=== PATIENT | male | born 1975 | race Caucasian/White ===

== ENCOUNTER → 2017-04-11 14:47 | Outpatient (CLI) | payer MEDICAID, SELFPAY ==
--- NOTE | 2017-04-11 14:50 | RAD_ITS ---
STUDY: X-RAY - LUMBAR SPINE REASON FOR EXAM: Male, 41 years old. Back pain with radiculopathy TECHNIQUE: Five view(s) of the lumbar spine were obtained. COMPARISON: None FINDINGS: There is reversal of the normal lumbar lordosis. There is no significant scoliosis. There is normal alignment of the vertebrae. There is minimal wedging of L3, L4 and L5. There are small osteophytes in the lumbar spine. There are no significant disc abnormalities. There is a vascular stent in the expected location of the left common iliac artery. RAD/L/S Spine Min 4 Views IMPRESSION: There are mild bony degenerative changes in the lumbar spine. There is minimal wedging of L3, L4 and L5 which is likely degenerative in etiology and chronic. Electronically Signed: Emy Garcia MD at 20:32 EST Tel Direct: [phone], Service support ,
--- NOTE | 2017-04-11 14:50 | RAD_ITS ---
STUDY: X-RAY - CERVICAL SPINE REASON FOR EXAM: Male, 41 years old. Neck pain with radiculopathy TECHNIQUE: Three view(s) of the cervical spine were obtained. COMPARISON: None FINDINGS: Normal anterior atlantoaxial articulation. Normal odontoid process. There is reversal of the normal cervical lordosis. There are small osteophytes on C5 and C6. There is moderate disc space narrowing at C5-6. There is mild disc space narrowing at C4-5. There is no prevertebral soft tissue swelling. The lung apices are clear. RAD/Cerv Spine 2 or 3 Views IMPRESSION: There are moderate degenerative disc changes at C5-6. There are mild degenerative disc changes at C4-5. Electronically Signed: Emy Garcia MD at 20:27 EST Tel Direct: [phone], Service support ,
== END ==
PROVIDERS: Family Provider Internal Medicine; PCP Internal Medicine; Visit Provider Nurse Practitioner Family
DX: R32 Unspecified urinary incontinence (principal); R20.0 Anesthesia of skin; N52.9 Male erectile dysfunction, unspecified; M54.5 Low back pain; M54.2 Cervicalgia; M54.12 Radiculopathy, cervical region
CPT/HCPCS: 72040; 72110

== ENCOUNTER 2017-04-22 14:00 | Outpatient (RCR) | payer MEDICAID, SELFPAY ==
--- NOTE | 2017-01-28 14:02 | HP.PTEVAL ---
Patient's Visit Information MELBA BRADLEY JR is a 41 year old M referred to Physical Therapy by Alejandro Lincoln MD with a diagnosis of LOW BACK PAIN. Date of Evaluation: 01/28/17 Physical Therapist: Hakan Reeder PT, - Visit Plan Frequency: 2x /Week Duration: 4 Weeks Plan: Aquatic PT for DLS,LE strengthening,conditioning,flexablity - Subjective Subjective: This 41 y/o male presents to physical therapy with low back pain for about year. Patient was recently diagnosed with severe PVD which patient has had a stent place in left leg. Patient has be under care of DR and said unable to find a pulse in legs . Thus plans to do US of legs to assess circulation. Patient started on blood thinner-plavix. 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 Patient had catherization.Symptoms worse walking,standing,bending ,lifting. Patient unable to perfform ADL'S and job demands due to pain. Thus had to stop working. Patient c/o parathesia/tingling.Due to complications with PVD and low back pain patient has impairments with daily function limits with gait.Patient has difficuilty sleeping at night. Bowel/bladder good. Coughing/sneezing -.Walking less than 5mins. SOCIAL: single. VOCATION: unemployed - Pain Bilateral Back Pain Intensity (Out of 10): 6 Pain Intensity Range: 10 Bilateral Lower Extremity Pain Intensity (Out of 10): 4 Pain Intensity Range: 10 - Objective POSTURE: anterior pelic tilt. GAIT: normal chris. NEURO: C/O partahesia/tingling legs,reflexes L3-4,L5-S1 2/3. PALPATION: tender L-S. LUMBAR ROM: flexion mod loss,extension min loss,side glides min. MMT: quads/hams /hip 4-/5 ankle 4/5. FLEXABILITY: mod hams tightness. SYMMTRIES: align - Special Tests L/S Slump test right side: Negative L/S Left Straight Leg Raise: Negative L/S Right Straight Leg Raise: Negative Lumbar Standing: Flexion - Mechanical Response: No effect Lumbar Standing: Flexion - Symptoms During Testing: Increases Lumbar Standing: Flexion - Symptoms After Testing: Worse Lumbar Standing: Extension - Mechanical Response: No effect Lumbar Standing: Extension - Symptoms During Testing: Increases Lumbar Standing: Extension - Symptoms After Testing: Worse - Goals Goal 1:: Independant with Aquatics Goal Time Frame: 4-6 Weeks Goal 2:: Independant with posture for ADL'S Goal Time Frame: 4-6 Weeks Goal 3:: Decrease leg and back pain by 40% or greater to improve function with walking and standing. Goal Time Frame: 4-6 Weeks Goal 4:: Patient increase strength of BLE to 4/5 to improve function witgh walking and standing. Goal Time Frame: 4-6 Weeks Goal 5:: Patient to improve lumbar min loss dfor function of recovery Goal Time Frame: 4-6 Weeks Goal 6:: Patient be able to walk greatwer than 5min to improve function. Goal Time Frame: 4-6 Weeks - Rehabilitation Potential Physical Therapy Diagnosis: Patient has multiple comlexity issues along with severe PVD affecting legs as well as low back pain impairs ability to walk or stand limitied distances ,pain ,and decrease strength Rehabilitation Potential: Fair - Anticipated Interventions Patient/Client Instruction: Educate patient on: Condition, Plan of Care For the Purpose of:: To decrease pain, To increase ROM, To improve muscle performance and motor function, To improve ability to perform ADL's, To increase tolerance to activity/condition/position, To improve performance and independence with ADL's, To improve ability of physical actions for home/community/work/leisure, To improve gait and locomotor functions, To improve health of tissue, To decrease soft tissue restriction, To increase flexibility/ROM, To improve endurance, To foster healthy habits, To prevent re-injury Therapeutic Exercise to Include: Strength training, Endurance training, Body mechanics, Postural training, Flexibilty training, In an aquatic setting, Dynamic Lumbar Stabilization Comment: BLE For the Purpose of:: To decrease pain, To increase ROM, To improve muscle performance and motor function, To improve ability to perform ADL's, To increase tolerance to activity/condition/position, To improve ability of physical actions for home/community/work/leisure, To improve gait and locomotor functions, To improve health of tissue, To decrease soft tissue restriction, To increase flexibility/ROM, To improve endurance, To improve ability to perform tasks related to life management Thank you for the opportunity to evaluate your patient. For Medicare and Medicare HMO plans, please review the plan of care and approve it. It will need to be FAXED BACK to us at [phone] for Medicare purposes. Please let me know if there are questions or concerns regarding this plan of care. Physician Signature: Date:
--- NOTE | 2017-04-22 14:22 | HP.PTDCSUM_ITS ---
HP - PT D/C Summary It has been my pleasure to treat MELBA BRADLEY under orders from Alejandro Lincoln MD, for the diagnosis of LOW BACK PAIN for a total of 14 visit(s). Discharge Date: 04/22/17 Please see the following information for a summary of their discharge status. - Subjective Subjective: Not much better..plan to see surgeon lumbar [facility] - Pain Bilateral Back Pain Intensity (Out of 10): 7 Bilateral Lower Extremity Pain Intensity (Out of 10): 7 LUE Pain Intensity (Out of 10): 7 - Overall Improvement % Improvement: 45 - Objective Objective/Function: POSTURE: MILD FOWARD POSTURE. GAIT: MILD FOWARD POSTURE SLOW ZULEYMA. PALAPATION: TENDER L-S. MMT: QUADS/HAMS 4-/5 ,HIP 4-/5 ,ANKLE 4/ 5. LUMBAR ROM: MOD LUMBAR MOD ,EXTENSION SEVERE. FLEXABLITY: hams mod - Goals Goal 1:: Independant with Aquatics Goal Progress: Progressing Goal 2:: Independant with posture for ADL'S Goal Progress: Progressing Goal 3:: Decrease leg and back pain by 50% or greater to improve function with walking and standing. Goal Progress: Progressing Goal 4:: Patient increase strength of BLE to 4/5 to improve function witgh walking and standing. Goal Progress: Progressing Goal 5:: Patient to improve lumbar min loss dfor function of recovery Goal Progress: Progressing Goal 6:: Patient be able to walk greatwer than 5min to improve function. Goal Progress: Progressing - Plan Plan: D/C TO DR CASTILLO SPECIALIST LUMBAR - D/C Information Discharge Comments: If there are questions or concerns regarding this patient's physical therapy, please feel free to call me at [phone]. Thank you for the referral of this patient. Sincerely, Hakan Reeder, PT,
== END 2017-04-22 19:00 | disposition home or self-care (01) ==
LOC: PT 14:00
PROVIDERS: Family Provider Internal Medicine; PCP Internal Medicine; Visit Provider Internal Medicine
DX: M54.5 Low back pain (principal)
CPT/HCPCS: 97113; 97162; 97530

== ENCOUNTER → 2017-05-28 13:48 | Outpatient (CLI) | payer MEDICAID, SELFPAY ==
[2017-05-28 16:01] LABS: Anion Gap 9 (5-15); BUN 6 mg/dL (7-18); BUN/Creat Ratio 8.8 RATIO (10-20); Calcium,Total 8.6 mg/dL (8.5-10.1); Chloride 96 mmol/L (98-107); Creatinine, Serum 0.68 mg/dL (0.70-1.30); EST Glomerular Filtration Rate 135 mL/min (>60); Est Glom Filt Rate - Afr Amer 163 mL/min (>60); Glucose 109 mg/dL (74-106); Potassium 3.1 mmol/L (3.5-5.1); Sodium Level 131 mmol/L (136-145)
== END ==
PROVIDERS: Family Provider Internal Medicine; PCP Internal Medicine; Visit Provider Nurse Practitioner Family
DX: I10 Essential (primary) hypertension (principal)
CPT/HCPCS: 36415; 80048

== ENCOUNTER → 2017-05-30 10:06 | Outpatient (CLI) | payer MEDICAID, SELFPAY ==
--- NOTE | 2017-05-30 10:08 | MRI_ITS ---
STUDY: MRI THORACIC SPINE WITHOUT CONTRAST REASON FOR EXAM: Male, 41 years old. Back pain with left arm pain and numbness. TECHNIQUE: Standardized fat and water weighted pulse sequences were obtained in the sagittal and axial planes. COMPARISON: None. FINDINGS: Normal kyphosis of the thoracic spine. There is no substantial scoliosis. There is multilevel degenerative disc disease of the midthoracic spine. There is no demonstrated focal disc herniation. There is disc desiccation, mild loss of the disc height with juxta-endplate bone marrow edema at the T8-9 level consistent with degenerative disc disease and type I discogenic endplate degeneration (sagittal STIR series 7, image 5). There is a vertebral body hemangioma involving the right posterior-lateral aspect of the L1 vertebra measuring 13 mm in diameter (axial T2 series 8, image 1). Normal visualized thoracic cord. The soft tissue structures are unremarkable. MRI/Spine Thoracic (Routine) IMPRESSION: 1. T8-9 advanced degenerative disc disease with type I discogenic endplate degeneration. 2. Multilevel degenerative disc disease of the midthoracic spine but without a demonstrated disc herniation. 3. L1 vertebral body hemangioma. Electronically Signed: Jey Cruz DO at 13:32 EDT Tel , Service support ,
== END ==
PROVIDERS: Family Provider Internal Medicine; PCP Internal Medicine; Visit Provider Orthopaedic Surgery
DX: M54.6 Pain in thoracic spine (principal)
CPT/HCPCS: 72146

== ENCOUNTER → 2017-06-25 10:29 | Outpatient (CLI) | payer MEDICAID, SELFPAY ==
[2017-06-25 12:21] LABS: Absolute Lymphocyte Count 1.75 X10^3/ul (0.83-4.51); Absolute Neutrophil Count 3.6 X10^3/uL (2.0-7.7); Basophil# 0.04 X10^3/uL; Basophil% 0.6 % (0-1); Eosinophil# 0.22 X10^3/uL; Eosinophils% 3.5 % (0-5); Hematocrit 47.3 % (40-54); Hemoglobin 16.5 g/dl (13.0-16.5); Lymphocyte # 1.75 X10^3/ul (4.0); Lymphocyte % 28.1 % (19-41); Mean Corp Hgb Conc 34.9 g/gl (32-36); Mean Corpuscular Hgb 31.4 pg (27.0-32.0); Mean Corpuscular Volume 89.9 fL (80-94); Mean Platelet Vol. 11.4 fl (6.2-12.0); Monocyte# 0.59 X10^3/uL; Monocyte% 9.5 % (0-10); Platelet Count 184 K/mm3 (150-450); RBC Distribution Width CV 13.1 % (11.6-14.6); RBC Distribution Width SD 42.9 fl (35.1-43.9); Red Blood Count 5.26 M/mm3 (4.6-6.2); White Blood Count 6.2 K/mm3 (4.4-11.0)
[2017-06-25 12:31] LABS: POSITIVE COUNT NO; POSITIVE DIFFERENTIAL NO; POSITIVE MORPHOLOGY NO
[2017-06-25 12:40] LABS: Anion Gap 7 (5-15); BUN 8 mg/dL (7-18); BUN/Creat Ratio 11.4 RATIO (10-20); Calcium,Total 8.8 mg/dL (8.5-10.1); Chloride 102 mmol/L (98-107); EST Glomerular Filtration Rate 130 mL/min (>60); Est Glom Filt Rate - Afr Amer 157 mL/min (>60); Glucose 92 mg/dL (74-106); Potassium 4.1 mmol/L (3.5-5.1); Sodium Level 135 mmol/L (136-145)
== END ==
PROVIDERS: Family Provider Internal Medicine; PCP Internal Medicine; Visit Provider Nurse Practitioner Family
DX: I10 Essential (primary) hypertension (principal); D69.6 Thrombocytopenia, unspecified
CPT/HCPCS: 80048; 85025

== ENCOUNTER 2017-07-06 15:05 | Emergency (ER) | payer MEDICAID, SELFPAY ==
[2017-07-06 15:06] VITALS: BP 141/67; PULSE 126; RESP 18; TEMP 37; O2SAT 95; BMI 26.6
[2017-07-06 16:22] VITALS: BP 141/101; PULSE 108; RESP 16; O2SAT 95
[2017-07-06] MEDS: Ondansetron 4 MG/2 ML Vial IV (16:23)
[2017-07-06] MEDS: HYDROmorphone 1 MG/ML Syringe IV ×2 (16:23→18:04)
[2017-07-06] MEDS: 0.9% Normal Saline 1,000 ML 1000 ML IV (16:23)
[2017-07-06 16:24] LABS: Absolute Neutrophil Count 9.1 X10^3/uL (2.0-7.7); Basophil# 0.02 X10^3/uL; Basophil% 0.2 % (0-1); Eosinophil# 0.29 X10^3/uL; Eosinophils% 2.3 % (0-5); Hematocrit 45.4 % (40-54); Hemoglobin 16.2 g/dl (13.0-16.5); Lymphocyte % 17.9 % (19-41); Mean Corp Hgb Conc 35.7 g/gl (32-36); Mean Corpuscular Hgb 31.5 pg (27.0-32.0); Mean Corpuscular Volume 88.3 fL (80-94); Mean Platelet Vol. 10.6 fl (6.2-12.0); Monocyte# 1.06 X10^3/uL; Monocyte% 8.2 % (0-10); Neutrophil # 9.05 X10^3/uL (2.7-7.7); Neutrophil % 70.4 % (47-70); Platelet Count 149 K/mm3 (150-450); RBC Distribution Width CV 12.8 % (11.6-14.6); RBC Distribution Width SD 40.8 fl (35.1-43.9); Red Blood Count 5.14 M/mm3 (4.6-6.2); White Blood Count 12.9 K/mm3 (4.4-11.0)
[2017-07-06 16:25] LABS: POSITIVE COUNT NO; POSITIVE DIFFERENTIAL NO; POSITIVE MORPHOLOGY NO
[2017-07-06 16:28] LABS: Prothrombin Time (Protime)PT. 12.9 SECONDS (11.7-14.9)
[2017-07-06 16:29] LABS: Partial Thromboplast Time 25.6 Seconds (24.1-36.2)
[2017-07-06 16:33] LABS: Anion Gap 10 (5-15); BUN 10 mg/dL (7-18); BUN/Creat Ratio 15.4 RATIO (10-20); Calcium,Total 8.8 mg/dL (8.5-10.1); Chloride 100 mmol/L (98-107); Creatinine, Serum 0.65 mg/dL (0.70-1.30); EST Glomerular Filtration Rate 142 mL/min (>60); Est Glom Filt Rate - Afr Amer 172 mL/min (>60); Estimated Creatinine Clearance 135.59 ml/min; Glucose 130 mg/dL (74-106); Potassium 3.7 mmol/L (3.5-5.1); Sodium Level 136 mmol/L (136-145)
[2017-07-06 16:45] LABS: Lactic Acid 1.5 mmol/L (0.4-2.0)
[2017-07-06 17:04] VITALS: BP 154/98; PULSE 114; RESP 22; O2SAT 98
[2017-07-06] MEDS: Heparin Injection 5,000 UNITS/ML Syringe 5000 UNITS IV (17:43)
[2017-07-06] MEDS: HEPARIN/D5w 25,000 UNITS 25,000 UNITS/250 ML IV.SOLN. 11 UNITS IV (17:43)
[2017-07-06 18:07] VITALS: BP 153/104; PULSE 119; RESP 17; O2SAT 95
--- NOTE | 2017-07-06 18:16 | NURSING ---
JAYME GIBBS ARRIVED IN ED; WE HAVE NO ROOM NUMBER AT RECEIVING FACILITY AND DID NOT CALL FOR AIR TRANSPORT. ATTEMPTED TO CALL A NURSE REPORT NUMBER GIVEN TO US BY TRANSFER LINE [phone] AND WAS DISCONNECTED BOTH TIMES. BEDSIDE REPORT GIVEN TO [facility].
--- NOTE | 2017-07-06 18:23 | ED.DCSUM_ITS ---
- ER Visit Summary Date of Service: 07/06/17 Chief Complaint: Left leg pain and numbness History of Present Illness: The patient is a [address] Lincoln. He has a history of a left iliac stent that was placed in December [address] Ray at [facility]. Patient was taken off his Plavix on July 04 due to a cervical fusion that was performed by Dr. Dawson at [facility] on July 01. He reports that yesterday he began experiencing left leg pain and numbness. He states his pain is 10 out of 10 severity. Is an aching pain that is much worse with movement or walking. Is taken Tylenol and oxycodone without relief. Physical Examination: Vitals: Stable. Afebrile. General: Well-nourished and well-developed. Head: Normocephalic atraumatic. Neck: Supple, no lymphadenopathy. No JVD. Nontender. Cardiovascular: Regular rate and rhythm. No murmurs. Respiratory: No respiratory distress. Clear to auscultation bilaterally. Abdominal: Soft, nontender, nondistended, normal bowel sounds. No guarding, rebound, or peritoneal signs. Back: Nontender. Extremities: Surgical site on the left iliac crest has mild surrounding contusion. There is no erythema, warmth, or induration to suggest infection. He has a 2+ right femoral pulse. I am unable to palpate a left femoral pulse. He is left leg is pale and cold. I am unable to Doppler a dorsalis pedis or posterior tibial pulse.. Skin: Normal color, no rash. Neurologic: Alert and oriented ?3. Cranial nerves II through XII are intact. He is able to move his left leg. He does have paresthesias.. Psych: Normal affect. Test Results: CBC is marked for white count of 12.9 with platelets of 149 lymphocytes of 18. Chem-7 is more for glucose 130 creatinine 0.65. Lactic acid is 1.5. INR is 1.0 and PTT is 25.6. Emergency Department Course and Treatment: Patient was given Dilaudid for his pain. After discussion with the spine surgeon, Dr. Dawson, he was started on a heparin bolus with a drip. Treatment Plan: The patient was discussed with Dr. Ray, the vascular surgeon at [facility], who is fine with patient going to urinate first to the hospital since he had this recent spinal fusion. I am awaiting to speak with a vascular surgeon from there. The patient will be transported by air due to the acute nature of an ischemic leg and the possibility of developing a hematoma from his recent cervical fusion and the need for 1 hour neuro checks. Disposition: Transferred in serious condition. Impression: 1. Acute ischemia left leg. 2. History of left iliac stent. 3. Cervical fusion July 01, 2017. 4. Critical care time 30 minutes. This note was generated with [employer] dictation software. It may contain incorrect words, spelling, and punctuation that were not noted in review of the chart prior to signing ED Disposition - Plan for ED Patient: Chief Complaint: Numb/Ting Referrals: Alejandro Lincoln MD [Primary Care Provider] -
== END 2017-07-06 18:19 | disposition home or self-care (01) ==
PROVIDERS: Emergency Provider Emergency Medicine; Family Provider Internal Medicine; PCP Internal Medicine
DX: I99.8 Other disorder of circulatory system (principal); Z95.828 Presence of other vascular implants and grafts; Z98.1 Arthrodesis status; J44.9 Chronic obstructive pulmonary disease, unspecified; I10 Essential (primary) hypertension; E78.00 Pure hypercholesterolemia, unspecified; Z72.0 Tobacco use; Z79.82 Long term (current) use of aspirin; Z79.891 Long term (current) use of opiate analgesic; Z79.899 Other long term (current) drug therapy
CPT/HCPCS: 80048; 83605; 85025; 85610; 85730; 96361; 96365; 96375; 96376; 99285; J2405

== ENCOUNTER 2017-07-22 14:29 | Emergency (ER) | payer MEDICAID, SELFPAY ==
[2017-07-22 14:30] VITALS: BP 132/90; PULSE 129; RESP 18; TEMP 36.7; O2SAT 97; BMI 27.4
--- NOTE | 2017-07-22 15:07 | RAD_ITS ---
STUDY: X-RAY CHEST REASON FOR EXAM: Male, 42 years old. Cough. Flulike symptoms. TECHNIQUE: Flulike symptoms. COMPARISON: None. FINDINGS: The lungs are clear and expanded. There is no demonstrated pleural abnormality. Normal size heart. Normal mediastinum and michael. Normal visualized pulmonary arteries. Normal visualized aortic arch and descending thoracic aorta. Normal visualized thoracic spine. Prior fusion in the lower cervical spine. There is no demonstrated abnormality of the visualized soft tissue structures of the upper abdomen. RAD/Chest PA and Lateral IMPRESSION: Normal x-ray examination of the chest. Electronically Signed: Davion Lanza MD at 15:41 EDT Tel [phone], Service support ,
--- NOTE | 2017-07-22 15:17 | ED.VISSUMM ---
- ER Visit Summary Date of Service: 07/22/17 Chief Complaint: Earache, sore throat, and myalgias History of Present Illness: The patient is a 42 M who presents with right ear pain, sore throat, and myalgias that have been getting worse over the past 2 days. Patient states his pain is aching. Patient states nothing seems to make it better or worse. Patient states he had recent surgery at [facility] for vascular occlusion of his left lower extremity. Patient was also concerned over possible infection of his incision. Patient denies any discharge or drainage from the incision. Patient denies any fevers but admits to some chills and sweats. Admits to some nausea but denies any vomiting. Patient states he has been constipated due to the pain medication but states this has resolved. Physical Examination: Vital signs showed a blood pressure 132/90 heart rate of 129, respiratory rate of 18, temperature of 98.1, pulse ox over 97% on room air patient is in no acute distress. Oral mucosa is pink and moist. The left tympanic membrane is erythematous. The right tympanic membrane has a mild effusion. Nasal mucosa is pink and moist. Neck is supple. Trachea is midline. No JVD noted. Heart was regular and tachycardic. Lungs are clear and equal bilateral. There is good respiratory effort noted. Abdomen is soft and nontender. Cranial nerves II through XII are intact. There are no focal motor or sensory deficits noted. Incision is clean and dry. There is some mild erythema consistent with healing. There is no discharge or drainage. There is no tenderness noted. The remaining physical exam is within normal limits. Test Results: CBC and basic metabolic profile were within normal limits. INR was therapeutic at 2.1. Rapid strep and influenza swabs were negative. PA and lateral chest x-ray does not show any acute cardiopulmonary process. Emergency Department Course and Treatment: Patient was given IV fluids here. Patient felt better on reevaluation. Patient was given prescription for Augmentin. Patient was instructed to follow-up with his primary care physician and surgeon as scheduled. Patient understood and was agreeable with the plan. All questions were answered. Disposition: Discharge home Impression: Left otitis media, mild dehydration This note was generated with [employer] dictation software. It may contain incorrect words, spelling, and punctuation that were not noted in review of the chart prior to signing ED Disposition - Plan for ED Patient: Disposition: Home or Assisted Living Chief Complaint: General Illness Diagnosis: Left acute otitis media, Dehydration, mild Instructions: ED Otitis Media Acute Adult, ED Dehydration Prescriptions: Amox/Clavulanate Tablet [Augmentin Tablet] 875 mg PO Q12H #20 tab Referrals: Alejandro Lincoln MD [Primary Care Provider] -
[2017-07-22] MEDS: 0.9% Normal Saline 1,000 ML 1000 ML IV (15:18)
--- NOTE | 2017-07-22 15:20 | ED.DCSUM_ITS ---
- ER Visit Summary Date of Service: 07/22/17 Chief Complaint: Earache, sore throat, and myalgias History of Present Illness: The patient is a 42 M who presents with right ear pain, sore throat, and myalgias that have been getting worse over the past 2 days. Patient states his pain is aching. Patient states nothing seems to make it better or worse. Patient states he had recent surgery at for vascular occlusion of his left lower extremity. Patient was also concerned over possible infection of his incision. Patient denies any discharge or drainage from the incision. Patient denies any fevers but admits to some chills and sweats. Admits to some nausea but denies any vomiting. Patient states he has been constipated due to the pain medication but states this has resolved. Physical Examination: Vital signs showed a blood pressure 132/90 heart rate of 129, respiratory rate of 18, temperature of 98.1, pulse ox over 97% on room air patient is in no acute distress. Oral mucosa is pink and moist. The left tympanic membrane is erythematous. The right tympanic membrane has a mild effusion. Nasal mucosa is pink and moist. Neck is supple. Trachea is midline. No JVD noted. Heart was regular and tachycardic. Lungs are clear and equal bilateral. There is good respiratory effort noted. Abdomen is soft and nontender. Cranial nerves II through XII are intact. There are no focal motor or sensory deficits noted. Incision is clean and dry. There is some mild erythema consistent with healing. There is no discharge or drainage. There is no tenderness noted. The remaining physical exam is within normal limits. Test Results: CBC and basic metabolic profile were within normal limits. INR was therapeutic at 2.1. Rapid strep and influenza swabs were negative. PA and lateral chest x-ray does not show any acute cardiopulmonary process. Emergency Department Course and Treatment: Patient was given IV fluids here. Patient felt better on reevaluation. Patient was given prescription for Augmentin. Patient was instructed to follow-up with his primary care physician and surgeon as scheduled. Patient understood and was agreeable with the plan. All questions were answered. Disposition: Discharge home Impression: Left otitis media, mild dehydration This note was generated with [email or web address] dictation software. It may contain incorrect words, spelling, and punctuation that were not noted in review of the chart prior to signing ED Disposition - Plan for ED Patient: Disposition: Home or Assisted Living Chief Complaint: General Illness Diagnosis: Left acute otitis media, Dehydration, mild Instructions: ED Otitis Media Acute Adult, ED Dehydration Prescriptions: Amox/Clavulanate Tablet [Augmentin Tablet] 875 mg PO Q12H #20 tab Referrals: Alejandro Lincoln MD [Primary Care Provider] -
[2017-07-22 15:29] LABS: Absolute Lymphocyte Count 1.17 X10^3/ul (0.83-4.51); Absolute Neutrophil Count 7.9 X10^3/uL (2.0-7.7); Basophil# 0.02 X10^3/uL; Basophil% 0.2 % (0-1); Eosinophil# 0.06 X10^3/uL; Eosinophils% 0.6 % (0-5); Hematocrit 35.3 % (40-54); Hemoglobin 12.1 g/dl (13.0-16.5); Lymphocyte # 1.17 X10^3/ul (4.0); Lymphocyte % 11.9 % (19-41); Mean Corp Hgb Conc 34.3 g/gl (32-36); Mean Corpuscular Hgb 31.4 pg (27.0-32.0); Mean Corpuscular Volume 91.7 fL (80-94); Mean Platelet Vol. 10.2 fl (6.2-12.0); Monocyte# 0.64 X10^3/uL; Monocyte% 6.5 % (0-10); Neutrophil # 7.89 X10^3/uL (2.7-7.7); Neutrophil % 80.6 % (47-70); Platelet Count 280 K/mm3 (150-450); RBC Distribution Width CV 13.3 % (11.6-14.6); Red Blood Count 3.85 M/mm3 (4.6-6.2); White Blood Count 9.8 K/mm3 (4.4-11.0)
[2017-07-22 15:37] LABS: International Normalized Ratio 2.1; Prothrombin Time (Protime)PT. 23.2 SECONDS (11.7-14.9)
[2017-07-22 15:40] LABS: Anion Gap 8 (5-15); BUN 4 mg/dL (7-18); BUN/Creat Ratio 5.7 RATIO (10-20); Calcium,Total 8.4 mg/dL (8.5-10.1); Chloride 106 mmol/L (98-107); Creatinine, Serum 0.71 mg/dL (0.70-1.30); EST Glomerular Filtration Rate 129 mL/min (>60); Est Glom Filt Rate - Afr Amer 156 mL/min (>60); Estimated Creatinine Clearance 119.81 ml/min; Glucose 91 mg/dL (74-106); Potassium 3.4 mmol/L (3.5-5.1); Sodium Level 141 mmol/L (136-145)
[2017-07-22 15:41] LABS: POSITIVE COUNT NO; POSITIVE DIFFERENTIAL NO; POSITIVE MORPHOLOGY NO
[2017-07-22 17:23] VITALS: BP 129/72; PULSE 118; RESP 14; O2SAT 97
== END 2017-07-22 17:26 | disposition home or self-care (01) ==
PROVIDERS: Emergency Provider Emergency Medicine; Family Provider Internal Medicine; PCP Internal Medicine
DX: H66.92 Otitis media, unspecified, left ear (principal); E86.0 Dehydration; I10 Essential (primary) hypertension; E78.00 Pure hypercholesterolemia, unspecified; I73.9 Peripheral vascular disease, unspecified; Z72.0 Tobacco use; Z79.82 Long term (current) use of aspirin; Z79.01 Long term (current) use of anticoagulants; Z79.899 Other long term (current) drug therapy
CPT/HCPCS: 36415; 71046; 80048; 85025; 85610; 87077; 87804; 87880; 96360; 99284; J7030

== ENCOUNTER 2017-08-09 21:39 | Emergency (ER) | payer MEDICAID, SELFPAY ==
[2017-08-09 21:39] VITALS: BP 128/90; PULSE 107; RESP 15; TEMP 36.9; BMI 25.8
[2017-08-09 22:24] LABS: Absolute Lymphocyte Count 2.38 X10^3/ul (0.83-4.51); Absolute Neutrophil Count 3.1 X10^3/uL (2.0-7.7); Basophil# 0.04 X10^3/uL; Basophil% 0.6 % (0-1); Differential Indicated SCAN CRITERIA MET; Eosinophil# 0.43 X10^3/uL; Eosinophils% 6.7 % (0-5); Hematocrit 42.4 % (40-54); Hemoglobin 14.5 g/dl (13.0-16.5); Lymphocyte # 2.38 X10^3/ul (4.0); Lymphocyte % 36.9 % (19-41); Mean Corp Hgb Conc 34.2 g/gl (32-36); Mean Corpuscular Hgb 31.6 pg (27.0-32.0); Mean Corpuscular Volume 92.4 fL (80-94); Mean Platelet Vol. 11.2 fl (6.2-12.0); Monocyte# 0.54 X10^3/uL; Monocyte% 8.4 % (0-10); Neutrophil # 3.05 X10^3/uL (2.7-7.7); Neutrophil % 47.2 % (47-70); POSITIVE COUNT YES; POSITIVE DIFFERENTIAL NO; POSITIVE MORPHOLOGY NO; Platelet Count 189 K/mm3 (150-450); RBC Distribution Width CV 14.5 % (11.6-14.6); RBC Distribution Width SD 48.7 fl (35.1-43.9); Red Blood Count 4.59 M/mm3 (4.6-6.2); White Blood Count 6.5 K/mm3 (4.4-11.0)
[2017-08-09 22:25] LABS: International Normalized Ratio 1.9; Prothrombin Time (Protime)PT. 21.5 SECONDS (11.7-14.9)
[2017-08-09 22:29] LABS: D-Dimer Quantitative (DVT/PE) 0.46 FEU/ug/m (0.27-0.49)
[2017-08-09 22:37] LABS: Anion Gap 6 (5-15); BUN 4 mg/dL (7-18); Calcium,Total 8.6 mg/dL (8.5-10.1); Chloride 112 mmol/L (98-107); Creatinine, Serum 0.57 mg/dL (0.70-1.30); EST Glomerular Filtration Rate 164 mL/min (>60); Est Glom Filt Rate - Afr Amer 198 mL/min (>60); Estimated Creatinine Clearance 154.62 ml/min; Glucose 110 mg/dL (74-106); Potassium 3.3 mmol/L (3.5-5.1); Sodium Level 142 mmol/L (136-145)
[2017-08-09 22:52] LABS: Atypical Lymphocyte RARE %
--- NOTE | 2017-08-09 23:04 | ED.VISSUMM ---
- ER Visit Summary Date of Service: 08/09/17 Chief Complaint: Left foot pain History of Present Illness: The patient is a 42 M who presents with left foot and leg pain. He describes this as spasms or a pins and needles sensation. His pain began yesterday. It was 10 out of 10. He took Tylenol with relief and states his pain is currently only 6 out of 10. He does have some paresthesias in the left foot. He had neck surgery on July 01. He was taken off of his Plavix for a week before and afterwards. He came to the emergency department due to left leg pain and was found to have a pulseless foot and was life flighted to [facility] for an acute arterial occlusion. He did have 2 clots which were surgically removed and also believes a stent was placed in the left leg. He has had some chronic foot pain and paresthesias since that time. However when he felt for a posterior tibial pulse today which she is normally able to feel he was unable to palpate it became concerned and presented here to the emergency department. Physical Examination: Afebrile heart rate 107 vitals otherwise normal Heart regular rhythm slightly tachycardic Lungs are clear Abdomen soft The left lower extremity is warm and dry his capillary refill is 2-3 seconds he has easily palpable posterior tibial and dorsalis pedis pulses he had has sensation which is intact to light touch he has no calf tenderness he has some mild foot tenderness compartments are soft Test Results: CBC normal. BMP notable for potassium 3.3. INR 1.9. D-dimer 0.46. Emergency Department Course and Treatment: Patient has no evidence of ischemia or acute arterial occlusion. Patient has easily palpable dorsalis pedis and posterior tibial pulses. Here in the emergency department the patient again felt for his pulses and now states that he can in fact feel them. He does not have clinical evidence of a DVT either. He has no calf tenderness he has no soft tissue swelling. His d-dimer is within normal limits. We will still have him get a venous duplex as well as an outpatient definitive follow-up. He states that he has Percocet at home but that this causes constipation and he does not like to take it. However he does report that he believes he may need something more than Tylenol so was given a prescription for tramadol. He was advised to follow-up as an outpatient. He was instructed on specific signs and symptoms to monitor for and conditions under which to return to the emergency department. He was discharged. Treatment Plan: [] Disposition: Discharge Impression: Left foot pain This note was generated with [employer] dictation software. It may contain incorrect words, spelling, and punctuation that were not noted in review of the chart prior to signing ED Disposition - Plan for ED Patient: Chief Complaint: Lower Extremity Injury Referrals: Alejandro Lincoln MD [Primary Care Provider] -
--- NOTE | 2017-08-09 23:11 | ED.DEP ---
ED Disposition - Plan for ED Patient: Chief Complaint: Lower Extremity Injury Instructions: ED Muscle Aching Prescriptions: traMADol [Ultram] 50 mg PO Q6H PRN 3 Days #12 tab PRN Reason: Pain Referrals: Alejandro Lincoln MD [Primary Care Provider] -
[2017-08-09 23:25] VITALS: BP 124/68; PULSE 78; RESP 18; O2SAT 96
== END 2017-08-09 23:26 | disposition home or self-care (01) ==
LOC: ED 22:17
PROVIDERS: Emergency Provider Emergency Medicine; Family Provider Internal Medicine; PCP Internal Medicine
DX: M79.672 Pain in left foot (principal); I73.9 Peripheral vascular disease, unspecified; J44.9 Chronic obstructive pulmonary disease, unspecified; I10 Essential (primary) hypertension; E78.00 Pure hypercholesterolemia, unspecified; Z86.718 Personal history of other venous thrombosis and embolism; Z72.0 Tobacco use; Z79.01 Long term (current) use of anticoagulants; Z79.82 Long term (current) use of aspirin; Z79.899 Other long term (current) drug therapy
CPT/HCPCS: 80048; 85025; 85379; 85610; 99282; A4216

== ENCOUNTER 2017-08-13 12:13 | Outpatient (RCR) | payer MEDICAID, SELFPAY ==
[2017-07-15 18:21] LABS: International Normalized Ratio 2.2; Prothrombin Time (Protime)PT. 24.1 SECONDS (11.7-14.9)
[2017-07-22 10:26] LABS: Prothrombin Time (Protime)PT. 22.3 SECONDS (11.7-14.9)
[2017-08-05 12:20] LABS: International Normalized Ratio 1.6
[2017-08-13 14:40] LABS: International Normalized Ratio 2.2; Prothrombin Time (Protime)PT. 24.1 SECONDS (11.7-14.9)
== END 2017-08-13 13:00 | disposition home or self-care (01) ==
LOC: MTLAB 12:13
PROVIDERS: Family Provider Internal Medicine; PCP Internal Medicine; Visit Provider Nurse Practitioner Family
DX: Z79.899 Other long term (current) drug therapy (principal)
CPT/HCPCS: 36415; 85610

== ENCOUNTER 2017-09-10 09:56 | Outpatient (RCR) | payer MEDICAID, SELFPAY ==
[2017-08-27 10:54] LABS: International Normalized Ratio 1.8; Prothrombin Time (Protime)PT. 20.5 SECONDS (11.7-14.9)
[2017-09-03 12:41] LABS: International Normalized Ratio 1.8; Prothrombin Time (Protime)PT. 21.3 SECONDS (11.7-14.9)
[2017-09-10 12:07] LABS: International Normalized Ratio 1.7; Prothrombin Time (Protime)PT. 20.3 SECONDS (11.7-14.9)
== END 2017-09-10 11:00 | disposition home or self-care (01) ==
LOC: MTLAB 09:56
PROVIDERS: Family Provider Internal Medicine; PCP Internal Medicine; Visit Provider Nurse Practitioner Family
DX: Z79.899 Other long term (current) drug therapy (principal)
CPT/HCPCS: 36415; 85610

== ENCOUNTER 2017-10-08 12:08 | Outpatient (RCR) | payer MEDICAID, SELFPAY ==
[2017-09-18 12:49] LABS: International Normalized Ratio 2.5
[2017-10-01 14:32] LABS: International Normalized Ratio 1.9; Prothrombin Time (Protime)PT. 21.7 SECONDS (11.7-14.9)
== END 2017-10-08 13:00 ==
LOC: MTLAB 12:08
PROVIDERS: Family Provider Internal Medicine; PCP Internal Medicine; Visit Provider Nurse Practitioner Family
DX: Z79.899 Other long term (current) drug therapy (principal)
CPT/HCPCS: 36415; 85610

== ENCOUNTER 2017-11-12 13:56 | Outpatient (RCR) | payer MEDICAID, SELFPAY ==
[2017-10-22 12:39] LABS: International Normalized Ratio 1.7; Prothrombin Time (Protime)PT. 19.6 SECONDS (11.7-14.9)
[2017-10-29 14:41] LABS: Prothrombin Time (Protime)PT. 22.4 SECONDS (11.7-14.9)
[2017-11-12 16:25] LABS: International Normalized Ratio 1.6; Prothrombin Time (Protime)PT. 19.1 SECONDS (11.7-14.9)
== END 2017-11-12 15:00 | disposition home or self-care (01) ==
LOC: MTLAB 13:56
PROVIDERS: Family Provider Internal Medicine; PCP Internal Medicine; Visit Provider Nurse Practitioner Family
DX: Z79.899 Other long term (current) drug therapy (principal)
CPT/HCPCS: 36415; 85610

== ENCOUNTER 2017-12-02 10:46 | Outpatient (RCR) | payer MEDICAID, SELFPAY ==
[2017-11-19 10:18] LABS: Absolute Lymphocyte Count 2.18 X10^3/ul (0.83-4.51); Absolute Neutrophil Count 3.5 X10^3/uL (2.0-7.7); Basophil# 0.04 X10^3/uL; Basophil% 0.6 % (0-1); Eosinophil# 0.29 X10^3/uL; Eosinophils% 4.3 % (0-5); Hematocrit 50.6 % (40-54); Hemoglobin 17.4 g/dl (13.0-16.5); Lymphocyte # 2.18 X10^3/ul (4.0); Lymphocyte % 32.7 % (19-41); Mean Corp Hgb Conc 34.4 g/gl (32-36); Mean Corpuscular Hgb 30.2 pg (27.0-32.0); Mean Corpuscular Volume 87.7 fL (80-94); Monocyte# 0.64 X10^3/uL; Monocyte% 9.6 % (0-10); Neutrophil % 52.5 % (47-70); Platelet Count 169 K/mm3 (150-450); RBC Distribution Width CV 14.4 % (11.6-14.6); RBC Distribution Width SD 46.5 fl (35.1-43.9); Red Blood Count 5.77 M/mm3 (4.6-6.2); White Blood Count 6.7 K/mm3 (4.4-11.0)
[2017-11-19 10:19] LABS: International Normalized Ratio 1.9; Prothrombin Time (Protime)PT. 21.7 SECONDS (11.7-14.9)
[2017-11-19 10:21] LABS: POSITIVE COUNT NO; POSITIVE DIFFERENTIAL NO; POSITIVE MORPHOLOGY NO
[2017-11-19 10:39] LABS: ALB/GLOB Ratio 1.1 RATIO (0.9-2.4); AST(SGOT) 15 U/L (15-37); Alanine Aminotransfer ALT/SGPT 25 U/L (16-61); Albumin, Serum 3.6 g/dL (3.2-5.0); Alkaline Phosphatase 126 U/L (45-117); Anion Gap 9 (5-15); BUN 10 mg/dL (7-18); BUN/Creat Ratio 13.2 RATIO (10-20); Calcium,Total 8.8 mg/dL (8.5-10.1); Chloride 106 mmol/L (98-107); Cholesterol 173 mg/dL (200); Creatinine, Serum 0.76 mg/dL (0.70-1.30); EST Glomerular Filtration Rate 118 mL/min (>60); Est Glom Filt Rate - Afr Amer 143 mL/min (>60); Globulin 3.4 g/dL (2.2-4.2); Glucose 89 mg/dL (74-106); High Density Lipoprotein 30 mg/dL; Potassium 4.4 mmol/L (3.5-5.1); Sodium Level 142 mmol/L (136-145); Triglycerides 193 mg/dL; Very Low Density Lipoprotein 39 mg/dL (5-40)
[2017-12-02 12:33] LABS: International Normalized Ratio 2.2; Prothrombin Time (Protime)PT. 24.7 SECONDS (11.7-14.9)
== END 2017-12-02 12:00 | disposition home or self-care (01) ==
LOC: MTLAB 10:46
PROVIDERS: Family Provider Internal Medicine; PCP Internal Medicine; Visit Provider Nurse Practitioner Family
DX: Z79.899 Other long term (current) drug therapy (principal); E78.5 Hyperlipidemia, unspecified; D69.6 Thrombocytopenia, unspecified
CPT/HCPCS: 36415; 80053; 80061; 85025; 85610

== ENCOUNTER 2018-01-13 09:00 | Outpatient (RCR) | payer MEDICAID, SELFPAY ==
--- NOTE | 2017-12-30 13:17 | HP.PTEVAL_ITS ---
Patient's Visit Information MELBA BRADLEY is a 42 year old M referred to Physical Therapy by SHANAE DAWSON with a diagnosis of SPONDYLOSIS WITH MYELOPATHY CERVICL REGION,CERVICAL RADICULOPATHY. Date of Evaluation: 12/30/17 Physical Therapist: Hakan Reeder PT, - Visit Plan Frequency: 2x /Week Duration: 4 Weeks Plan: Aquatic PT cervical ROM ,BUE/LE ROM ,STRENGTH ,ENDURANCE ,POSTURAL EX' - Subjective Subjective: This 42 y/o male presents to physical therapy with cervical fusion anterior on June done DR Dawson at [facility]. Patient d/c next day with [employer] collar and need fww for home. Patient then had complication DVT in left severe pain/swelling went to ER then life flighted to [facility] .Thus had surgery to remove blood clots and replaced stents in femoral artery. Patient was in hospital for 1week d/c to home. Patient has to get INR checked ever week. Patient has no arm symptoms ,just legs symptoms with fatigue and tired.C/O parathesia/tingling left foot. Denies BERMUDEZ/ ti nnutus/naseau/dizziness.Patient has severe leg pain when walking 5min and standing. Patient better with rest in recliner. Patient sleping okay at night. Patient did have PT prior to surgery. Patient blood pressure can elevate. Patient surgery affected QOL and function with ADL'S. SOCIAL: . VOCATION: unemployed - Pain Bilateral Neck Pain Intensity (Out of 10): 7 Pain Intensity Range: 10 Bilateral Lower Extremity Pain Intensity (Out of 10): 7 Pain Intensity Range: 10 - Objective POSTURE: mild foward posture ,rounded shoulders. GAIT: normal chris. NEURO: denies UE parathesia/tingling,reflexes C5-6-7 1/3,c/o parathesia feet diminished light touch. PALPATION: tender UT/levator. CERVICAL ROM: flexion min loss,lateral flexion/rotation mod loss,extension mod loss. BUE AROM: WFL. MMT: 4/5 except shoulder 4-/5. MMT: quad 3+/5hams 4-/5 left hip flexion 3+/5 ankle 4-/5,right 4/5 - Special Tests C/S Radiculapathy - Left Upper limb tension test: Negative C/S Radiculapathy - Right Upper limb tension test: Negative - Goals Goal 1:: Independant with Aquatic PT Goal Time Frame: 4-6 Weeks Goal 2:: Decrease cervival pain and leg symptoms by 50% or greater to improve function Goal Time Frame: 4-6 Weeks Goal 3:: Patient to be I ndependant with posture for ADL'S Goal Time Frame: 4-6 Weeks Goal 4:: Patient improve strength UE/LE to improve function with ADL'S. Goal Time Frame: 4-6 Weeks Goal 5:: Pateint improve ADL'S and housework tasks with min limitations Goal Time Frame: 4-6 Weeks Goal 6:: Patient to improve neck owestry by 5 points to improve function - Rehabilitation Potential Physical Therapy Diagnosis: This patient has multiple complexity issues with cervical fusion [place] DVT's in left leg had surgery to remove clot. Patient has cervical pain with decrease cervical ROM,strength weakness left leg from DVT'S post surgeru along with PVD with comorbities to infleunce patien condtion Rehabilitation Potential: Good - Anticipated Interventions Patient/Client Instruction: Educate patient on: Condition, Plan of Care For the Purpose of:: To decrease pain, To increase ROM, To improve muscle performance and motor function, To improve ability to perform ADL's, To increase tolerance to activity/condition/position, To improve ability of physical actions for home/community/work/leisure, To improve health of tissue, To decrease soft tissue restriction, To increase flexibility/ROM, To improve health and function, To improve ability to perform tasks related to life management Therapeutic Exercise to Include: Strength training, Body mechanics, Postural training, Flexibilty training, In an aquatic setting, Active ROM For the Purpose of:: To decrease pain, To increase ROM, To improve muscle performance and motor function, To improve ability to perform ADL's, To increase tolerance to activity/condition/position, To improve performance and independence with ADL's, To improve ability of physical actions for home/community/work/leisure, To improve health of tissue, To decrease soft tissue restriction, To increase flexibility/ROM, To improve ability to perform tasks related to life management Thank you for the opportunity to evaluate your patient. For Medicare and Medicare HMO plans, please review the plan of care and approve it. It will need to be FAXED BACK to us at [phone] for Medicare purposes. Please let me know if there are questions or concerns regarding this plan of care. Physician Sig nature: Date:
--- NOTE | 2018-03-02 11:15 | HP.PTDCNRP_ITS ---
HP - Discharge Summary (1) - Patient Information MELBA BRADLEY was seen in my office for initial evaluation on 12/30/17. The following Plan of Care was established for this patient: Initial Frequency: 2x /Week Initial Duration: 4 Weeks - Anticipated Interventions Patient/Client Instruction: Educate patient on: Condition, Plan of Care For the Purpose of:: To decrease pain, To increase ROM, To improve muscle perfo rmance and motor function, To improve ability to perform ADL's, To increase tolerance to activity/condition/position, To improve ability of physical actions for home/community/work/leisure, To improve health of tissue, To decrease soft tissue restriction, To increase flexibility/ROM, To improve health and function, To improve ability to perform tasks related to life management Therapeutic Exercise to Include: Strength training, Body mechanics, Postural training, Flexibilty training, In an aquatic setting, Active ROM For the Purpose of:: To decrease pain, To increase ROM, To improve muscle performance and motor function, To improve ability to perform ADL's, To increase tolerance to activity/condition/position, To improve performance and in dependence with ADL's, To improve ability of physical actions for home/community/work/leisure, To improve health of tissue, To decrease soft tissue restriction, To increase flexibility/ROM, To improve ability to perform tasks related to life management This patient was last seen in our office 01/13/18. Pertinent comments regarding their Physical therapy will appear below: Patient seen for PT for cervical fusion in Aquatic PT for ROM ,strengthening and posture,conditioning thus is d/c. At this point I will be discontinuing this patient from physical therapy. I would be happy to see this patient again in the future if found appropriate by the physician. Thank you! Hakan Reeder, PT, Cert MDT, OCS
== END 2018-01-13 19:00 | disposition home or self-care (01) ==
LOC: PT 09:00
PROVIDERS: Family Provider Internal Medicine; PCP Internal Medicine
DX: M47.12 Other spondylosis with myelopathy, cervical region (principal); M54.12 Radiculopathy, cervical region
CPT/HCPCS: 97113; 97162

== ENCOUNTER 2018-02-11 09:47 | Outpatient (RCR) | payer MEDICAID, SELFPAY ==
[2018-01-23 10:29] LABS: International Normalized Ratio 1.1; Prothrombin Time (Protime)PT. 13.9 SECONDS (11.7-14.9)
[2018-01-30 10:33] LABS: International Normalized Ratio 1.8
[2018-02-11 12:52] LABS: International Normalized Ratio 2.4
== END 2018-02-13 09:50 | disposition home or self-care (01) ==
LOC: LAB 09:47
PROVIDERS: Family Provider Internal Medicine; PCP Internal Medicine; Referring Provider Nurse Practitioner Family; Visit Provider Nurse Practitioner Family
DX: Z79.899 Other long term (current) drug therapy (principal)
CPT/HCPCS: 36415; 85610

== ENCOUNTER 2018-03-18 15:40 | Outpatient (RCR) | payer MEDICAID, SELFPAY ==
[2018-01-22 10:11] VITALS: BMI 26.9
[2018-03-05 14:27] VITALS: BMI 27.3
[2018-03-18 19:30] LABS: International Normalized Ratio 2.2; Prothrombin Time (Protime)PT. 24.9 SECONDS (11.7-14.9)
== END 2018-03-18 16:40 | disposition home or self-care (01) ==
LOC: LAB 15:40
PROVIDERS: Family Provider Internal Medicine; PCP Internal Medicine; Referring Provider Nurse Practitioner Family; Visit Provider Nurse Practitioner Family
DX: Z79.899 Other long term (current) drug therapy (principal)
CPT/HCPCS: 36415; 85610

== ENCOUNTER 2018-04-24 09:00 | Outpatient (RCR) | payer MEDICAID, SELFPAY ==
[2018-04-17 10:25] VITALS: BMI 27.3
[2018-04-24 10:22] LABS: International Normalized Ratio 2.4; Prothrombin Time (Protime)PT. 26.2 SECONDS (11.7-14.9)
== END 2018-05-14 13:41 | disposition home or self-care (01) ==
LOC: LAB 09:00
PROVIDERS: Family Provider Internal Medicine; PCP Internal Medicine; Referring Provider Nurse Practitioner Family; Visit Provider Nurse Practitioner Family
DX: Z79.01 Long term (current) use of anticoagulants (principal)
CPT/HCPCS: 36415; 85610

== ENCOUNTER 2018-06-05 10:56 | Outpatient (RCR) | payer MEDICAID, SELFPAY ==
[2018-05-15 13:42] VITALS: BMI 27.6
[2018-06-05 10:26] VITALS: BMI 27.6
[2018-06-05 12:29] LABS: International Normalized Ratio 2.5; Prothrombin Time (Protime)PT. 26.7 SECONDS (11.7-14.9)
[2018-06-05 12:37] LABS: Anion Gap 7 (5-15); BUN 7 mg/dL (7-18); Calcium,Total 8.4 mg/dL (8.5-10.1); Chloride 109 mmol/L (98-107); Creatinine, Serum 0.78 mg/dL (0.70-1.30); EST Glomerular Filtration Rate 115 mL/min (>60); Est Glom Filt Rate - Afr Amer 139 mL/min (>60); Glucose 99 mg/dL (74-106); Potassium 4.2 mmol/L (3.5-5.1); Sodium Level 141 mmol/L (136-145)
== END 2018-06-14 23:59 ==
LOC: BIMLAB 10:56
PROVIDERS: Family Provider Internal Medicine; PCP Internal Medicine; Referring Provider Nurse Practitioner Family; Visit Provider Nurse Practitioner Family
DX: Z79.01 Long term (current) use of anticoagulants (principal)
CPT/HCPCS: 36415; 80048; 85610

== ENCOUNTER → 2018-06-15 10:35 | Outpatient (CLI) | payer MEDICAID, SELFPAY ==
[2018-06-15 09:51] VITALS: BMI 27.6
[2018-06-15 10:38] LABS: Squamous Epithelial Cells - UA 0 SEEN /hpf (0-5)
[2018-06-15 12:28] LABS: Color, Urine Yellow (Yellow); Glucose, Dipstick Normal (Normal); Ketone-Dipstick Negative (Negative); Leukocyte Esterase-Dipstick 25 /ul (Negative); Nitrite-Dipstick Negative (Negative); Occult Blood-Urine 25 /ul (Negative); Protein-Dipstick 15 mg/dl (Negative); Urine Bilirubin Dipstick Negative (Negative); Urine Clarity Clear (Clear); Urine Urobilinogen 4 mg/dl (Normal); Urine pH 6.5 (5.0 - 8.0)
[2018-06-15 12:45] LABS: Bacteria RARE /hpf (None Seen); Mucous, Urine 1+ /hpf (<or=2+); Red Blood Cells-Urine 0-5 SEEN /hpf (0-5); White Blood Cells 0-5 SEEN /hpf (0-5)
== END ==
PROVIDERS: Family Provider Internal Medicine; PCP Internal Medicine; Visit Provider Internal Medicine
DX: R30.0 Dysuria (principal)
CPT/HCPCS: 81001; 87086

== ENCOUNTER → 2018-06-16 11:05 | Outpatient (CLI) | payer MEDICAID, SELFPAY ==
[2018-06-15 09:51] VITALS: BMI 27.6
--- NOTE | 2018-06-16 11:12 | RAD_ITS ---
STUDY: X-RAY - LUMBAR SPINE REASON FOR EXAM: Male, 42 years old. Back pain. TECHNIQUE: 3 view(s) of the lumbar spine were obtained. COMPARISON: 04/11/2017 FINDINGS: There is reversal of the normal lumbar lordosis. There is no substantial scoliosis. There is a normal alignment of the vertebrae. No acute bodies. No compression fractures. Stable minimal anterior osteophytes and minimal wedging of vertebral bodies at L3, L4, and L5. Normal disc heights. Stable vascular stent in the left common iliac artery. RAD/Lumbar Spine 2 or 3 Views IMPRESSION: No change and no acute abnormalities. Electronically Signed: Aly Forbes MD at 19:57 EDT , Service support ,
== END ==
PROVIDERS: Family Provider Internal Medicine; PCP Internal Medicine; Referring Provider Nurse Practitioner Family; Visit Provider Nurse Practitioner Family
DX: M54.5 Low back pain (principal)
CPT/HCPCS: 72100

== ENCOUNTER 2018-07-10 14:30 | Outpatient (RCR) | payer MEDICAID, SELFPAY ==
[2018-06-22 11:15] VITALS: BMI 27.6
--- NOTE | 2018-06-30 14:51 | HP.PTEVAL_ITS ---
Patient's Visit Information MELBA BRADLEY is a 42 year old M referred to Physical Therapy by Alejandro Lincoln MD with a diagnosis of LOW BACK PAIN. Date of Evaluation: 06/30/18 Physical Therapist: Hakan Reeder PT, Cert MDT, OCS - Visit Plan Frequency: 2x /Week Duration: 4 Weeks Plan: AQUATIC PT FOR LUMBAR ROM,STRENGTHENING,DLS,ENDURANCE ACTIVITIES - Subjective Findings: This 42 y/o male presnets to physical therapy with low back pain . Patient has had lumbar pain many years with radicular symptoms right leg worse than left.Location symptrical lumbar hip to legs. Patient has multiple comorbities along with PVD in legs as well as recent cervcal fusion last year,DVT ,COPD.Patient had x-rays. Patient has chronic pain legs /back . Symptoms worse with walking,standing,bending ,lifting and sitting. Sypmtoms a ffects housework tasks and ADL'S with difficulty to perform. Patient symptoms stinging/ache. Patient symptoms affect sleeping.Bowel/bladder -. Patient symptoms affects affects QOL and function. SOCIAL: fiance ,son. VOCATION: unemployed - Pain Bilateral Back Pain Intensity (Out of 10): 9 Pain Intensity Range: 10 Bilateral Lower Extremity Pain Intensity (Out of 10): 9 Pain Intensity Range: 10 - Objective POSTURE: mild foward posture. GAIT: ambulates antalgic left side LE slow chris foward posture slow chris. NEURO: reflexes L3-4,L4-5,L5-S1 1/3 ,C/O Parathesia feet. OBSERVATION: left calf atrophied. MMT: quads/hams 3+5 ,hip 3+/5,ankle 3+/5 left,right 4-/5. FLEXABLITY: hams mod/severe limited - Special Tests L/S Slump test left side: Positive L/S Slump test right side: Positive L/S Left Straight Leg Raise: Positive L/S Right Straight Leg Raise: Positive - Goals Goal 1:: Independant with Aqutaic PT . Goal Time Frame: 4-6 Weeks Goal 2:: Patient to improve gait with less antalgic gait 60% of the tiime. Goal Time Frame: 4-6 Weeks Goal 3:: Patient to decrease lumbar and legs symptoms by 50% or greater to improve function Goal Time Frame: 4-6 Weeks Goal 4:: Patient to improve lumbar ROM for function of recovery Goal Time Frame: 4-6 Weeks Goal 5:: Patient increase strength LE by 1/2 grade to improve function. Goal Time Frame: 4-6 Weeks - Rehabilitation Potential Physical Therapy Diagnosis: Patient has low back affecting legs with weakness ,poor lumbar ROM,pain ,antalgic gait alomg with other combities to influence patients condtion Rehabilitation Potential: Fair - Anticipated Interventions Patient/Client Instruction: Educate patient on: Condition, Plan of Care For the Purpose of:: To decrease pain, To increase ROM, To improve muscle performance and motor function, To improve ability to perform ADL's, To increase tolerance to activity/condition/position, To improve ability of physical actions for home/community/work/leisure, To improve health of tissue, To decrease soft tissue restriction, To increase flexibility/ROM, To improve endurance, To reduce risk of recurrence, To improve ability to perform tasks related to life management Therapeutic Exercise to Include: Strength training, Endurance training, Body mechanics, Postural training, Flexibilty training, In an aquatic setting, Dynamic Lumbar Stabilization Comment: BLE For the Purpose of:: To decrease pain, To increase ROM, To improve muscle performance and motor function, To improve ability to perform ADL's, To increase tolerance to activity/condition/position, To improve ability of physical actions for home/community/work/leisure, To improve health of tissue, To decrease soft tissue restriction, To increase flexibility/ROM, To improve endurance, To improve ability to perform tasks related to life management Thank you for the opportunity to evaluate your patient. For Medicare and Medicare HMO plans, please review the plan of care and approve it. It will need to be FAXED BACK to us at [phone] for Medicare purposes. For Medicare only, by signing this I certify the plan of care. Please let me know if there are questions or concerns regarding this plan of care. Physician Signature: Date:
--- NOTE | 2018-10-13 07:29 | HP.PTDCNRP_ITS ---
HP - Discharge Summary (1) - Patient Information MELBA BRADLEY was seen in my office for initial evaluation on 06/30/18. The following Plan of Care was established for this patient: Initial Frequency: 2x /Week Initial Duration: 4 Weeks - Anticipated Interventions Patient/Client Instruction: Educate patient on: Condition, Plan of Care For the Purpose of:: To decrease pain, To increase ROM, To improve muscle perfo rmance and motor function, To improve ability to perform ADL's, To increase tolerance to activity/condition/position, To improve ability of physical actions for home/community/work/leisure, To improve health of tissue, To decrease soft tissue restriction, To increase flexibility/ROM, To improve endurance, To reduce risk of recurrence, To improve ability to perform tasks related to life management Therapeutic Exercise to Include: Strength training, Endurance training, Body mechanics, Postural training, Flexibilty training, In an aquatic setting, Dynamic Lumbar Stabilization For the Purpose of:: To decrease pain, To increase ROM, To improve muscle performance and motor function, To improve ability to perform ADL's, To increase tolerance to activity/condition/position, To improve ability of physical actions for home/community/work/leisure, To improve health of tissue, To decrease soft tissue restriction, To increase flexibility/ROM, To improve endurance, To improve ability to perform tasks related to life management This patient was last seen in our office . Pertinent comments regarding their Physical therapy will appear below: Patient was seen for PT for LBP for Aquatic PT lumbar ROM,strengthening,postural ex's,thus is d/c. At this point I will be discontinuing this patient from physical therapy. I would be happy to see this patient again in the future if found appropriate by the physician. Thank you! Hakan Reeder, PT, Cert MDT, OCS
== END 2018-07-10 19:00 | disposition home or self-care (01) ==
LOC: PT 14:30
PROVIDERS: Family Provider Internal Medicine; PCP Internal Medicine; Visit Provider Internal Medicine
DX: M54.5 Low back pain (principal)
CPT/HCPCS: 97113; 97162

== ENCOUNTER 2018-07-17 22:37 | Emergency (ER) | payer MEDICAID, SELFPAY ==
[2018-06-22 11:15] VITALS: BMI 27.6
[2018-07-17 22:37] VITALS: BP 127/83; PULSE 110; RESP 16; TEMP 37.1; O2SAT 94; BMI 27.6
[2018-07-17 22:45] VITALS: TEMP 37.1
--- NOTE | 2018-07-17 22:49 | ED.RN ---
PT STATES HE HAS HAD INFECTED HAIRS ON HIS LEGS SINCE THEY WERE SHAVED FOR A PROCEDURE IN JUNE, PT WAS ON DOXYCYCLIN 100MG, CEPHALEXIN 500MG FOR IT BUT DID NOT FINISH THE COURSE OF ANTIBIOTICS. TODAY HE TOOK A DOSE OF EACH, STATES HIS SIG OTHER TRIED TO POP IT AT HOME. THE ABSCESS IS 4CM WIDE AND 4CM LONG VERY RED, WARM, PAINFUL. MD AT BEDSIDE.
--- NOTE | 2018-07-17 23:00 | ED.VISSUMM ---
- ER Visit Summary Date of Service: 07/17/18 Chief Complaint: Abscess History of Present Illness: The patient is a 43 M presenting with abscess right thigh. He states this started 2 days ago. He has had abscesses in the past. He states his fianc?e tried to pop it with her fingers at home. He had no significant drainage. He denies fever. He had leftover doxycycline and Keflex and he took 1 dose of each tonight. No other complaints. Physical Examination: Vitals are stable. Patient is afebrile. Alert no acute distress. HEENT exam is unremarkable. Neck is supple. Lungs are clear and equal bilaterally. Heart is regular rate and rhythm. Extremities 3cm right lateral thigh abscess with induration and fluctuance Skin is warm and dry. No focal neurologic deficit. Remainder of exam is unremarkable. Emergency Department Course and Treatment: I&D was performed. Anesthetized with lidocaine. Incised with 11 blade. Moderate amount of pus was drained. Irrigated with saline. Probed to break up loculations. Patient was given prescription for doxycycline. Advised to follow-up with primary care physician. Advised return ED if worsening complaints. Disposition: Discharge home Impression: Right thigh abscess, I&D This note was generated with [employer] dictation software. It may contain incorrect words, spelling, and punctuation that were not noted in review of the chart prior to signing ED Disposition - Plan for ED Patient: Instructions: ED Abscess IandD Prescriptions: Doxycycline 100 mg PO BID #20 capsule Referrals: Alejandro Lincoln MD [Primary Care Provider] -
--- NOTE | 2018-07-17 23:03 | ED.DCSUM_ITS ---
- ER Visit Summary Date of Service: 07/17/18 Chief Complaint: Abscess History of Present Illness: The patient is a 43 M presenting with abscess right thigh. He states this started 2 days ago. He has had abscesses in the past. He states his fianc?e tried to pop it with her fingers at home. He had no sign ificant drainage. He denies fever. He had leftover doxycycline and Keflex and he took 1 dose of each tonight. No other complaints. Physical Examination: Vitals are stable. Patient is afebrile. Alert no acute distress. HEENT exam is unremarkable. Neck is supple. Lungs are clear and equal bilaterally. Heart is regular rate and rhythm. Extremities 3cm right lateral thigh abscess with induration and fluctuance Skin is warm and dry. No focal neurologic deficit. Remainder of exam is unremarkable. Emergency Department Course and Treatment: I&D was performed. Anesthetized with lidocaine. Incised with 11 blade. Moderate amount of pus was drained. Irrigated with saline. Probed to break up loculations. Patient was given prescr iption for doxycycline. Advised to follow-up with primary care physician. Advised return ED if worsening complaints. Disposition: Discharge home Impression: Right thigh abscess, I&D This note was generated with [employer] dictation software. It may contain incorrect words, spelling, and punctuation that were not noted in review of the chart prior to signing ED Disposition - Plan for ED Patient: Instructions: ED Abscess IandD Prescriptions: Doxycycline 100 mg PO BID #20 capsule Referrals: Alejandro Lincoln MD [Primary Care Provider] -
--- NOTE | 2018-07-17 23:15 | ED.DEP ---
ED Disposition - Plan for ED Patient: Instructions: ED Abscess IandD Prescriptions: Doxycycline 100 mg PO BID #20 capsule Referrals: Alejandro Lincoln MD [Primary Care Provider] -
[2018-07-17 23:26] VITALS: BP 128/72; PULSE 80; RESP 15; O2SAT 100
== END 2018-07-17 23:28 | disposition home or self-care (01) ==
PROVIDERS: Emergency Provider Emergency Medicine; Family Provider Internal Medicine; PCP Internal Medicine
DX: L02.415 Cutaneous abscess of right lower limb (principal); J44.9 Chronic obstructive pulmonary disease, unspecified; I10 Essential (primary) hypertension; E78.00 Pure hypercholesterolemia, unspecified; F41.9 Anxiety disorder, unspecified; F32.9 Major depressive disorder, single episode, unspecified; Z72.0 Tobacco use; Z79.82 Long term (current) use of aspirin; Z79.899 Other long term (current) drug therapy
CPT/HCPCS: 10060; 99283

== ENCOUNTER → 2018-08-03 | Outpatient (CLI) | payer MEDICAID, SELFPAY ==
[2018-08-03 09:29] VITALS: BMI 27.6
[2018-08-03 12:29] LABS: Absolute Lymphocyte Count 2.02 X10^3/ul (0.83-4.51); Absolute Neutrophil Count 2.5 X10^3/uL (2.0-7.7); Basophil# 0.04 X10^3/uL; Basophil% 0.7 % (0-1); Eosinophil# 0.29 X10^3/uL; Eosinophils% 5.4 % (0-5); Hemoglobin 17.1 g/dl (13.0-16.5); Lymphocyte # 2.02 X10^3/ul (4.0); Lymphocyte % 37.3 % (19-41); Mean Corp Hgb Conc 34.2 g/gl (32-36); Mean Corpuscular Volume 90.7 fL (80-94); Mean Platelet Vol. 12.3 fl (6.2-12.0); Monocyte# 0.58 X10^3/uL; Monocyte% 10.7 % (0-10); Neutrophil # 2.49 X10^3/uL (2.7-7.7); Neutrophil % 45.9 % (47-70); Platelet Count 167 K/mm3 (150-450); RBC Distribution Width CV 14.1 % (11.6-14.6); RBC Distribution Width SD 47.1 fl (35.1-43.9); Red Blood Count 5.51 M/mm3 (4.6-6.2); White Blood Count 5.4 K/mm3 (4.4-11.0)
[2018-08-03 12:34] LABS: POSITIVE COUNT NO; POSITIVE DIFFERENTIAL NO; POSITIVE MORPHOLOGY NO
== END | disposition home or self-care (01) ==
LOC: BIMLAB 09:56
PROVIDERS: Family Provider Internal Medicine; PCP Internal Medicine; Visit Provider Internal Medicine
DX: D69.6 Thrombocytopenia, unspecified (principal)
CPT/HCPCS: 36415; 85025

== ENCOUNTER 2018-08-05 09:03 | Outpatient (RCR) | payer MEDICAID, SELFPAY ==
[2018-07-22 10:34] VITALS: BMI 27.6
[2018-08-03 09:29] VITALS: BMI 27.6
--- NOTE | 2018-08-06 15:45 | HP.OTFCE_ITS ---
HP OT Functional Capacity Eval - Task Lift Comments: Pt is on a 5-10# lift restriction at this time. - Work Activity/Posture Bending: Occasional Ability (1-33% of day) Comments: Low occasional ability with external support Squatting: Occasional Ability (1-33% of day) Comments: Low occasional ability with external support Kneeling: Occasional Ability (1-33% of day) Comments: Low occasional ability with external support Reaching out: Occasional Ability (1-33% of day) Comments: Low occasional ability with external support Reaching up: No Ablility (0% of day) Comments: request no reach over 90 degrees of shoulder flex. Sitting: Occasional Ability (1-33% of day) Walking: Occasional Ability (1-33% of day) Comments: low occasional ability Standing: Occasional Ability (1-33% of day) Comments: low occasional ability - Reference Duration Sedentary Sedentary Light Light Light Medium Medium Medium Heavy Very Heavy Heavy Occasional (0-33% of day) Frequent (34-66% of day) Constant (67-100% of day) 10 # Negligible Negligible 15 # 8 # Negligible 20 # 10# Negli. 35 # 18 # 7 # 50 # 25 # 10 # 75 # 100 # >100 # 38 # 50 # >50 # 15 # 20 # >20 # - Patient Information Height: 1.7 m Weight:: 77.111 kg Hand Dominance: right - Medical History Medical History Including Restrictions: Pt was in good health until 2014, Pt states he had a stent was placed in 2017 due to lack of circulation in his legs. pt started to have neck and joint pain. Pt underwent neck sx on July 01, 2017. Pt states bone grafts did not take and needs to undergo another sx. Pt states he developed blood clots, with another stint placed in it, and currently is on blood thiner. Pt was dx with neropathy, and DDD. pt smokes 1/2 pk a day- pt states he is on a 5-10# - Diagnoses Diagnoses: DDD. Neuropathy. peripheral arthery disease. COPD dx 2016. Weak ness - Symptoms Symptoms: Numbness/tingling. burning sensation in the legs. limited ambulation. limited mobility. Joint pain - Pain Pain: pt reports current pain is 5/10. Pt states pain in all joints increses with activity. - Work History Work History: Pt states he was employed at [employer] for 24 years. 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 Pt [place] he was unable to perform his job duties and quit his job. This pt states he last worked August 302016. 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 Pt states he was required to lift heavy material, climb ladders and handle a number of different tool. Pt states due to his symptoms he no longer feels safe performing his job duties and quit his job. - Behavioral Behavioral: pt verbalized frustration of his health and limited ability to tolerate working. Pt apologies for the need of stopping and having to quit or not be able to perform tasks that were asked for the assessment. - ADLS ADLS: This 43 year old male states he lives in a two story home with basement. Lives with and a 10 year old and 8 year old boys. Pt states he has 3 entry steps with rail. Pt states he resides first floor because he has difficlty going up and down the steps. Pt states he has bathtub and he needs assist from his to get in and out of the bathtub. Pt states he can dress ind. pt driving short distance. pts is performing all cleaning, cooking and shopping tasks. pt states he is using a walker and cane at times. - Physical Examination Physical Examination: pt demo with muscle atrophy of left LE. left calf measurment in curcum. 34 cm and right at 36.5 cm ROM: pt demo with limited neck ROM- did not perform neck extension due to pain- pt guarded during ROM. pt limited with lumbar ext. pt demo bilatera hip flex at 80*. pt increased to 8/10 pt rested and pain decreased to 6/10 Strength: Pt demo with Bilateral shoulder flex 3/5. pt demo bilateral bicep/tricep at 4/10. hip flx at 3+/5. knee flex 3+/5. knee ext 3+5. pt demo LE weakness and bilateral shoulder flexion weakness grossly throughout at 3+/5. Pain limiting pts ability to tolerate resistance testing. Right [address] Department Strength Average: 28.[address] Department Strength Percentile: <1% Left [address] Department Strength Average: 38.[address] Department Strength Percentile: <1% Right Lateral Pinch Average: 8.66 Right Lateral Pinch Percentile: <10% Left Lateral Pinch Average: 6.66 Left Lateral Pinch Percentile: <10% Right Tripod Pinch Average: 10.00 Right Tripod Pinch Percentile: <10% Left Tripod Pinch Average: 12.66 Left Tripod Pinch Percentile: <10% Sensation: right thumb 3.61 left 4.17. right IF 3.61 left 4.17. right MF 3.61 left 4.17. right RF 3.61 left 4.17. right LF 3.61 left 4.17. pt demo with a reduced sensation on bilateral hands more on left then right. Fine Motor: 9 hole peg testing for fine mortor manipulation. Right 45 sec. 0%. left 50 sec. 0%. pt demo with slow ability to perform the 9 hole peg test demo limited fine motor skills. Balance: No loss of balance was noted during assessment. - Non Material Handling Activities Bending: pt demo the ability to bend forward three times and then attepted 10 times but needed to stop at 3. pt holding his breath during activity- pain 8/10 Squatting: pt demo the ability to squat three times-pt c/o pain in knees and back at 8/10. Pt leaning on. on table top for support during this activity. Pt can squat on a low occasional ability. Kneeling: pt demo the ability to kneel three times with use of support of chair and table top. pt guarded and demo activity with minimal spine motion. Pt report pain 8/10. pt holding breath and demo difficutly with standing up following taking more time to right self to standing. pt can kneel on a low occasional ability. Reaching out/up: pt is unable to reach up due to surgons limitations on no reach past 90*. pt demo the ability to reach out three times, ten times ten times rapidly - pt reported pain at upper trap and thoracic region 8/10. pt can reach out on a occasional ability Walking: pt demo a reciprocal step pattern with a antalgic gait. Ambulating 8.5 min and needing to stop. Pt off sets his weight and bends forward resting hands on knees/or reaching for wall. Pt reports pain with increase ambulation in back, hips and legs. Standing: pt demo the ability to stand for 3 min with shifting his body wieght. pt can stand on a low occasional basis. Sitting: pt sat for 15 min and needed to stand and ambulate three feet away from chair to decrease his pain. Pt returned to sitting and again stood after 15min of sitting. Pt can sit on a occasional ability. Climbing Stairs: Pt ascended ten steps with heavy use of bilateral UE using hand rails, with a left foot single step up pattern- use of reciprocal step pattern down- came down 4 steps and stopped and rested for 30 sec. and then continued down the steps. At bottom of steps pt stood for 1 min prior to being able to ambulate. - Dynamic Occasional Lifting Capacity Floor Lift: pt is currenty on a 5-10# lift restriction.
--- NOTE | 2018-08-07 10:15 | HP.OTFCE_ITS ---
HP OT Functional Capacity Eval - Task Lift Comments: Pt is on a 5-10# lift restriction at this time. - Work Activity/Posture Bending: Occasional Ability (1-33% of day) Comments: Low occasional ability with external support Squatting: Occasional Ability (1-33% of day) Comments: Low occasional ability with external support Kneeling: Occasional Ability (1-33% of day) Comments: Low occasional ability with external support Reaching out: Occasional Ability (1-33% of day) Comments: Low occasional ability with external support Reaching up: No Ablility (0% of day) Comments: request no reach over 90 degrees of shoulder flex. Sitting: Occasional Ability (1-33% of day) Walking: Occasional Ability (1-33% of day) Comments: low occasional ability Standing: Occasional Ability (1-33% of day) Comments: low occasional ability - Reference Duration Sedentary Sedentary Light Light Light Medium Medium Medium Heavy Very Heavy Heavy Occasional (0-33% of day) Frequent (34-66% of day) Constant (67-100% of day) 10 # Negligible Negligible 15 # 8 # Negligible 20 # 10# Negli. 35 # 18 # 7 # 50 # 25 # 10 # 75 # 100 # >100 # 38 # 50 # >50 # 15 # 20 # >20 # - Patient Information Height: 1.7 m Weight:: 77.111 kg Hand Dominance: right - Medical History Medical History Including Restrictions: Pt was in good health until 2014, Pt states he had a stent was placed in 2017 due to lack of circulation in his legs. pt started to have neck and joint pain. Pt underwent neck sx on July 01, 2017. Pt states bone grafts did not take and needs to undergo another sx. Pt states he developed blood clots, with another stint placed in it, and currently is on blood thinner. Pt was dx with neuropathy, and DDD. pt smokes 1/2 pk a day- pt states he is on a 5-10# - Diagnoses Diagnoses: DDD. Neuropathy. peripheral arthery disease. COPD dx 2016. We akness - Symptoms Symptoms: Numbness/tingling. burning sensation in the legs. limited ambulation. limited mobility. Joint pain - Pain Pain: pt reports current pain is 5/10. Pt states pain in all joints increses with activity. - Work History Work History: Pt states he was employed at [employer] for 24 years. 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 Pt Beatty he was unable to perform his job duties and quit his job. This pt states he last worked August 302016. 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 Pt states he was required to lift heavy material, climb ladders and handle a number of different tool. Pt states due to his symptoms he no longer feels safe performing his job duties and quit his job. - Behavioral Behavioral: pt verbalized frustration of his health and limited ability to tolerate working. Pt apologies for the need of stopping and having to quit or not be able to perform tasks that were asked for the assessment. - ADLS ADLS: This 43 year old male states he lives in a two story home with basement. Lives with and a 10 year old and 8 year old boys. Pt states he has 3 entry steps with rail. Pt states he resides first floor because he has difficlty going up and down the steps. Pt states he has bathtub and he needs assist from his to get in and out of the bathtub. Pt states he can dress ind. pt driving short distance. pts is performing all cleaning, cooking and shopping tasks. pt states he is using a walker and cane at times. - Physical Examination Physical Examination: pt demo with muscle atrophy of left LE. left calf measurment in curcum. 34 cm and right at 36.5 cm ROM: pt demo with limited neck ROM- did not perform neck extension due to pain- pt guarded during ROM. pt limited with lumbar ext. pt demo bilatera hip flex at 80*. pt increased to 8/10 pt rested and pain decreased to 6/10 Strength: Pt demo with Bilateral shoulder flex 3/5. pt demo bilateral bicep/tricep at 4/10. hip flx at 3+/5. knee flex 3+/5. knee ext 3+5. pt demo LE weakness and bilateral shoulder flexion weakness grossly throughout at 3+/5. Pain limiting pts ability to tolerate resistance testing. Right Aerial Applicator Pilot Strength Average: 28.33 Right Aerial Applicator Pilot Strength Percentile: <1% Left Aerial Applicator Pilot Strength Average: 38.33 Left Aerial Applicator Pilot Strength Percentile: <1% Right Lateral Pinch Average: 8.66 Right Lateral Pinch Percentile: <10% Left Lateral Pinch Average: 6.66 Left Lateral Pinch Percentile: <10% Right Tripod Pinch Average: 10.00 Right Tripod Pinch Percentile: <10% Left Tripod Pinch Average: 12.66 Left Tripod Pinch Percentile: <10% Sensation: right thumb 3.61 left 4.17. right IF 3.61 left 4.17. right MF 3.61 left 4.17. right RF 3.61 left 4.17. right LF 3.61 left 4.17. pt demo with a reduced sensation on bilateral hands more on left then right. Fine Motor: 9 hole peg testing for fine mortor manipulation. Right 45 sec. 0%. left 50 sec. 0%. pt demo with slow ability to perform the 9 hole peg test demo limited fine motor skills. Balance: No loss of balance was noted during assessment. - Non Material Handling Activities Bending: pt demo the ability to bend forward three times and then attepted 10 times but needed to stop at 3. pt holding his breath during activity- pain 8/10 Squatting: pt demo the ability to squat three times-pt c/o pain in knees and back at 8/10. Pt leaning on. on table top for support during this activity. Pt can squat on a low occasional ability. Kneeling: pt demo the ability to kneel three times with use of support of chair and table top. pt guarded and demo activity with minimal spine motion. Pt report pain 8/10. pt holding breath and demo difficutly with standing up following taking more time to right self to standing. pt can kneel on a low occasional ability. Reaching out/up: pt is unable to reach up due to surgons limitations on no reach past 90*. pt demo the ability to reach out three times, ten times ten times rapidly - pt reported pain at upper trap and thoracic region 8/10. pt can reach out on a occasional ability Walking: pt demo a reciprocal step pattern with a antalgic gait. Ambulating 8.5 min and needing to stop. Pt off sets his weight and bends forward resting hands on knees/or reaching for wall. Pt reports pain with increase ambulation in back, hips and legs. Standing: pt demo the ability to stand for 3 min with shifting his body wieght. pt can stand on a low occasional basis. Sitting: pt sat for 15 min and needed to stand and ambulate three feet away from chair to decrease his pain. Pt returned to sitting and again stood after 15min of sitting. Pt can sit on a occasional ability. Climbing Stairs: Pt ascended ten steps with heavy use of bilateral UE using hand rails, with a left foot single step up pattern- use of reciprocal step pattern down- came down 4 steps and stopped and rested for 30 sec. and then continued down the steps. At bottom of steps pt stood for 1 min prior to being able to ambulate. - Dynamic Occasional Lifting Capacity Floor Lift: pt is currenty on a 5-10# lift restriction.
== END 2018-08-05 19:00 | disposition home or self-care (01) ==
LOC: OT 09:03
PROVIDERS: Family Provider Internal Medicine; PCP Internal Medicine; Referring Provider Internal Medicine; Visit Provider Internal Medicine
DX: Z02.71 Encounter for disability determination (principal)
CPT/HCPCS: 97750

== ENCOUNTER 2018-08-06 09:07 | Outpatient (RCR) | payer MEDICAID, SELFPAY ==
[2018-08-03 09:29] VITALS: BMI 27.6
[2018-08-06 12:29] LABS: International Normalized Ratio 2.3; Prothrombin Time (Protime)PT. 25.1 SECONDS (11.7-14.9)
== END 2018-08-14 23:59 ==
LOC: BIMLAB 09:07
PROVIDERS: Family Provider Internal Medicine; PCP Internal Medicine; Referring Provider Nurse Practitioner Family; Visit Provider Nurse Practitioner Family
DX: Z79.01 Long term (current) use of anticoagulants (principal)
CPT/HCPCS: 36415; 85610

== ENCOUNTER → 2018-10-16 | Outpatient (CLI) | payer MEDICAID, SELFPAY ==
[2018-09-14 14:12] VITALS: BMI 27.6
[2018-10-16 12:21] LABS: Absolute Lymphocyte Count 1.63 X10^3/uL (0.83-4.51); Absolute Neutrophil Count 4.6 X10^3/uL (2.0-7.7); Basophil# 0.08 X10^3/uL; Eosinophil# 1.07 X10^3/uL; Eosinophils% 13.2 % (0-5); Hematocrit 49.1 % (40-54); Hemoglobin 16.6 g/dL (13.0-16.5); Lymphocyte # 1.63 X10^3/ul (4.0); Lymphocyte % 20.2 % (19-41); Mean Corp Hgb Conc 33.8 g/dL (32-36); Mean Corpuscular Hgb 30.1 pg (27.0-32.0); Mean Corpuscular Volume 89.1 fL (80-94); Mean Platelet Vol. 11.6 fl (6.2-12.0); Monocyte# 0.66 X10^3/uL; Monocyte% 8.2 % (0-10); NRBC Flagged by Analyzer 0 % (0-5); Neutrophil # 4.61 X10^3/uL (2.7-7.7); Platelet Count 158 K/mm3 (150-450); RBC Distribution Width CV 13.6 % (11.6-14.6); RBC Distribution Width SD 44.3 fl (35.1-43.9); Red Blood Count 5.51 M/mm3 (4.6-6.2); White Blood Count 8.1 K/mm3 (4.4-11.0)
[2018-10-16 12:39] LABS: International Normalized Ratio 1.7; Prothrombin Time (Protime)PT. 19.9 SECONDS (11.7-14.9)
== END | disposition home or self-care (01) ==
LOC: BIMLAB 10:19
PROVIDERS: Family Provider Internal Medicine; PCP Internal Medicine; Visit Provider Internal Medicine
DX: Z51.81 Encounter for therapeutic drug level monitoring (principal); Z79.01 Long term (current) use of anticoagulants
CPT/HCPCS: 36415; 85025; 85610

== ENCOUNTER 2018-10-26 20:23 | Emergency (ER) | payer MEDICAID, SELFPAY ==
[2018-10-16 10:56] VITALS: BMI 27.6
[2018-10-26 20:24] VITALS: BP 122/76; PULSE 98; RESP 16; TEMP 36.8; O2SAT 97; BMI 25.9
[2018-10-26 22:27] LABS: Absolute Lymphocyte Count 1.94 X10^3/uL (0.83-4.51); Absolute Neutrophil Count 5.1 X10^3/uL (2.0-7.7); Basophil# 0.08 X10^3/uL; Basophil% 0.9 % (0-1); Eosinophil# 0.53 X10^3/uL; Eosinophils% 6.2 % (0-5); Hematocrit 49.5 % (40-54); Hemoglobin 17.1 g/dL (13.0-16.5); Lymphocyte # 1.94 X10^3/ul (4.0); Lymphocyte % 22.8 % (19-41); Mean Corp Hgb Conc 34.5 g/dL (32-36); Mean Corpuscular Hgb 30.9 pg (27.0-32.0); Mean Corpuscular Volume 89.5 fL (80-94); Monocyte# 0.82 X10^3/uL; Monocyte% 9.6 % (0-10); NRBC Flagged by Analyzer 0 % (0-5); Neutrophil # 5.09 X10^3/uL (2.7-7.7); Neutrophil % 59.9 % (47-70); Platelet Count 165 K/mm3 (150-450); RBC Distribution Width CV 13.5 % (11.6-14.6); Red Blood Count 5.53 M/mm3 (4.6-6.2); White Blood Count 8.5 K/mm3 (4.4-11.0)
--- NOTE | 2018-10-26 22:40 | RAD_ITS ---
STUDY: X-RAY - RIGHT ELBOW REASON FOR EXAM: Male, 43 years old. Redness and swelling. TECHNIQUE: 3 view(s) of the elbow. COMPARISON: None. FINDINGS: Soft tissue swelling superficial to the olecranon. No visible fracture. No osseous destruction. Alignment anatomic. Mild degenerative changes. RAD/Elbow min 3 Views IMPRESSION: No acute osseous abnormality. Soft tissue swelling superficial to the olecranon suspicious for bursitis. Electronically Signed: Benjamín Uribe, at 23:12 EDT Tel , Service support ,
[2018-10-26 22:48] LABS: Anion Gap 2 (5-15); BUN 8 mg/dL (7-18); BUN/Creat Ratio 9.4 RATIO (10-20); Calcium,Total 8.7 mg/dL (8.5-10.1); Chloride 107 mmol/L (98-107); Creatinine, Serum 0.85 mg/dL (0.70-1.30); EST Glomerular Filtration Rate 104 mL/min (>60); Est Glom Filt Rate - Afr Amer 125 mL/min (>60); Estimated Creatinine Clearance 106.18 ml/min; Glucose 94 mg/dL (74-106); Potassium 4.1 mmol/L (3.5-5.1); Sodium Level 139 mmol/L (136-145)
--- NOTE | 2018-10-26 23:28 | ED.VISSUMM ---
- ER Visit Summary Date of Service: 10/26/18 Chief Complaint: Right elbow pain History of Present Illness: The patient is a 43 M who presents with pain and redness to his right elbow that began this morning. Patient states he woke up with some redness and swelling to his right elbow. Patient thinks that something bit him in the middle the night. Patient describes his pain is aching. Patient states the pain is over the posterior aspect of the right elbow. Patient states pain is worse with palpation and complete flexion. Patient denies any paresthesias or weakness. Patient denies any fevers or chills. Patient denies any nausea or vomiting. Physical Examination: Vital signs are stable. Patient is afebrile. Patient is in no acute distress. Musculoskeletal exam reveals an effusion over the right olecranon bursa. There is slight erythema. There is no warmth. There is good range of motion of the right elbow. There is no bony crepitance or step-off noted. Radial pulses are equal bilaterally. Sensation was intact to light touch bilaterally in the radial, median, and ulnar areas. Test Results: CBC was normal. Basic metabolic profile was normal. X-rays of the right elbow were obtained. There is no acute bony abnormality. There is some soft tissue swelling. Emergency Department Course and Treatment: With normal labs and lack of a fever as well as good range of motion of the right elbow, I do not feel this is a septic bursitis. Patient was instructed to use ice to the area. Patient was given an Reese wrap. Patient was instructed to follow-up with his primary care physician in 5 to 7 days. Patient was instructed to take Tylenol or ibuprofen as needed for pain. Patient understood and was agreeable with the plan. All questions were answered. Disposition: Discharge home Impression: Right elbow olecranon bursitis This note was generated with [employer] dictation software. It may contain incorrect words, spelling, and punctuation that were not noted in review of the chart prior to signing ED Disposition - Plan for ED Patient: Disposition: Home or Assisted Living Diagnosis: Olecranon bursitis, right elbow Instructions: Bursitis, Elbow (Olecranon) Referrals: Alejandro Lincoln MD [Primary Care Provider] - 5-7 Days
[2018-10-26 23:50] VITALS: BP 134/92; PULSE 89; RESP 16; O2SAT 98
== END 2018-10-26 23:51 | disposition home or self-care (01) ==
PROVIDERS: Emergency Provider Emergency Medicine; Family Provider Internal Medicine; PCP Internal Medicine
DX: M70.21 Olecranon bursitis, right elbow (principal); Y93.9 Activity, unspecified; I73.9 Peripheral vascular disease, unspecified; G62.9 Polyneuropathy, unspecified; Z86.718 Personal history of other venous thrombosis and embolism; Z79.01 Long term (current) use of anticoagulants; Z79.82 Long term (current) use of aspirin; Z79.899 Other long term (current) drug therapy; Z72.0 Tobacco use
CPT/HCPCS: 73080; 80048; 85025; 99283; A4216

== ENCOUNTER 2018-10-30 10:22 | Outpatient (RCR) | payer MEDICAID, SELFPAY ==
[2018-10-30 12:36] LABS: International Normalized Ratio 2.2; Prothrombin Time (Protime)PT. 24.4 SECONDS (11.7-14.9)
== END 2018-11-14 23:59 ==
LOC: BIMLAB 10:22
PROVIDERS: PCP Internal Medicine; Visit Provider Internal Medicine
DX: Z79.01 Long term (current) use of anticoagulants (principal)
CPT/HCPCS: 36415; 85610

== ENCOUNTER 2018-12-02 10:14 | Outpatient (RCR) | payer MEDICAID, SELFPAY ==
[2018-12-02 09:31] VITALS: BMI 25.9
[2018-12-02 12:28] LABS: International Normalized Ratio 1.7; Prothrombin Time (Protime)PT. 19.7 SECONDS (11.7-14.9)
== END 2018-12-14 23:59 ==
LOC: BIMLAB 10:14
PROVIDERS: PCP Internal Medicine; Visit Provider Internal Medicine
DX: Z79.01 Long term (current) use of anticoagulants (principal)
CPT/HCPCS: 36415; 85610

== ENCOUNTER 2018-12-15 09:47 | Outpatient (RCR) | payer MEDICAID, SELFPAY ==
[2018-12-15 12:26] LABS: International Normalized Ratio 1.1; Prothrombin Time (Protime)PT. 13.6 SECONDS (11.7-14.9)
[2018-12-17 03:06] LABS: Dilute Prothrombin Time (dPT) 48.9 sec (0.0-55.0); Dilute Russell Viper Venom 46.6 sec (0.0-47.0); PTT-LA 38.5 sec (0.0-51.9); Thrombin Time 17.2 sec (0.0-23.0); dPT Confirm Ratio 1.18 Ratio (0.00-1.40)
[2018-12-18 11:11] LABS: Interpretation Comment: (.)
== END 2019-01-14 23:59 ==
LOC: BIMLAB 09:47
PROVIDERS: PCP Internal Medicine; Visit Provider Internal Medicine
DX: Z79.01 Long term (current) use of anticoagulants (principal)
CPT/HCPCS: 36415; 85610

== ENCOUNTER 2019-01-07 08:42 | Outpatient (RCR) | payer MEDICAID, SELFPAY ==
[2018-08-03 09:29] VITALS: BMI 27.6
[2018-12-17 15:10] VITALS: BMI 25.9
[2019-01-07 11:00] LABS: International Normalized Ratio 1.1; Prothrombin Time (Protime)PT. 14.1 SECONDS (11.7-14.9)
== END 2019-01-14 23:59 ==
LOC: BIMLAB 08:42
PROVIDERS: PCP Internal Medicine; Referring Provider Nurse Practitioner Family; Visit Provider Nurse Practitioner Family
DX: Z79.01 Long term (current) use of anticoagulants (principal)
CPT/HCPCS: 36415; 85610

== ENCOUNTER 2019-01-20 09:01 | Outpatient (RCR) | payer MEDICAID, SELFPAY ==
[2019-01-07 08:59] VITALS: BMI 25.9
[2019-01-15 12:50] LABS: International Normalized Ratio 1.6
[2019-01-20 12:42] LABS: International Normalized Ratio 2.3
== END 2019-02-13 23:59 ==
LOC: BIMLAB 09:01
PROVIDERS: PCP Internal Medicine; Referring Provider Nurse Practitioner Family; Visit Provider Nurse Practitioner Family
DX: Z79.01 Long term (current) use of anticoagulants (principal)
CPT/HCPCS: 36415; 85610

== ENCOUNTER → 2019-02-05 10:45 | Outpatient (CLI) | payer MEDICAID, SELFPAY ==
[2019-01-27 11:05] VITALS: BMI 25.9
--- NOTE | 2019-02-05 10:47 | EKG12_ITS ---
Test Reason : HYPERTENSION Blood Pressure : / mmHG Vent. Rate : 091 BPM Atrial Rate : 091 BPM P-R Int : 170 ms QRS Dur : 086 ms QT Int : 346 ms P-R-T Axes : 052 -15 050 degrees QTc Int : 425 ms Normal sinus rhythm Possible Left atrial enlargement Borderline ECG Confirmed by GREY MOODY, LOKESH ([id number]), story editor DEEPALI GEORGES ([id number]) on 02/08/2019 9:51:28 AM Referred By: Alejandro Lincoln Confirmed By:LOKESH EDMONDS MD
--- NOTE | 2019-02-05 10:47 | US_ITS ---
HISTORY: RT POST ELBOW MASS/SWELLING ADDITIONAL HISTORY: None provided. COMPARISON: Right Elbow radiographs 10/26/2018 TECHNIQUE: High-resolution grayscale and color Doppler sonography of the region of clinical concern involving the right posterior elbow. Number of images including paperwork: 25 FINDINGS: A fluid collection is seen in the soft tissues dorsal to the left elbow measuring 4.4 x 4.7 x 1.1 cm with some surrounding vascularity and some low level internal echoes. US/Ext Non Vasc Limited/Soft Tiss IMPRESSION: Right dorsal elbow fluid collection most likely olecranon bursitis. Correlate for clinical evidence of infection. at 0757 Reported and signed by: Beverley Valiente MD Electronically Signed: Beverley Valiente MD at 7:56 EST Tel , Service support ,
== END ==
PROVIDERS: Family Provider Internal Medicine; PCP Internal Medicine; Referring Provider Internal Medicine; Visit Provider Internal Medicine
DX: I10 Essential (primary) hypertension (principal)
CPT/HCPCS: 76882; 93005

== ENCOUNTER → 2019-02-16 10:34 | Outpatient (CLI) | payer MEDICAID, SELFPAY ==
[2019-01-27 11:05] VITALS: BMI 25.9
[2019-02-16 12:37] LABS: International Normalized Ratio 3.2; Prothrombin Time (Protime)PT. 33.3 SECONDS (11.7-14.9)
== END ==
PROVIDERS: Family Provider Internal Medicine; PCP Internal Medicine; Visit Provider Internal Medicine
DX: Z79.01 Long term (current) use of anticoagulants (principal)
CPT/HCPCS: 36415; 85610

== ENCOUNTER 2019-03-04 10:24 | Outpatient (RCR) | payer MEDICAID, SELFPAY ==
[2019-01-27 11:05] VITALS: BMI 25.9
[2019-02-26 12:41] LABS: Valproic Acid (Depakene) Level 54 ug/mL (50-100)
[2019-02-26 12:42] LABS: Absolute Lymphocyte Count 1.41 X10^3/uL (0.83-4.51); Absolute Neutrophil Count 2.3 X10^3/uL (2.0-7.7); Basophil# 0.05 X10^3/uL; Basophil% 1.1 % (0-1); Eosinophil# 0.22 X10^3/uL; Eosinophils% 4.7 % (0-5); Hematocrit 50.3 % (40-54); Hemoglobin 17.1 g/dL (13.0-16.5); Lymphocyte # 1.41 X10^3/ul (4.0); Lymphocyte % 30.1 % (19-41); Mean Corpuscular Volume 91.3 fL (80-94); Mean Platelet Vol. 11.5 fl (6.2-12.0); Monocyte# 0.66 X10^3/uL; Monocyte% 14.1 % (0-10); NRBC Flagged by Analyzer 0 % (0-5); Neutrophil % 48.9 % (47-70); Platelet Count 166 K/mm3 (150-450); RBC Distribution Width CV 13.5 % (11.6-14.6); RBC Distribution Width SD 45.5 fl (35.1-43.9); Red Blood Count 5.51 M/mm3 (4.6-6.2); White Blood Count 4.7 K/mm3 (4.4-11.0)
[2019-02-26 12:57] LABS: International Normalized Ratio 2.6; Prothrombin Time (Protime)PT. 27.9 SECONDS (11.7-14.9)
[2019-02-26 13:07] LABS: ALB/GLOB Ratio 0.9 RATIO (0.9-2.4); AST(SGOT) 12 U/L (15-37); Alanine Aminotransfer ALT/SGPT 24 U/L (16-61); Albumin, Serum 3.3 g/dL (3.2-5.0); Alkaline Phosphatase 99 U/L (45-117); Anion Gap 6 (5-15); BUN 7 mg/dL (7-18); Calcium,Total 8.4 mg/dL (8.5-10.1); Chloride 108 mmol/L (98-107); Creatinine, Serum 0.78 mg/dL (0.70-1.30); EST Glomerular Filtration Rate 115 mL/min (>60); Est Glom Filt Rate - Afr Amer 139 mL/min (>60); Globulin 3.5 g/dL (2.2-4.2); Glucose 101 mg/dL (74-106); Potassium 4.4 mmol/L (3.5-5.1); Protein, Total 6.8 g/dL (6.4-8.2); Sodium Level 139 mmol/L (136-145)
[2019-03-04 12:32] LABS: International Normalized Ratio 2.3; Prothrombin Time (Protime)PT. 24.9 SECONDS (11.7-14.9)
== END 2019-03-16 23:59 ==
LOC: BIMLAB 10:24
PROVIDERS: Registered Nurse; Family Provider Internal Medicine; PCP Internal Medicine; Referring Provider Nurse Practitioner Family; Visit Provider Nurse Practitioner Family
DX: F31.9 Bipolar disorder, unspecified (principal); Z79.899 Other long term (current) drug therapy; Z79.01 Long term (current) use of anticoagulants
CPT/HCPCS: 36415; 80053; 80164; 85025; 85610

== ENCOUNTER 2019-03-14 19:44 | Emergency (ER) | payer MEDICAID, SELFPAY ==
[2019-01-27 11:05] VITALS: BMI 25.9
[2019-03-14 19:45] VITALS: BP 129/81; PULSE 110; RESP 16; TEMP 36.9; O2SAT 94; BMI 29.2
--- NOTE | 2019-03-14 20:24 | RAD_ITS ---
HISTORY:CHEST COLD, STATES WHILE COUGHING THIS MORNING GOT A SHARP PAIN ON LEFT RIB/ FLANK AREACOPD, HTN CHEST COLD, STATES WHILE COUGHING THIS MORNING GOT A SHARP PAIN ON LEFT RIB/ FLANK AREACOPD, HTN EXAMINATION/TECHNIQUE: XR Chest 2 Views: COMPARISON: July 22, 2017 FINDINGS: LINES/DEVICES: None. LUNGS: No consolidation, edema or effusion. No pneumothorax. MEDIASTINUM AND CARDIOVASCULAR STRUCTURES: Cardiac silhouette not enlarged. Central airways and mediastinal contour are unremarkable. BONES AND SOFT TISSUES: [facility] RAD/Chest PA and Lateral IMPRESSION: No radiographic evidence of acute cardiopulmonary disease. at 2142 Reported and signed by: Diane Turner DO Electronically Signed: Diane Turner DO at 21:41 EST Tel , Service support ,
--- NOTE | 2019-03-14 20:26 | ED.VISSUMM ---
- ER Visit Summary Date of Service: 03/14/19 Chief Complaint: Left lower chest pain History of Present Illness: The patient is a 43 M who presents with left lower chest pain that began today while coughing. Patient states the pain is sharp. Patient states pain is worse with coughing. Patient states the pain improves when he pushes on his left lower chest. Patient admits to some recent upper respiratory congestion, sore throat, and rhinorrhea. Patient denies any sputum production. Patient denies any fevers or chills. Physical Examination: Vital signs are stable. Patient is afebrile. Patient is in no acute distress. Oral mucosa is pink and moist. Lungs are diminished in the bases bilaterally. There is good respiratory effort noted. Abdomen is soft. Bowel sounds are normal. There is no tenderness. Cranial nerves II through XII are intact. There are no focal motor or sensory deficits noted. Test Results: PA and lateral chest x-ray was obtained. There is no acute cardiopulmonary process. This was interpreted by the radiologist and myself. Emergency Department Course and Treatment: Smoking cessation was discussed. Patient was instructed to use Tylenol or Motrin as needed for pain. Patient was instructed to take 10-15 deep breaths every hour while awake to prevent pneumonia. Patient understood and was agreeable with the plan. All questions were answered. Disposition: Discharge home Impression: Chest wall pain This note was generated with [employer] dictation software. It may contain incorrect words, spelling, and punctuation that were not noted in review of the chart prior to signing ED Disposition - Plan for ED Patient: Disposition: Home or Assisted Living Diagnosis: Chest wall pain Instructions: Chest Wall Strain Referrals: Alejandro Lincoln MD [Primary Care Provider] - 5-7 Days
[2019-03-14 22:08] VITALS: BP 116/74; PULSE 89; RESP 16; O2SAT 94
[2019-03-14 22:29] VITALS: RESP 16
== END 2019-03-14 22:30 | disposition home or self-care (01) ==
PROVIDERS: Emergency Provider Emergency Medicine; Family Provider Internal Medicine; PCP Internal Medicine
DX: S29.011A Strain of muscle and tendon of front wall of thorax, initial encounter (principal); R09.81 Nasal congestion; J34.89 Other specified disorders of nose and nasal sinuses; J02.9 Acute pharyngitis, unspecified; R05 Cough; X58.XXXA Exposure to other specified factors, initial encounter; Y93.9 Activity, unspecified; Y92.9 Unspecified place or not applicable; I10 Essential (primary) hypertension; E78.00 Pure hypercholesterolemia, unspecified; Z79.82 Long term (current) use of aspirin; Z79.01 Long term (current) use of anticoagulants; Z79.899 Other long term (current) drug therapy; F17.200 Nicotine dependence, unspecified, uncomplicated
CPT/HCPCS: 71046; 99282

== ENCOUNTER 2019-04-09 09:12 | Outpatient (RCR) | payer MEDICAID, SELFPAY ==
[2019-03-31 13:18] VITALS: BMI 29.2
[2019-04-09 12:45] LABS: International Normalized Ratio 2.5
== END 2019-04-16 23:59 ==
LOC: BIMLAB 09:12
PROVIDERS: Family Provider Internal Medicine; PCP Internal Medicine; Referring Provider Nurse Practitioner Family; Visit Provider Nurse Practitioner Family
DX: Z79.01 Long term (current) use of anticoagulants (principal)
CPT/HCPCS: 36415; 85610

== ENCOUNTER 2019-05-13 10:00 | Outpatient (RCR) | payer MEDICAID, SELFPAY ==
[2019-03-31 13:18] VITALS: BMI 29.2
[2019-04-27 16:11] VITALS: BMI 29.2
--- NOTE | 2019-04-30 08:37 | RAD_ITS ---
STUDY: X-RAY - LUMBAR SPINE REASON FOR EXAM: Male, 43 years old. chronic low back pain TECHNIQUE: 5 view(s) of the lumbar spine were obtained. COMPARISON: Prior study of June 16, 2018 FINDINGS: There is straightening of the normal lumbar lordosis. There is no substantial scoliosis. There is a normal alignment of the vertebrae. There is mild diffuse endplate spondylosis. Normal disc space heights. There is no demonstrated spondylolysis of the pars interarticulares. There is a left iliac artery stent. RAD/L/S Spine Min 4 Views IMPRESSION: Straightening of the normal lordotic curvature. This may be positional in nature or due to muscular spasm. Mild diffuse endplate spondylosis. Findings appears similar to the previous study. Electronically Signed: Benjamín Wallace MD at 18:29 EST , Service support ,
[2019-04-30 10:21] LABS: Valproic Acid (Depakene) Level 75 ug/mL (50-100)
[2019-04-30 10:22] LABS: ALB/GLOB Ratio 0.9 RATIO (0.9-2.4); AST(SGOT) 6 U/L (15-37); Alanine Aminotransfer ALT/SGPT 22 U/L (16-61); Albumin, Serum 3.4 g/dL (3.2-5.0); Alkaline Phosphatase 95 U/L (45-117); Anion Gap 5 (5-15); BUN 10 mg/dL (7-18); BUN/Creat Ratio 12.8 RATIO (10-20); Calcium,Total 8.7 mg/dL (8.5-10.1); Chloride 108 mmol/L (98-107); Creatinine, Serum 0.78 mg/dL (0.70-1.30); EST Glomerular Filtration Rate 113 mL/min (>60); Est Glom Filt Rate - Afr Amer 137 mL/min (>60); Globulin 3.8 g/dL (2.2-4.2); Glucose 91 mg/dL (74-106); Potassium 3.6 mmol/L (3.5-5.1); Protein, Total 7.2 g/dL (6.4-8.2); Sodium Level 141 mmol/L (136-145)
[2019-05-07 13:14] LABS: International Normalized Ratio 3.3; Prothrombin Time (Protime)PT. 33.9 SECONDS (11.7-14.9)
[2019-05-13 12:46] LABS: International Normalized Ratio 2.6; Prothrombin Time (Protime)PT. 28.2 SECONDS (11.7-14.9)
== END 2019-05-15 23:59 ==
LOC: BIMLAB 10:00
PROVIDERS: Family Provider Internal Medicine; PCP Internal Medicine; Referring Provider Nurse Practitioner Family; Visit Provider Nurse Practitioner Family
DX: Z79.01 Long term (current) use of anticoagulants (principal)
CPT/HCPCS: 36415; 72110; 80053; 80164; 85610

== ENCOUNTER 2019-05-19 21:11 | Emergency (ER) | payer MEDICAID, SELFPAY ==
[2019-05-13 09:39] VITALS: BMI 29.2
[2019-05-19 21:12] VITALS: BP 144/89; PULSE 100; RESP 17; TEMP 36.2; O2SAT 94; BMI 31.6
[2019-05-19 21:15] VITALS: BP 144/89; PULSE 100; RESP 17; TEMP 36.2; O2SAT 94
--- NOTE | 2019-05-19 21:34 | RAD_ITS ---
STUDY: X-RAY CHEST REASON FOR EXAM: Male, 43 years old. PT WITH COUGH X 1 MONTH, RIGHT RIB PAIN TONIGHT. HX COPD TECHNIQUE: PA and lateral COMPARISON: March 14, 2019 FINDINGS: The lungs are clear and expanded. There is no demonstrated pleural abnormality. Normal size heart. Normal mediastinum and michael. Normal visualized pulmonary arteries. Normal visualized aortic arch and descending thoracic aorta. Normal visualized thoracic spine. Normal visualized ribs, clavicles, and shoulders. Postop changes status post cervical fusion There is no demonstrated abnormality of the visualized soft tissue structures of the upper abdomen. No significant change since prior exam RAD/Chest PA and Lateral IMPRESSION: No acute cardiopulmonary pathology. Electronically Signed: Bartolo Callejas MD at 21:59 EST , Service support ,
[2019-05-19 21:45] VITALS: PULSE 105; RESP 16
[2019-05-19] MEDS: Ipratropium/Albuterol Sulfate 3 ML AMPUL.NEB INHALATION (21:45)
--- NOTE | 2019-05-19 22:44 | ED.VISSUMM ---
- ER Visit Summary Date of Service: 05/19/19 Chief Complaint: Cough History of Present Illness: The patient is a 43 M who sees . He reports he has a cough that began 1 month ago. Is productive green/yellow sputum. States that he was placed on amoxicillin and prednisone. He has not gotten any better. He does smoke a pack per day. Patient reports that 2 hours ago he was coughing and had the abrupt onset of a sharp pain in the right side of his chest. States that this is worsened by coughing or laying down. He denies any fever or chills. He does report he is mildly short of breath. Physical Examination: Vitals: Stable. Afebrile. General: Well-nourished and well-developed. Head: Normocephalic atraumatic. Neck: Supple, no lymphadenopathy. No JVD. Nontender. Cardiovascular: Regular rate and rhythm. No murmurs. Respiratory: No respiratory distress. Mild wheezing bilaterally with good air movement. Abdominal: Soft, nontender, nondistended, normal bowel sounds. No guarding, rebound, or peritoneal signs. Back: Nontender. Extremities: Nontender, no edema. Skin: Normal color, no rash. Neurologic: Alert and oriented ?3. Cranial nerves II through XII are intact. Normal strength and sensation. Psych: Normal affect. Test Results: Clinical Impression(s) from Imaging Studies Chest X-Ray 05/19/19 21:34 IMPRESSION: No acute cardiopulmonary pathology. Electronically Signed: Bartolo Callejas MD at 21:59 EST , Service support , Emergency Department Course and Treatment: Patient is given a dose of doxycycline and prednisone p.o. He is resting comfortably. Treatment Plan: Patient is instructed to hold his Coumadin for 2 days because he is being placed on doxycycline. Continue to use his albuterol MDI and steroid MDI. Follow-up with his primary care physician in 2 days to get his INR checked and for further evaluation to make sure that he is improving. Return to the emergency department for any worsening symptoms. Disposition: To home in improved and stable condition. Impression: 1. COPD exacerbation. 3. Coumadin coagulopathy. This note was generated with Dragon dictation software. It may contain incorrect words, spelling, and punctuation that were not noted in review of the chart prior to signing ED Disposition - Plan for ED Patient: Disposition: Home or Assisted Living Instructions: Copd Flare Prescriptions: Prednisone [Deltasone] 40 mg PO DAILY #10 tab Prescription Printed Doxycycline 100 mg PO BID #14 cap Prescription Printed Referrals: Alejandro Lincoln MD [Primary Care Provider] - 3-5 Days if not improving
[2019-05-19] MEDS: predniSONE 20 MG Tablet 40 MG PO (22:51)
[2019-05-19] MEDS: Doxycycline 100 MG CAPSULE PO (22:51)
[2019-05-19 22:54] VITALS: BP 140/75; PULSE 100; RESP 20; TEMP 37.2; O2SAT 97
== END 2019-05-19 22:55 | disposition home or self-care (01) ==
PROVIDERS: Emergency Provider Emergency Medicine; PCP Internal Medicine
DX: J44.1 Chronic obstructive pulmonary disease with (acute) exacerbation (principal); R79.1 Abnormal coagulation profile; I10 Essential (primary) hypertension; Z79.899 Other long term (current) drug therapy; Z79.01 Long term (current) use of anticoagulants; Z79.82 Long term (current) use of aspirin; Z72.0 Tobacco use
CPT/HCPCS: 71046; 94640; 99283

== ENCOUNTER 2019-06-04 13:14 | Outpatient (RCR) | payer MEDICAID, SELFPAY ==
[2019-05-13 09:39] VITALS: BMI 29.2
[2019-05-21 12:34] LABS: International Normalized Ratio 2.2; Prothrombin Time (Protime)PT. 23.9 SECONDS (11.7-14.9)
[2019-06-04 16:55] LABS: International Normalized Ratio 2.8; Prothrombin Time (Protime)PT. 29.8 SECONDS (11.7-14.9)
== END 2019-06-15 23:59 ==
LOC: BIMLAB 13:14
PROVIDERS: Family Provider Internal Medicine; PCP Internal Medicine; Referring Provider Nurse Practitioner Family; Visit Provider Nurse Practitioner Family
DX: Z79.01 Long term (current) use of anticoagulants (principal)
CPT/HCPCS: 36415; 85610

== ENCOUNTER 2019-06-25 11:46 | Outpatient (RCR) | payer MEDICAID, SELFPAY ==
[2019-06-25 12:38] LABS: Prothrombin Time (Protime)PT. 30.4 SECONDS (11.7-14.9)
== END 2019-07-15 23:59 ==
LOC: BIMLAB 11:46
PROVIDERS: Family Provider Internal Medicine; PCP Internal Medicine; Referring Provider Nurse Practitioner Family; Visit Provider Nurse Practitioner Family
DX: Z79.01 Long term (current) use of anticoagulants (principal)
CPT/HCPCS: 85610

== ENCOUNTER → 2019-07-22 10:31 | Outpatient (CLI) | payer MEDICAID, SELFPAY ==
[2019-06-30 14:00] VITALS: BMI 31.6
[2019-07-22 15:05] LABS: International Normalized Ratio 1.1; Prothrombin Time (Protime)PT. 13.3 SECONDS (11.7-14.9)
== END ==
PROVIDERS: PCP Internal Medicine; Referring Provider Internal Medicine; Visit Provider Internal Medicine
DX: I82.409 Acute embolism and thrombosis of unspecified deep veins of unspecified lower extremity (principal)
CPT/HCPCS: 85610

== ENCOUNTER → 2019-07-30 10:41 | Outpatient (CLI) | payer MEDICAID, SELFPAY ==
[2019-06-30 14:00] VITALS: BMI 31.6
[2019-07-30 11:37] LABS: International Normalized Ratio 1.7; Prothrombin Time (Protime)PT. 19.9 SECONDS (11.7-14.9)
== END ==
PROVIDERS: PCP Internal Medicine; Referring Provider Nurse Practitioner Family; Visit Provider Nurse Practitioner Family
DX: Z79.01 Long term (current) use of anticoagulants (principal)
CPT/HCPCS: 85610

== ENCOUNTER 2019-08-12 12:12 | Outpatient (RCR) | payer MEDICAID, SELFPAY ==
[2019-06-30 14:00] VITALS: BMI 31.6
[2019-08-12 15:25] LABS: Prothrombin Time (Protime)PT. 37.6 SECONDS (11.7-14.9)
[2019-08-12 15:39] LABS: International Normalized Ratio 3.8
== END 2019-08-15 23:59 ==
LOC: BIMLAB 12:12
PROVIDERS: Family Provider Internal Medicine; PCP Internal Medicine; Referring Provider Nurse Practitioner Family; Visit Provider Nurse Practitioner Family
DX: Z79.01 Long term (current) use of anticoagulants (principal)
CPT/HCPCS: 36415; 85610

== ENCOUNTER → 2019-08-16 11:18 | Outpatient (CLI) | payer MEDICAID, SELFPAY ==
[2019-06-30 14:00] VITALS: BMI 31.6
[2019-08-16 12:58] LABS: International Normalized Ratio 2.6; Prothrombin Time (Protime)PT. 27.3 SECONDS (11.7-14.9)
== END ==
PROVIDERS: PCP Internal Medicine; Visit Provider Internal Medicine
DX: Z79.01 Long term (current) use of anticoagulants (principal)
CPT/HCPCS: 36415; 85610

== ENCOUNTER 2019-09-02 14:03 | Outpatient (RCR) | payer MEDICAID, SELFPAY ==
[2019-06-30 14:00] VITALS: BMI 31.6
[2019-09-02 13:31] VITALS: BMI 31.6
[2019-09-02 15:37] LABS: Prothrombin Time (Protime)PT. 34.6 SECONDS (11.7-14.9)
[2019-09-02 15:51] LABS: International Normalized Ratio 3.5
[2019-09-02 16:00] LABS: T4 Free Direct 1.08 ng/dL (0.76-1.46); Thyroid Stim Hormone (TSH) 0.89 uIU/mL (0.358-3.74)
[2019-09-06 15:54] LABS: International Normalized Ratio 2.3; Prothrombin Time (Protime)PT. 24.4 SECONDS (11.7-14.9)
== END 2019-09-14 23:59 ==
LOC: BIMLAB 14:03
PROVIDERS: Family Provider Internal Medicine; PCP Internal Medicine; Referring Provider Nurse Practitioner Family; Visit Provider Nurse Practitioner Family
DX: Z79.01 Long term (current) use of anticoagulants (principal)
CPT/HCPCS: 36415; 84439; 84443; 85610

== ENCOUNTER → 2019-10-07 10:50 | Outpatient (CLI) | payer MEDICAID, SELFPAY ==
--- NOTE | 2019-10-07 10:56 | MRI_ITS ---
STUDY: MRI LUMBAR SPINE WITHOUT CONTRAST REASON FOR EXAM: Male, 44 years old. LOW BACK PAIN INTO HIPS, L and gt;R, NKI TECHNIQUE: Standardized fat and water weighted pulse sequences were obtained in the sagittal and axial planes. COMPARISON: None FINDINGS: There is straightening of the normal lumbar lordosis. There is no substantial scoliosis. Normal conus medullaris that terminates at the L1 L1-2: There is mild disc space narrowing and endplate spondylosis. There is no significant disc herniation, central canal or foraminal stenosis. L2-3: There is minimal disc space narrowing and endplate spondylosis. There is no significant disc herniation, central canal or foraminal stenosis. L3-4: There is mild disc space narrowing and endplates spondylosis. There is mild disc bulge with mild central canal stenosis. There is mild right and mild left foraminal stenosis. L4-5: There is minimal disc space narrowing and endplate spondylosis. . There is minimal disc bulge and mild facet arthropathy without significant central canal or foraminal stenosis. L5-S1: There is moderate disc space narrowing and endplates spondylosis. There is mild disc bulge and facet arthropathy without significant central canal stenosis. There is moderate right and moderate left foraminal stenosis. There is right laminectomy Normal visualized sacral ala. MRI/Spine Lumbar (Routine) IMPRESSION: L5/S1: Moderate bilateral foraminal stenosis. Electronically Signed: Tianna Tesfaye MD at 9:30 EDT Tel , Service support ,
== END ==
PROVIDERS: PCP Internal Medicine; Referring Provider Anesthesiology Pain Medicine; Visit Provider Anesthesiology Pain Medicine
DX: M51.37 Other intervertebral disc degeneration, lumbosacral region (principal); M54.17 Radiculopathy, lumbosacral region
CPT/HCPCS: 72148

== ENCOUNTER 2019-10-27 08:40 | Outpatient (RCR) | payer MEDICAID, SELFPAY ==
[2019-10-19 09:49] VITALS: BMI 31.6
[2019-10-26 12:26] LABS: Absolute Lymphocyte Count 2.12 X10^3/uL (0.83-4.51); Absolute Neutrophil Count 3.2 X10^3/uL (2.0-7.7); Basophil# 0.07 X10^3/uL; Basophil% 1.1 % (0-1); Lymphocyte # 2.12 X10^3/ul (4.0); Lymphocyte % 32.3 % (19-41); Mean Corpuscular Hgb 30.7 pg (27.0-32.0); Mean Platelet Vol. 11.6 fl (6.2-12.0); Monocyte# 0.96 X10^3/uL; Monocyte% 14.6 % (0-10); NRBC Flagged by Analyzer 0 % (0-5); Neutrophil # 3.16 X10^3/uL (2.7-7.7); Neutrophil % 48.1 % (47-70); Platelet Count 191 K/mm3 (150-450); RBC Distribution Width CV 13.7 % (11.6-14.6); RBC Distribution Width SD 46.7 fl (35.1-43.9); Red Blood Count 6.03 M/mm3 (4.6-6.2); White Blood Count 6.6 K/mm3 (4.4-11.0)
[2019-10-26 13:09] LABS: ALB/GLOB Ratio 0.9 RATIO (0.9-2.4); AST(SGOT) 26 U/L (15-37); Alanine Aminotransfer ALT/SGPT 52 U/L (16-61); Albumin, Serum 3.4 g/dL (3.2-5.0); Alkaline Phosphatase 93 U/L (45-117); Anion Gap 7 (5-15); BUN 6 mg/dL (7-18); BUN/Creat Ratio 7.2 RATIO (10-20); Calcium,Total 8.5 mg/dL (8.5-10.1); Chloride 105 mmol/L (98-107); Cholesterol 253 mg/dL (200); Creatinine, Serum 0.84 mg/dL (0.70-1.30); EST Glomerular Filtration Rate 105 mL/min (>60); Est Glom Filt Rate - Afr Amer 127 mL/min (>60); Globulin 3.9 g/dL (2.2-4.2); Glucose 96 mg/dL (74-106); High Density Lipoprotein 26 mg/dL; Potassium 3.5 mmol/L (3.5-5.1); Protein, Total 7.3 g/dL (6.4-8.2); Sodium Level 137 mmol/L (136-145); Thyroid Stim Hormone (TSH) 1.08 uIU/mL (0.358-3.74); Triglycerides 405 mg/dL
[2019-10-26 13:22] LABS: Hematocrit 56.1 % (40-54)
[2019-10-26 13:26] LABS: Hemoglobin 18.5 g/dL (13.0-16.5)
[2019-10-27 12:28] LABS: Hematocrit 54.8 % (40-54); Hemoglobin 18.2 g/dL (13.0-16.5); Mean Corp Hgb Conc 33.2 g/dL (32-36); Mean Corpuscular Hgb 30.6 pg (27.0-32.0); Mean Corpuscular Volume 92.3 fL (80-94); Mean Platelet Vol. 11.8 fl (6.2-12.0); Platelet Count 184 K/mm3 (150-450); RBC Distribution Width CV 13.6 % (11.6-14.6); RBC Distribution Width SD 46.5 fl (35.1-43.9); Red Blood Count 5.94 M/mm3 (4.6-6.2); White Blood Count 6.1 K/mm3 (4.4-11.0)
[2019-10-27 12:39] LABS: Scan Indicated on CBC? Y/N YES- FLAGS NOTED
[2019-10-27 12:47] LABS: Prothrombin Time (Protime)PT. 30.7 SECONDS (11.7-14.9)
[2019-10-27 13:16] LABS: Pathologist Review Reviewed
[2019-10-28 12:02] LABS: Pathologist Review Reviewed
[2019-10-29 09:08] LABS: Testosterone, Free 10.82 ng/dL (5.00-21.00)
[2019-10-29 11:45] LABS: Testosterone, % Free 2.05 % (1.50-4.20); Testosterone, Total 528 ng/dL (264-916)
== END 2019-11-15 23:59 ==
LOC: BIMLAB 08:40
PROVIDERS: Family Provider Internal Medicine; PCP Internal Medicine; Referring Provider Nurse Practitioner Family; Visit Provider Nurse Practitioner Family
DX: Z79.01 Long term (current) use of anticoagulants (principal)
CPT/HCPCS: 36415; 80053; 80061; 84402; 84403; 84443; 85025; 85027; 85610

== ENCOUNTER 2019-11-01 09:28 | Outpatient (RCR) | payer MEDICAID, SELFPAY ==
[2019-10-19 09:49] VITALS: BMI 31.6
[2019-11-01 12:21] LABS: International Normalized Ratio 1.2; Prothrombin Time (Protime)PT. 14.9 SECONDS (11.7-14.9)
== END 2019-11-15 23:59 ==
LOC: BIMLAB 09:28
PROVIDERS: PCP Internal Medicine; Referring Provider Anesthesiology Pain Medicine; Visit Provider Nurse Practitioner Family
DX: Z79.01 Long term (current) use of anticoagulants (principal)
CPT/HCPCS: 36415; 85610

== ENCOUNTER 2019-11-15 13:53 | Outpatient (RCR) | payer MEDICAID, SELFPAY ==
[2019-11-05 14:36] VITALS: BMI 31.6
[2019-11-15 15:49] LABS: Prothrombin Time (Protime)PT. 38.8 SECONDS (11.7-14.9)
== END 2019-11-15 23:59 ==
LOC: BIMLAB 13:53
PROVIDERS: PCP Internal Medicine; Visit Provider Internal Medicine
DX: Z79.01 Long term (current) use of anticoagulants (principal)
CPT/HCPCS: 36415; 85610

== ENCOUNTER → 2019-11-16 08:59 | Outpatient (CLI) | payer MEDICAID, SELFPAY ==
[2019-11-05 14:36] VITALS: BMI 31.6
--- NOTE | 2019-11-16 09:02 | RAD_ITS ---
STUDY: X-RAY - PELVIS AND RIGHT HIP REASON FOR EXAM: Male, 44 years old. PAIN, NO INJURY, PT HAS LOW BACK PAIN TECHNIQUE: 3 views of the pelvis and hip. COMPARISON: None. FINDINGS: There is a non-specific bowel gas pattern. Normal visualized soft tissue structures. There is a left iliac vascular stent. Normal bilateral iliac wings, sacroiliac joints and visualized sacrum. Normal bilateral superior and inferior pubic rami. Normal pubic symphysis. Normal bilateral ischial tuberosities. Normal visualized femoral head. Normal acetabulum. Normal hip joint. RAD/HIP, UNI W/ Pelvis 2-3 Views IMPRESSION: Normal x-ray examination of the pelvis and hip. Electronically Signed: Von Junior DO at 17:52 EDT Tel [phone], Service support ,
== END ==
PROVIDERS: PCP Internal Medicine; Referring Provider Nurse Practitioner Family; Visit Provider Nurse Practitioner Family
DX: M25.551 Pain in right hip (principal)
CPT/HCPCS: 73502

== ENCOUNTER → 2019-11-23 14:58 | Outpatient (CLI) | payer MEDICAID, SELFPAY ==
[2019-11-05 14:36] VITALS: BMI 31.6
[2019-11-23 17:08] LABS: International Normalized Ratio 2.2; Prothrombin Time (Protime)PT. 24.1 SECONDS (11.7-14.9)
== END ==
PROVIDERS: PCP Internal Medicine; Visit Provider Internal Medicine
DX: Z79.01 Long term (current) use of anticoagulants (principal)
CPT/HCPCS: 36415; 85610

== ENCOUNTER 2019-11-28 21:14 | Emergency (ER) | payer MEDICAID, SELFPAY ==
[2019-11-05 14:36] VITALS: BMI 31.6
[2019-11-28 21:14] VITALS: BP 144/123; PULSE 100; RESP 16; TEMP 36.6; O2SAT 97; BMI 30.7
[2019-11-28 21:46] VITALS: PULSE 109; RESP 25; O2SAT 98
--- NOTE | 2019-11-28 22:29 | CT_ITS ---
STUDY: CT BRAIN WITHOUT CONTRAST REASON FOR EXAM: Male, 44 years old. INCREASED TREMORS POST MED CHANGE 9-3-20,ELEVATED BP -- SLURRED SPEECH X 5 DAYS -- HX:HTN,BIPOLAR,COPD RADIATION DOSAGE (If Supplied By Facility): CTDIvol = ( 44.99 ) mGy, DLP = ( 829.85 ) mGycm TECHNIQUE: Transaxial CT imaging of the brain was performed without administration of intravenous contrast material. Individualized dose optimization techniques were used for this CT. COMPARISON: No relevant priors. FINDINGS: Normal soft tissue structures. Normal calvarium. Normal size ventricles and extra-axial spaces for the patient''s age. Normal white matter tracts of the cerebral hemispheres. Normal basal ganglia and thalami. Normal brainstem. Normal cerebellum. There is no intracranial hemorrhage. There are no findings of an acute ischemic infarction. Normal visualized paranasal sinuses. CT/Brain/Head without Contrast IMPRESSION: Normal unenhanced CT scan of the brain. Electronically Signed: Von Junior DO at 23:15 EDT Tel [phone], Service support ,
[2019-11-28] MEDS: LORazepam 2 MG/ML Syringe 0.5 MG IV (22:54)
[2019-11-28] MEDS: 0.9% Normal Saline 1,000 ML 1000 ML IV (22:55)
[2019-11-28 23:03] LABS: Absolute Lymphocyte Count 1.49 X10^3/uL (0.83-4.51); Absolute Neutrophil Count 3.6 X10^3/uL (2.0-7.7); Basophil# 0.04 X10^3/uL; Basophil% 0.7 % (0-1); Eosinophil# 0.09 X10^3/uL; Eosinophils% 1.5 % (0-5); Hematocrit 46.4 % (40-54); Hemoglobin 16.3 g/dL (13.0-16.5); Lymphocyte # 1.49 X10^3/ul (4.0); Lymphocyte % 25.3 % (19-41); Mean Corp Hgb Conc 35.1 g/dL (32-36); Mean Corpuscular Hgb 32.1 pg (27.0-32.0); Mean Corpuscular Volume 91.5 fL (80-94); Mean Platelet Vol. 11.5 fl (6.2-12.0); Monocyte% 11.9 % (0-10); NRBC Flagged by Analyzer 0 % (0-5); Neutrophil # 3.55 X10^3/uL (2.7-7.7); Neutrophil % 60.1 % (47-70); Platelet Count 151 K/mm3 (150-450); RBC Distribution Width CV 13.6 % (11.6-14.6); RBC Distribution Width SD 45.4 fl (35.1-43.9); Red Blood Count 5.07 M/mm3 (4.6-6.2); White Blood Count 5.9 K/mm3 (4.4-11.0)
[2019-11-28 23:17] LABS: AST(SGOT) 65 U/L (15-37); Alanine Aminotransfer ALT/SGPT 93 U/L (16-61); Albumin, Serum 3.5 g/dL (3.2-5.0); Alkaline Phosphatase 91 U/L (45-117); Anion Gap 6 (5-15); BUN 10 mg/dL (7-18); BUN/Creat Ratio 10.5 RATIO (10-20); Calcium,Total 8.9 mg/dL (8.5-10.1); Chloride 112 mmol/L (98-107); Creatinine, Serum 0.95 mg/dL (0.70-1.30); EST Glomerular Filtration Rate 90 mL/min (>60); Est Glom Filt Rate - Afr Amer 109 mL/min (>60); Globulin 3.6 g/dL (2.2-4.2); Glucose 93 mg/dL (74-106); Potassium 3.1 mmol/L (3.5-5.1); Protein, Total 7.1 g/dL (6.4-8.2); Sodium Level 143 mmol/L (136-145)
[2019-11-28 23:55] VITALS: BP 134/91; PULSE 87; RESP 21; O2SAT 98
--- NOTE | 2019-11-29 00:49 | ED.VISSUMM ---
- ER Visit Summary Date of Service: 11/29/19 Chief Complaint: Tremors and slurred speech History of Present Illness: The patient is a 44 M who presents with tremors and slurred speech that is been getting worse over the past 5 days. Patient states he had medications changed on 11/18/2019. Patient states he stopped taking his Topamax because he was having every side effect from the medication. Family member states that when the patient is around a large crowd, his slurred speech gets worse. Patient states his shaking is generalized. Patient denies any fevers or chills. Patient does admit to some intermittent rhinorrhea recently. Patient denies any chest pain or shortness of breath. Patient denies any cough. Physical Examination: Vital signs are stable except for mildly elevated blood pressure of 144/123. Patient is afebrile. Patient is in no acute distress. Oral mucosa is pink and moist. Neck is supple. Trachea is midline. There is no JVD. Heart was regular rate and rhythm. Lungs are clear and equal bilaterally. Abdomen is soft. Bowel sounds are normal. There is no tenderness. Cranial nerves II through XII are intact. There are tremors of the upper extremities bilaterally. Strength is 5/5 bilateral in the upper and lower extremities. There are no sensory deficits noted. Extremities are intact. There is no calf tenderness or edema. Test Results: CBC was normal. Comprehensive metabolic profile showed a mild hypokalemia of 3.1. ALT was 93 and AST was 65. The remaining labs were within normal limits. CT scan of the brain was obtained. There is no acute intracranial abnormality. This was interpreted by the radiologist and reviewed by myself. Emergency Department Course and Treatment: Patient was given a dose of Ativan. Patient was given IV fluids. Patient was feeling better on reevaluation. Patient was instructed to follow-up with his primary care physician in 5 to 7 days. Patient understood and was agreeable with the plan. All questions were answered. Disposition: Discharge home Impression: Tremors This note was generated with [employer] dictation software. It may contain incorrect words, spelling, and punctuation that were not noted in review of the chart prior to signing ED Disposition - Plan for ED Patient: Disposition: Home or Assisted Living Diagnosis: Coarse tremors Instructions: Essential Tremor Disorder Referrals: Alejandro Lincoln MD [Primary Care Provider] - 3-5 Days
[2019-11-29 01:06] VITALS: BP 135/92; PULSE 97; RESP 17; O2SAT 95
== END 2019-11-29 01:13 | disposition home or self-care (01) ==
PROVIDERS: Emergency Provider Emergency Medicine; PCP Internal Medicine
DX: G25.2 Other specified forms of tremor (principal); F17.200 Nicotine dependence, unspecified, uncomplicated; I10 Essential (primary) hypertension; E78.00 Pure hypercholesterolemia, unspecified; J44.9 Chronic obstructive pulmonary disease, unspecified; Z79.899 Other long term (current) drug therapy; Z79.82 Long term (current) use of aspirin
CPT/HCPCS: 70450; 80053; 85025; 96374; 99283; J7030; A4216

== ENCOUNTER → 2019-12-08 12:17 | Outpatient (CLI) | payer MEDICAID, SELFPAY ==
[2019-12-08 11:31] VITALS: BMI 30.7
[2019-12-08 16:07] LABS: Valproic Acid (Depakene) Level 14 ug/mL (50-100)
[2019-12-08 16:24] LABS: AST(SGOT) 28 U/L (15-37); Alanine Aminotransfer ALT/SGPT 54 U/L (16-61); Albumin, Serum 3.7 g/dL (3.2-5.0); Alkaline Phosphatase 101 U/L (45-117); Anion Gap 3 (5-15); BUN 3 mg/dL (7-18); BUN/Creat Ratio 3.8 RATIO (10-20); Calcium,Total 9.2 mg/dL (8.5-10.1); Chloride 105 mmol/L (98-107); Creatinine, Serum 0.78 mg/dL (0.70-1.30); EST Glomerular Filtration Rate 114 mL/min (>60); Est Glom Filt Rate - Afr Amer 137 mL/min (>60); Globulin 3.6 g/dL (2.2-4.2); Glucose 86 mg/dL (74-106); Magnesium 2.2 mg/dL (1.6-2.6); Potassium 3.1 mmol/L (3.5-5.1); Protein, Total 7.3 g/dL (6.4-8.2); Sodium Level 140 mmol/L (136-145); Thyroid Stim Hormone (TSH) 0.85 uIU/mL (0.358-3.74)
== END ==
PROVIDERS: PCP Internal Medicine; Referring Provider Nurse Practitioner Family; Visit Provider Nurse Practitioner Family
DX: R25.1 Tremor, unspecified (principal); Z79.899 Other long term (current) drug therapy
CPT/HCPCS: 36415; 80053; 80164; 83735; 84443

== ENCOUNTER 2020-04-01 17:36 | Emergency (ER) | payer MEDICAID, SELFPAY ==
[2020-03-28 08:31] VITALS: BMI 30.7
[2020-04-01 17:37] VITALS: BP 157/107; PULSE 106; RESP 17; TEMP 36.1; O2SAT 97; BMI 27.3
--- NOTE | 2020-04-01 18:00 | ED.VIS.GEN ---
History of Present Illness Chief Complaint: Cold Sx Informant: Patient Narrative: 4-year-old male presents with nasal congestion, ear pressure, headache x1 week. He states that he has not tried anything for his congestion. He has tried Tylenol which takes his headache away. He denies fever, chills, myalgias, loss of taste or smell. He does not have a cough or shortness of breath. He denies chest pain. Prior similar symptoms: No Recent Illness/Hospitalization: No Past Medical History - Allergies and Home Meds Allergies/Adverse Reactions: Allergies topiramate [From Topamax] Adverse Reaction (Severe, Verified 04/01/20 17:37) tremors slurred speech, dizziness, memory loss as well. Primary Care Physician: Alejandro Lincoln MD [Primary Care Provider] - Prior records reviewed: Yes Past Medical History: - - COPD, erectile dysfunction, hyperlipidemia, hypertension, history of DVT Surgical History: noncontributory, - Lives: Alone Smoking Status: Current every day smoker - Family History Maternal Family History: Family History (Last Reviewed 12/08/19 @ 11:30 by Nory Villarreal) Mother Diabetes Alzheimer disease Father Asthma Heart disease Myocardial infarction, Onset Age: 59 Sister Myocardial infarction Hypertension Diabetes Spinal stenosis Son Seizures Family History: Reports: Diabetes Paternal Family History: Family History (Last Reviewed 12/08/19 @ 11:30 by Nory Villarreal) Mother Diabetes Alzheimer disease Father Asthma Heart disease Myocardial infarction, Onset Age: 59 Sister Myocardial infarction Hypertension Diabetes Spinal stenosis Son Seizures Family History: Reports: Asthma Sibling Family History: Family History (Last Reviewed 12/08/19 @ 11:30 by Nory Villarreal) Mother Diabetes Alzheimer disease Father Asthma Heart disease Myocardial infarction, Onset Age: 59 Sister Myocardial infarction Hypertension Diabetes Spinal stenosis Son Seizures Family History: Reports: Heart Disease Review of Systems General: Denies: Chills, Fever, Sweats Eyes: Denies: Visual changes - bilaterally, Diplopia ENT: Reports: Bilateral ear pain, Rhinorrhea, - - Nasal congestion Cardiovascular: Denies: Chest pain, Palpitations Respiratory: Denies: Dyspnea, Cough, Dyspnea on exertion Gastrointestinal: Denies: Abdominal pain, Nausea, Vomiting, Diarrhea, Melena, Hematochezia Genitourinary: Denies: Dysuria, Hematuria, Frequency Musculoskeletal: Denies: Back pain, Extremity Pain Skin: Denies: Rash, Wounds Neurological: Reports: Headache. Denies: Weakness, Parasthesia, Numbness Psych: Denies: Depression Physical Exam Vital Signs/Narrative: Vital Signs Temp Pulse Resp BP Pulse Ox 04/01/20 17:37 97.0 F L 106 H 17 157/107 H 97 General: Well nourished, No Acute Distress Head: Normocephalic, Atraumatic Eyes: Perrl, EOMI ENT: Nasal congestion, Sinus tenderness, - - Bilateral TMs are visualized and there is no erythema or bulging. Left TM has a slight defect which is likely a perforation without drainage. External auditory canals bilaterally show some cerumen without impaction. Neck: Nontender, No lymphadenopathy Cardiovascular: Regular rate, Regular rhythm Respiratory: No distress, CTA bilaterally Skin: Normal color, No rash. Negative for: Cyanosis, Diaphoresis Neurological: Alert, Oriented x3 Diagnostic/Tx/Re-eval - Medical Decision Making 4-year-old male presenting for headache, nasal congestion, ear fullness. Patient has no symptoms of cough, cold, fever, chills, myalgias, change in taste or smell. He has no known exposure to Covid?19. Patient will be given Mucinex as well as Sudafed for home. He was also given a prescription for Debrox for his ears. Patient has an ENT physician he will follow-up with. Patient was also tested for Covid?19 given his symptoms. He will quarantine at home. Patient stable for discharge. ED Disposition - Plan for ED Patient: Disposition: Home or Assisted Living Instructions: Pending Outpatient COVID Test, Coronavirus Disease 2019 (COVID-19): Caring for Yourself or Others, Preventing the Spread of Infection Understanding Isolation Procedures, ED Earwax Removal Prescriptions: Carbamide Peroxide [Ear Drops] 14.8 ml OT BID #2 drops Prescription Printed Guaifenesin [Mucinex] 600 mg PO Q2H PRN PRN #20 tab.er.12h PRN Reason: Congestion Prescription Printed Pseudoephedrine HCl [Sudafed 12 Hour] 120 mg PO Q12H #20 tablet.er Prescription Printed Referrals: Alejandro Lincoln MD [Primary Care Provider] -
[2020-04-01 18:12] VITALS: BP 186/109; PULSE 104; RESP 18; O2SAT 96
[2020-04-01 18:34] VITALS: BP 186/109; PULSE 104; RESP 18; O2SAT 96
== END 2020-04-01 18:34 | disposition home or self-care (01) ==
PROVIDERS: Emergency Provider Student in an Organized Health Care Education/Training Program; PCP Internal Medicine
DX: R09.81 Nasal congestion (principal); R51.9 Headache, unspecified; F17.200 Nicotine dependence, unspecified, uncomplicated; Z86.718 Personal history of other venous thrombosis and embolism
CPT/HCPCS: 87635; 99282; U0003

== ENCOUNTER → 2020-04-10 11:25 | Outpatient (CLI) | payer MEDICAID, SELFPAY ==
[2020-04-10 11:25] VITALS: BMI 30.7
[2020-04-10 13:19] LABS: ALB/GLOB Ratio 1.1 RATIO (0.9-2.4); AST(SGOT) 19 U/L (15-37); Alanine Aminotransfer ALT/SGPT 31 U/L (16-61); Alkaline Phosphatase 106 U/L (45-117); Anion Gap 9 (5-15); BUN 4 mg/dL (7-18); BUN/Creat Ratio 5.3 RATIO (10-20); Calcium,Total 9.3 mg/dL (8.5-10.1); Chloride 104 mmol/L (98-107); Cholesterol 237 mg/dL (200); Creatinine, Serum 0.75 mg/dL (0.70-1.30); EST Glomerular Filtration Rate 118 mL/min (>60); Est Glom Filt Rate - Afr Amer 143 mL/min (>60); Globulin 3.8 g/dL (2.2-4.2); Glucose 89 mg/dL (74-106); High Density Lipoprotein 29 mg/dL; Potassium 3.3 mmol/L (3.5-5.1); Protein, Total 7.8 g/dL (6.4-8.2); Sodium Level 140 mmol/L (136-145); Triglycerides 338 mg/dL; Very Low Density Lipoprotein 68 mg/dL (5-40)
== END ==
PROVIDERS: PCP Internal Medicine; Referring Provider Internal Medicine; Visit Provider Internal Medicine
DX: I10 Essential (primary) hypertension (principal); E78.5 Hyperlipidemia, unspecified
CPT/HCPCS: 36415; 80053; 80061

== ENCOUNTER → 2020-05-10 09:12 | Outpatient (CLI) | payer MEDICAID, SELFPAY ==
[2020-05-10 08:52] VITALS: BMI 28.6
[2020-05-10 12:25] LABS: Absolute Lymphocyte Count 2.42 X10^3/uL (0.83-4.51); Basophil# 0.06 X10^3/uL; Basophil% 0.7 % (0-1); Eosinophil# 0.27 X10^3/uL; Eosinophils% 3.1 % (0-5); Hematocrit 54.1 % (40-54); Lymphocyte # 2.42 X10^3/ul (4.0); Lymphocyte % 27.8 % (19-41); Mean Corp Hgb Conc 33.8 g/dL (32-36); Mean Corpuscular Hgb 30.9 pg (27.0-32.0); Mean Corpuscular Volume 91.4 fL (80-94); Mean Platelet Vol. 12.4 fl (6.2-12.0); Monocyte# 0.89 X10^3/uL; Monocyte% 10.2 % (0-10); NRBC Flagged by Analyzer 0 % (0-5); Neutrophil # 5.04 X10^3/uL (2.7-7.7); Neutrophil % 57.9 % (47-70); Platelet Count 186 K/mm3 (150-450); RBC Distribution Width CV 13.7 % (11.6-14.6); RBC Distribution Width SD 45.9 fl (35.1-43.9); Red Blood Count 5.92 M/mm3 (4.6-6.2); White Blood Count 8.7 K/mm3 (4.4-11.0)
[2020-05-10 12:31] LABS: Differential Indicated SCAN CRITERIA MET; Hemoglobin 18.3 g/dL (13.0-16.5)
[2020-05-11 13:02] LABS: Pathologist Review Reviewed
== END ==
PROVIDERS: PCP Internal Medicine; Referring Provider Internal Medicine; Visit Provider Internal Medicine
DX: K25.9 Gastric ulcer, unspecified as acute or chronic, without hemorrhage or perforation (principal)
CPT/HCPCS: 36415; 85025

== ENCOUNTER 2020-05-25 11:48 | Emergency (ER) | payer MEDICAID, SELFPAY ==
[2020-05-25 10:14] VITALS: BMI 28.5
[2020-05-25 11:49] VITALS: BP 150/101; PULSE 107; RESP 18; TEMP 36.6; O2SAT 96; BMI 28.3
[2020-05-25 12:31] VITALS: O2SAT 97
--- NOTE | 2020-05-25 12:31 | ED.RN ---
PER DR HUBBARD, NONREBREATHER MUST BE APPLIED TO PATIENT FOR 4-6 HRS. APPLIED [id number]
--- NOTE | 2020-05-25 12:37 | EKG12_ITS ---
Test Reason : Blood Pressure : / mmHG Vent. Rate : 091 BPM Atrial Rate : 091 BPM P-R Int : 180 ms QRS Dur : 086 ms QT Int : 362 ms P-R-T Axes : 052 -20 062 degrees QTc Int : 445 ms Normal sinus rhythm Normal ECG Confirmed by GERALDO MOODY, RICHARDSON ([id number]), publications editor CARLOS A NEWTON ([id number]) on 05/29/2020 11:03:14 A M Referred By: STEVIE Confirmed By:RYLIE CHOW MD
[2020-05-25 12:56] LABS: Absolute Lymphocyte Count 1.93 X10^3/uL (0.83-4.51); Absolute Neutrophil Count 5.1 X10^3/uL (2.0-7.7); Basophil# 0.06 X10^3/uL; Basophil% 0.8 % (0-1); Eosinophils% 1.3 % (0-5); Hematocrit 47.7 % (40-54); Hemoglobin 16.7 g/dL (13.0-16.5); Lymphocyte # 1.93 X10^3/ul (4.0); Mean Corpuscular Hgb 31.3 pg (27.0-32.0); Mean Corpuscular Volume 89.5 fL (80-94); Mean Platelet Vol. 11.8 fl (6.2-12.0); Monocyte# 0.51 X10^3/uL; Monocyte% 6.6 % (0-10); NRBC Flagged by Analyzer 0 % (0-5); Platelet Count 170 K/mm3 (150-450); RBC Distribution Width CV 13.6 % (11.6-14.6); RBC Distribution Width SD 44.2 fl (35.1-43.9); Red Blood Count 5.33 M/mm3 (4.6-6.2); White Blood Count 7.7 K/mm3 (4.4-11.0)
[2020-05-25 12:58] LABS: Carboxyhemoglobin Frac (CO) 14.8 % (0.0-1.5)
[2020-05-25 13:14] LABS: Anion Gap 3 (5-15); BUN 3 mg/dL (7-18); BUN/Creat Ratio 4.7 RATIO (10-20); Calcium,Total 8.9 mg/dL (8.5-10.1); Chloride 109 mmol/L (98-107); Creatinine, Serum 0.63 mg/dL (0.70-1.30); EST Glomerular Filtration Rate 144 mL/min (>60); Est Glom Filt Rate - Afr Amer 174 mL/min (>60); Estimated Creatinine Clearance 146.51 ml/min; Glucose 92 mg/dL (74-106); Potassium 3.6 mmol/L (3.5-5.1); Sodium Level 142 mmol/L (136-145)
[2020-05-25 13:22] VITALS: O2SAT 97
[2020-05-25 14:00] VITALS: BP 124/86; PULSE 83; RESP 19; O2SAT 99
[2020-05-25 14:42] LABS: Carboxyhemoglobin Frac (CO) 8.2 % (0.0-1.5)
--- NOTE | 2020-05-25 15:04 | ED.VIS.GEN ---
History of Present Illness Chief Complaint: Abn Labs Informant: Patient Narrative: 44-year-old male with history of polycythemia for the last year was sent to hematology, Dr. Rain to check the carboxyhemoglobin level even though the patient had no symptoms of anything. Patient's carboxyhemoglobin came back at 21. Denies any symptoms at all. He is not having any lightheadedness, dizziness, neurological symptoms. He is not short of breath. He does state prior to getting his lab draw he smoked a pack of cigarettes before 10:30 in the morning. - Past Medical History (1) Tobacco use Status: Chronic (2) Erectile dysfunction Status: Chronic (3) Thrombocytopenia Status: Chronic Past Medical History - Allergies and Home Meds Allergies/Adverse Reactions: Allergies valbenazine [From Ingrezza] Allergy (Verified 05/25/20 11:50) Other Tremors topiramate [From Topamax] Adverse Reaction (Severe, Verified 05/25/20 11:50) tremors slurred speech, dizziness, memory loss as well. Primary Care Physician: Alejandro Lincoln MD [Primary Care Provider] - Past Medical History: - - Hyperlipidemia, hypertension, polycythemia, ED, depression, COPD Surgical History: noncontributory, - Lives: Spouse/ Significant Other Smoking Status: Current every day smoker Alcohol: None Drugs: None - Family History Maternal Family History: Family History (Last Reviewed 05/25/20 @ 10:13 by Beverley Ramírez) Mother Diabetes Alzheimer disease Father Asthma Heart disease Myocardial infarction, Onset Age: 59 Sister Myocardial infarction Hypertension Diabetes Spinal stenosis Son Seizures Family History: Reports: Diabetes Paternal Family History: Family History (Last Reviewed 05/25/20 @ 10:13 by Beverley Ramírez) Mother Diabetes Alzheimer disease Father Asthma Heart disease Myocardial infarction, Onset Age: 59 Sister Myocardial infarction Hypertension Diabetes Spinal stenosis Son Seizures Family History: Reports: Asthma Sibling Family History: Family History (Last Reviewed 05/25/20 @ 10:13 by Beverley Ramírez) Mother Diabetes Alzheimer disease Father Asthma Heart disease Myocardial infarction, Onset Age: 59 Sister Myocardial infarction Hypertension Diabetes Spinal stenosis Son Seizures Family History: Reports: Heart Disease Review of Systems General: Denies: Chills, Fever, Sweats Eyes: Denies: Visual changes - bilaterally, Diplopia ENT: Denies: Rhinorrhea, Sore throat Cardiovascular: Denies: Chest pain, Palpitations Respiratory: Denies: Dyspnea, Cough, Dyspnea on exertion Gastrointestinal: Denies: Abdominal pain, Nausea, Vomiting, Diarrhea, Melena, Hematochezia Genitourinary: Denies: Dysuria, Hematuria, Frequency Musculoskeletal: Denies: Back pain, Extremity Pain Skin: Denies: Rash, Wounds Neurological: Denies: Headache, Weakness, Numbness Psych: Denies: Depression, Anxiety, Suicidal thoughts, Suicidal ideations, -, - Physical Exam Vital Signs/Narrative: Vital Signs Temp Pulse Resp BP Pulse Ox 05/25/20 14:00 83 19 H 124/86 H 99 05/25/20 13:22 97 05/25/20 12:31 97 05/25/20 11:49 97.9 F 107 H 18 150/101 H 96 Inital Vital Signs reviewed: Yes General: Well nourished, No Acute Distress Head: Normocephalic, Atraumatic Eyes: Perrl, EOMI ENT: Moist mucous membranes, Sinus tenderness Cardiovascular: Regular rate, Regular rhythm Respiratory: No distress, CTA bilaterally Abdomen: Soft, Nontender Skin: Normal color, No rash Neurological: Alert, Oriented x3, Cranial nerves II-XII grossly intact Psychological: Normal affect, Normal Mood Diagnostic/Tx/Re-eval Laboratory Data 05/25/20 05/25/20 05/25/20 12:51 12:51 12:51 WBC 7.7 RBC 5.33 Hgb 16.7 H Hct 47.7 MCV 89.5 MCH 31.3 MCHC 35.0 RDW Std Deviation 44.2 H RDW Coeff of Clay 13.6 Plt Count 170 MPV 11.8 Immature Gran % (Auto) 0.300 Neut % (Auto) 66.0 Lymph % (Auto) 25.0 Platte % (Auto) 6.6 Eos % (Auto) 1.3 Baso % (Auto) 0.8 Absolute Neuts (auto) 5.1 Absolute Lymphs (auto) 1.93 Nucleated RBC % 0 VBG Carboxyhemoglobin 14.8 H Sodium 142 Potassium 3.6 Chloride 109 H Carbon Dioxide 30.0 Anion Gap 3 L BUN 3 L Creatinine 0.63 L Estim Creat Clear Calc 146.51 Est GFR (MDRD) Af Amer 174 Est GFR (MDRD) Non-Af 144 BUN/Creatinine Ratio 4.7 L Glucose 92 Calcium 8.9 Troponin I < 0.015 05/25/20 14:29 WBC RBC Hgb Hct MCV MCH MCHC RDW Std Deviation RDW Coeff of Clay Plt Count MPV Immature Gran % (Auto) Neut % (Auto) Lymph % (Auto) Platte % (Auto) Eos % (Auto) Baso % (Auto) Absolute Neuts (auto) Absolute Lymphs (auto) Nucleated RBC % VBG Carboxyhemoglobin 8.2 H Sodium Potassium Chloride Carbon Dioxide Anion Gap BUN Creatinine Estim Creat Clear Calc Est GFR (MDRD) Af Amer Est GFR (MDRD) Non-Af BUN/Creatinine Ratio Glucose Calcium Troponin I - Medical Decision Making 44-year-old male presenting with elevated carboxyhemoglobin level. It is unclear why this was ordered. Patient states he has had no symptoms of anything. Patient denies chest pain, palpitations, shortness of breath. After being placed on 100% nonrebreather his repeat carboxyhemoglobin is 8.2. Poison control did recommend that we get it down to around 5 however the patient smokes 2 packs of cigarettes at least a day. Enzymes and EKG. EKG performed and interpreted by myself shows a normal sinus rhythm at 91 bpm without signs of ischemic changes. Lab work is unremarkable. Troponin negative. Patient will be monitored for another hour with high flow oxygen and will be discharged home as he is asymptomatic. Patient did have his house checked by local fire house and it was negative for any acute leaks. Impression: 1. Elevated carboxyhemoglobin resolved ED Disposition - Plan for ED Patient: Referrals: Alejandro Lincoln MD [Primary Care Provider] -
[2020-05-25 16:21] VITALS: BP 116/82; PULSE 81; RESP 18; O2SAT 100
== END 2020-05-25 16:22 | disposition home or self-care (01) ==
PROVIDERS: Emergency Provider Student in an Organized Health Care Education/Training Program; PCP Internal Medicine
DX: R79.9 Abnormal finding of blood chemistry, unspecified (principal); D75.1 Secondary polycythemia; F17.200 Nicotine dependence, unspecified, uncomplicated
CPT/HCPCS: 36415; 80048; 82375; 84484; 85025; 93005; 99283; A4216

== ENCOUNTER → 2020-09-21 11:49 | Outpatient (CLI) | payer MEDICAID, SELFPAY ==
[2020-09-21 11:45] VITALS: BMI 27.7
[2020-09-21 15:21] LABS: Anion Gap 6 (5-15); BUN 9 mg/dL (7-18); BUN/Creat Ratio 11.7 RATIO (10-20); Calcium,Total 8.8 mg/dL (8.5-10.1); Chloride 108 mmol/L (98-107); Creatinine, Serum 0.77 mg/dL (0.70-1.30); EST Glomerular Filtration Rate 115 mL/min (>60); Est Glom Filt Rate - Afr Amer 139 mL/min (>60); Glucose 97 mg/dL (74-106); Potassium 3.6 mmol/L (3.5-5.1); Sodium Level 139 mmol/L (136-145); Thyroid Stim Hormone (TSH) 1.15 uIU/mL (0.358-3.74)
== END ==
PROVIDERS: PCP Internal Medicine; Referring Provider Internal Medicine; Visit Provider Internal Medicine
DX: I10 Essential (primary) hypertension (principal)
CPT/HCPCS: 36415; 80048; 84443

== ENCOUNTER → 2020-10-02 11:26 | Outpatient (CLI) | payer MEDICAID, SELFPAY ==
[2020-09-21 11:45] VITALS: BMI 27.7
[2020-10-02 12:26] LABS: Absolute Lymphocyte Count 1.92 X10^3/uL (0.83-4.51); Absolute Neutrophil Count 2.7 X10^3/uL (2.0-7.7); Basophil# 0.08 X10^3/uL; Basophil% 1.4 % (0-1); Eosinophil# 0.28 X10^3/uL; Eosinophils% 4.9 % (0-5); Hematocrit 41.8 % (40-54); Hemoglobin 14.9 g/dL (13.0-16.5); Lymphocyte # 1.92 X10^3/ul (0.83-4.51); Lymphocyte % 33.4 % (19-41); Mean Corp Hgb Conc 35.6 g/dL (32-36); Mean Corpuscular Hgb 31.9 pg (27.0-32.0); Mean Corpuscular Volume 89.5 fL (80-94); Mean Platelet Vol. 11.5 fl (6.2-12.0); Monocyte# 0.66 X10^3/uL; Monocyte% 11.5 % (0-10); NRBC Flagged by Analyzer 0 % (0-5); Neutrophil # 2.72 X10^3/uL (2.7-7.7); Neutrophil % 47.4 % (47-70); Platelet Count 214 K/mm3 (150-450); RBC Distribution Width CV 14.2 % (11.6-14.6); RBC Distribution Width SD 46.3 fl (35.1-43.9); Red Blood Count 4.67 M/mm3 (4.6-6.2); White Blood Count 5.7 K/mm3 (4.4-11.0)
[2020-10-02 13:10] LABS: Valproic Acid (Depakene) Level 108 ug/mL (50-100)
[2020-10-02 13:11] LABS: ALB/GLOB Ratio 0.9 RATIO (0.9-2.4); AST(SGOT) 18 U/L (15-37); Alanine Aminotransfer ALT/SGPT 27 U/L (16-61); Albumin, Serum 3.3 g/dL (3.2-5.0); Alkaline Phosphatase 125 U/L (45-117); Anion Gap 8 (5-15); BUN 4 mg/dL (7-18); Calcium,Total 8.5 mg/dL (8.5-10.1); Chloride 103 mmol/L (98-107); Creatinine, Serum 0.81 mg/dL (0.70-1.30); EST Glomerular Filtration Rate 109 mL/min (>60); Est Glom Filt Rate - Afr Amer 132 mL/min (>60); Globulin 3.6 g/dL (2.2-4.2); Glucose 112 mg/dL (74-106); Potassium 3.4 mmol/L (3.5-5.1); Protein, Total 6.9 g/dL (6.4-8.2); Sodium Level 137 mmol/L (136-145)
== END ==
PROVIDERS: PCP Internal Medicine; Visit Provider Registered Nurse
DX: F31.9 Bipolar disorder, unspecified (principal); F19.10 Other psychoactive substance abuse, uncomplicated; R53.83 Other fatigue; Z79.899 Other long term (current) drug therapy
CPT/HCPCS: 36415; 80053; 80164; 85025

== ENCOUNTER → 2020-11-02 10:10 | Outpatient (CLI) | payer MEDICAID, SELFPAY ==
[2020-09-21 11:45] VITALS: BMI 27.7
[2020-11-02 11:48] LABS: Valproic Acid (Depakene) Level 94 ug/mL (50-100)
[2020-11-02 11:53] LABS: AST(SGOT) 10 U/L (15-37); Alanine Aminotransfer ALT/SGPT 22 U/L (16-61); Albumin, Serum 3.3 g/dL (3.2-5.0); Alkaline Phosphatase 100 U/L (45-117); Anion Gap 6 (5-15); BUN 4 mg/dL (7-18); BUN/Creat Ratio 5.3 RATIO (10-20); Bilirubin, Direct 0.12 mg/dL (0.00-0.30); Calcium,Total 8.7 mg/dL (8.5-10.1); Chloride 104 mmol/L (98-107); Creatinine, Serum 0.75 mg/dL (0.70-1.30); EST Glomerular Filtration Rate 119 mL/min (>60); Est Glom Filt Rate - Afr Amer 144 mL/min (>60); Globulin 3.7 g/dL (2.2-4.2); Glucose 131 mg/dL (74-106); Phosphorus 2.1 mg/dL (2.5-4.9); Potassium 3.9 mmol/L (3.5-5.1); Sodium Level 138 mmol/L (136-145)
== END ==
PROVIDERS: PCP Internal Medicine; Referring Provider Registered Nurse; Visit Provider Registered Nurse
DX: F31.9 Bipolar disorder, unspecified (principal); F19.10 Other psychoactive substance abuse, uncomplicated; R53.83 Other fatigue; Z79.899 Other long term (current) drug therapy
CPT/HCPCS: 36415; 80048; 80076; 80164; 84100

== ENCOUNTER 2021-05-21 07:44 | Emergency (ER) | payer OTHER, MEDICAID, SELFPAY ==
[2021-05-21 07:45] VITALS: BP 160/105; PULSE 99; RESP 14; TEMP 36.3; O2SAT 100; BMI 27.3
--- NOTE | 2021-05-21 08:12 | EDS_ITS ---
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 He has no radiation of the pain he has no bowel or bladder compromise, he has no urinary retention symptoms. He has no weakness, no saddle anesthesias. No recent fevers or chills. [facility] Medical History Chest pain COPD (chronic obstructive pulmonary disease) Degenerative disk disease Dermatitis Diarrhea H pylori ulcer (~05/01/20) HTN (hypertension) Hyperlipidemia Hypertension Peripheral arterial occlusive disease Polycythemia Skin lesion Snoring Home Medications budesonide-formoterol HFA 160 mcg-4.5 mcg/actuation aerosol inhaler 2 puff INHALATION Q12H #10.2 g 05/13/19 [Rx Last Taken Unknown] aripiprazole 20 mg tablet 20 mg PO DAILY 09/06/19 [History Last Taken Unknown] divalproex 250 mg tablet,delayed release 500 mg PO QHS tab 09/06/19 [History Last Taken Unknown] albuterol sulfate 90 mcg/actuation aerosol inhaler 1 puff INHALATION Q6H PRN #8.5 g 10/19/19 [Rx Last Taken Unknown] aripiprazole 5 mg PO QHS 11/28/19 [History Last Taken Unknown] methocarbamol 500 mg tablet See Rx Instructions .ROUTE .COMPLEX #90 tab 04/04/20 [Rx Last Taken Unknown] omeprazole 40 mg capsule,delayed release 40 mg PO BID 05/10/20 [History Last Taken Unknown] aspirin 325 mg PO DAILY 05/18/20 [History Last Taken Unknown] Lactobacillus acidophilus 1 each PO DAILY 06/07/20 [History Last Taken Unknown] loperamide 2 mg PO Q2H PRN 06/07/20 [History Last Taken Unknown] blood pressure monitor #1 ea 09/21/20 [Rx Last Taken Unknown] labetalol 100 mg tablet 100 mg PO BID PRN #60 tab 10/13/20 [Rx Last Taken Unknown] lisinopril 40 mg tablet 40 mg PO DAILY #90 tab 02/13/21 [Rx Last Taken Unknown] atorvastatin 40 mg tablet 40 mg PO DAILY #90 tab 04/02/21 [Rx Last Taken Unknown] gabapentin 600 mg tablet 600 mg PO .Q6 #120 tab 04/27/21 [Rx Last Taken Unknown] naproxen [Naprosyn] 500 mg PO BID #14 tab 05/21/21 [Rx Last Taken Unknown] tizanidine 2 mg PO Q8H PRN 10 Days #10 tab 05/21/21 [Rx Last Taken Unknown] Allergy/AdvReac Type Severity Reaction Status Date / Time valbenazine [From Ingrezza] Allergy Other Verified 05/21/21 07:47 topiramate [From Topamax] AdvReac Severe tremors Verified 05/21/21 07:47 Family History Mother Diabetes Alzheimer disease Father Asthma Heart disease Myocardial infarction, Onset Age: 59 passed Sister Myocardial infarction early 40s Hypertension Diabetes Spinal stenosis Son Seizures born with hydocephalus Surgical History EGD w/o or w/ brush/wash finger surgery H/O partial cystectomy History of colonoscopy myringotomy w ube, bilateral Social History Smoking Status: Current every day smoker tobacco type: cigarettes Tobacco: How many years used: 28 quit status: considering quitting alcohol intake: never substance use type: does not use what type of physical activity do you participate in: none ROS ROS ED ROS Narrative Past medical history: Reviewed Medications: Reviewed Social history: Noncontributory Review of systems: All systems negative except as indicated General: No fever Neck: No neck pain Cardiovascular: No chest pain Respiratory: No shortness of breath or cough Gastrointestinal: No abdominal pain, nausea vomiting or diarrhea Genitourinary: No dysuria Musculoskeletal: Denies myalgias no difficulty with ambulation Back: Back pain as in HPI Skin: No rash Neurological: No memory loss, confusion or any focal weakness Psych: No recent behavioral changes Hematologic: No easy bleeding or easy bruising EXAM Physical Exam Narrative Exam Narrative: Vitals reviewed General: Patient appears in some discomfort HEENT: Moist mucous membranes Neck: Nontender Cardiovascular normal heart rate Respiratory: No respiratory difficulty speaking in full sentences Abdomen: Soft and nontender, there is no suprapubic mass or pain Back: There is some tenderness over the lumbar region, pain is spinal and paraspinal both. Extremities: Moves all extremities without joint pain or signs of trauma Neurological: There is normal plantar flexion and dorsiflexion of both feet and great toes. Patellar and Achilles reflexes are normal. Normal strength and sensation. Negative straight leg test. Skin: No rash Psychiatric: Slightly anxious. Const Vital Signs: 05/21/21 07:45 Temperature 97.4 F L Temperature Source Temporal Pulse Rate 99 Respiratory Rate 14 Blood Pressure 160/105 H Blood Pressure Mean 123 Pulse Ox 100 Oxygen Delivery Method Room Air MDM MDM MDM Narrative Medical decision making narrative: Patient has a normal exam, there are no red flags for cauda equina. He will be treated symptomatically. Discharge Plan Triage Chief Complaint: Back ED Provider: Eriberto Whitman Dx/Rx/DC Orders Clinical Impression: Back pain Instructions: Anatomy of a Normal Spine, Back Basics: A Healthy Spine, Back Exercises: Back Press Prescriptions: New naproxen [Naprosyn] 500 mg tablet 500 mg PO BID Qty: 14 RF: 0 tizanidine 2 mg tablet 2 mg PO Q8H PRN (Reason: muscle spasticity) 10 Days Qty: 10 RF: 0 No Action budesonide-formoterol [Symbicort] 160-4.5 mcg/actuation HFA aerosol inhaler 2 puff INHALATION Q12H Qty: 10.2 RF: 1 aripiprazole 20 mg tablet 20 mg PO DAILY RF: 0 divalproex [Depakote] 250 mg tablet,delayed release (DR/EC) 500 mg PO QHS RF: 0 albuterol sulfate 90 mcg/actuation HFA aerosol inhaler 1 puff INHALATION Q6H PRN (Reason: shortness of breath or wheezing) Qty: 8.5 RF: 3 omeprazole 40 mg capsule,delayed release(DR/EC) 40 mg PO BID RF: 0 (DME) blood pressure monitor Kit See Rx Instructions .ROUTE .MEDSUPPLY Qty: 1 RF: 0 aripiprazole 5 MG tablet 5 mg PO QHS RF: 0 aspirin 325 MG tablet 325 mg PO DAILY RF: 0 loperamide 2 MG capsule 2 mg PO Q2H PRN (Reason: Diarrhea) RF: 0 Lactobacillus acidophilus 1 EACH capsule 1 each PO DAILY RF: 0 methocarbamol 500 mg tablet See Rx Instructions .ROUTE .COMPLEX Qty: 90 RF: 1 labetalol 100 mg tablet 100 mg PO BID PRN (Reason: hypertension) Qty: 60 RF: 1 lisinopril 40 mg tablet 40 mg PO DAILY Qty: 90 RF: 1 atorvastatin 40 mg tablet 40 mg PO DAILY Qty: 90 RF: 3 gabapentin 600 mg tablet 600 mg PO .Q6 Qty: 120 RF: 2 Primary Care Provider: Alejandro Lincoln Referrals: Alejandro Lincoln MD [Primary Care Provider] - 3-5 Days Disposition Disposition: Home, Self Care
== END 2021-05-21 08:25 | disposition home or self-care (01) ==
LOC: ED 08:24
PROVIDERS: Emergency Provider Emergency Medicine; PCP Internal Medicine; Visit Provider Emergency Medicine
DX: M54.9 Dorsalgia, unspecified (principal); J44.9 Chronic obstructive pulmonary disease, unspecified; E78.5 Hyperlipidemia, unspecified; F17.210 Nicotine dependence, cigarettes, uncomplicated; I10 Essential (primary) hypertension; Z79.82 Long term (current) use of aspirin; Z79.899 Other long term (current) drug therapy
CPT/HCPCS: 99282

== ENCOUNTER → 2021-09-19 | Outpatient (CLI) | payer MEDICAID, SELFPAY ==
[2021-09-19 12:05] LABS: Absolute Lymphocyte Count 1.45 X10^3/uL (0.83-4.51); Absolute Neutrophil Count 2.5 X10^3/uL (2.0-7.7); Basophil# 0.02 X10^3/uL; Basophil% 0.4 % (0-1); Eosinophil# 0.16 X10^3/uL; Eosinophils% 3.6 % (0-5); Hematocrit 45.6 % (40-54); Hemoglobin 15.7 g/dL (13.0-16.5); Lymphocyte # 1.45 X10^3/ul (0.83-4.51); Lymphocyte % 32.4 % (19-41); Mean Corp Hgb Conc 34.4 g/dL (32-36); Mean Corpuscular Hgb 30.3 pg (27.0-32.0); Mean Corpuscular Volume 87.9 fL (80-94); Mean Platelet Vol. 12.8 fl (6.2-12.0); Monocyte# 0.37 X10^3/uL; Monocyte% 8.3 % (0-10); NRBC Flagged by Analyzer 0 % (0-5); Neutrophil # 2.46 X10^3/uL (2.7-7.7); Neutrophil % 54.9 % (47-70); Platelet Count 120 K/mm3 (150-450); RBC Distribution Width CV 12.6 % (11.6-14.6); RBC Distribution Width SD 40.6 fl (35.1-43.9); Red Blood Count 5.19 M/mm3 (4.6-6.2); White Blood Count 4.5 K/mm3 (4.4-11.0)
[2021-09-19 12:42] LABS: ALB/GLOB Ratio 1.1 RATIO (0.9-2.4); AST(SGOT) 13 U/L (15-37); Alanine Aminotransfer ALT/SGPT 18 U/L (16-61); Albumin, Serum 3.6 g/dL (3.2-5.0); Alkaline Phosphatase 135 U/L (45-117); Anion Gap 3 (5-15); BUN 6 mg/dL (7-18); BUN/Creat Ratio 8.2 RATIO (10-20); Calcium,Total 8.7 mg/dL (8.5-10.1); Chloride 103 mmol/L (98-107); Creatinine, Serum 0.74 mg/dL (0.70-1.30); EST Glomerular Filtration Rate 121 mL/min (>60); Est Glom Filt Rate - Afr Amer 146 mL/min (>60); Globulin 3.3 g/dL (2.2-4.2); Glucose 87 mg/dL (74-106); Potassium 3.9 mmol/L (3.5-5.1); Protein, Total 6.9 g/dL (6.4-8.2); Sodium Level 135 mmol/L (136-145)
[2021-09-19 12:44] LABS: Cholesterol 102 mg/dL (200); High Density Lipoprotein 33 mg/dL; Triglycerides 88 mg/dL; Very Low Density Lipoprotein 18 mg/dL (5-40)
== END | disposition home or self-care (01) ==
LOC: BIMLAB 11:16
PROVIDERS: PCP Internal Medicine; Referring Provider Physician Assistant; Visit Provider Physician Assistant
DX: I10 Essential (primary) hypertension (principal)
CPT/HCPCS: 36415; 80053; 80061; 85025

== ENCOUNTER 2021-11-12 08:12 | Emergency (ER) | payer MEDICAID, SELFPAY ==
[2021-11-12 08:13] VITALS: BP 172/94; PULSE 90; RESP 18; TEMP 36.6; O2SAT 99; BMI 24.3
--- NOTE | 2021-11-12 08:50 | EX.ED.DYSGE1 ---
HPI History of Present Illness Chief Complaint: Chest Other Informant: patient Onset/Context/Timing Onset: Days (5) Context: Sudden Onset Timing: Continuous Quality: Sharp Location: Left chest Worsened by: Coughing, deep breathing Relieved by: Nothing Narrative Narrative: Patient presents with left-sided chest pain that began 4 days ago. Patient describes it as sharp. Patient states it began suddenly after coughing episode. Patient states he has been coughing for the last 5 days. Patient states he felt a pop while he was coughing. Patient states the pain is sharp. Patient states it is over the left upper chest. Patient states it is worse with coughing and deep breathing. Patient denies any shortness of breath. Patient denies any fevers or chills. [facility] Medical History Chest pain COPD (chronic obstructive pulmonary disease) Degenerative disk disease Dermatitis Diarrhea H pylori ulcer (~05/01/20) HTN (hypertension) Hyperlipidemia Hypertension Left elbow pain Peripheral arterial occlusive disease Polycythemia Skin lesion Snoring Home Medications budesonide-formoterol HFA 160 mcg-4.5 mcg/actuation aerosol inhaler (Symbicort) 2 puff inhalation Q12H #10.2 grams 05/13/19 [Rx Last Taken Unknown] albuterol sulfate 90 mcg/actuation aerosol inhaler 1 puff inhalation Q6H PRN shortness of breath or wheezing #8.5 grams 10/19/19 [Rx Last Taken Unknown] aspirin 325 mg tablet 325 mg PO DAILY 05/18/20 [History Last Taken Unknown] blood pressure monitor #1 ea 09/21/20 [Rx Last Taken Unknown] labetalol 100 mg tablet 100 mg PO BID PRN hypertension #60 tabs 10/13/20 [Rx Last Taken Unknown] atorvastatin 40 mg tablet 40 mg PO DAILY #90 tabs 08/17/21 [Rx Last Taken Unknown] gabapentin 600 mg tablet 600 mg PO .Q6 #120 tabs 08/17/21 [Rx Last Taken Unknown] lisinopril 40 mg tablet 20 mg PO DAILY #90 tabs 09/26/21 [Rx Last Taken Unknown] Allergy/AdvReac Type Severity Reaction Status Date / Time valbenazine [From Ingrezza] Allergy Other Verified 11/12/21 08:15 topiramate [From Topamax] AdvReac Severe tremors Verified 11/12/21 08:15 Family History Mother Diabetes Alzheimer disease Father Asthma Heart disease Myocardial infarction, Onset Age: 59 passed Sister Myocardial infarction early 40s Hypertension Diabetes Spinal stenosis Son Seizures born with hydocephalus Surgical History EGD w/o or w/ brush/wash finger surgery H/O partial cystectomy History of colonoscopy myringotomy w ube, bilateral Social History Smoking Status: Current every day smoker tobacco type: cigarettes Tobacco: How many years used: 28 quit status: considering quitting alcohol intake: never substance use type: does not use what type of physical activity do you participate in: none ROS ROS ED Constitutional Constitutional ED: Denies chills or fever(s) Eyes Eyes: Denies blurry vision or change in vision ENT ENT ED: Denies rhinorrhea or sore throat Cardiovascular Cardiovascular: Reports chest pain; Denies palpitations Respiratory/Chest Respiratory/Chest: Reports cough; Denies dyspnea Gastrointestinal Gastrointestinal: Denies nausea or vomiting Genitourinary Genitourinary ED: Denies dysuria or hematuria Musculoskeletal Musculoskeletal: Denies back pain or neck pain Integumentary Denies abscess or rash Neurologic Neurologic: Denies headache(s) or weakness Allergic/Immunologic Allergic/Immunologic ED: Denies mouth swelling or urticaria EXAM Physical Exam Const Vital Signs: 11/12/21 08:13 Temperature 97.9 F Temperature Source Temporal Pulse Rate 90 Respiratory Rate 18 Blood Pressure 172/94 H Blood Pressure Mean 120 Pulse Ox 99 Oxygen Delivery Method Room Air Positive well nourished and well developed General Appearance ED: well developed and NAD HEENT Reports moist mucous membranes Neck supple and no JVD Resp normal respiratory effort and clear to auscultation bilaterally Cardio regular rate, regular rhythm and no murmurs GI normal to inspection, nondistended, normoactive bowel sounds and non-tender Palpation: soft Extremity normal to inspection General Extremety ED: Negative for edema or tenderness General Extremity: Negative for edema Neuro oriented x3, CN's II-XII intact bilaterally and no sensory deficits noted Sensorium / Orientation: alert Motor Exam: strength 5/5 throughout Psych mental status grossly normal Skin no rashes or lesions noted MDM MDM MDM Narrative Medical decision making narrative: PA and lateral chest x-ray was obtained. There are 2 views. On my interpretation, lung arizmendi are clear. There is normal cardiac silhouette. Bony thorax is normal. There is no acute process noted. Radiologist also interpreted the x-ray and agrees. Patient was advised of his findings. Patient was advised that this is most likely a muscular strain. Patient was instructed to take ibuprofen as needed for pain. Patient was instructed use ice to the area. Patient was instructed to follow-up with his primary care physician in 5 to 7 days. Patient understood and was agreeable with the plan. All questions were answered. Radiography Chest X-Ray - ED: 2 View, Read by ED Physician, Read by Radiologist, Normal and No Acute Disease Diagnostic Testing: Clinical Impression(s) from Imaging Studies Chest X-Ray 11/12/21 08:57 IMPRESSION: Normal x-ray examination of the chest. Electronically Signed: Brennan Christy MD at 9:37 EDT , Discharge Plan Triage Chief Complaint: Chest Other ED Provider: Fransico Graf Dx/Rx/DC Orders Clinical Impression: Chest wall muscle strain, Tobacco use Instructions: ED Chest Wall Strain Prescriptions: No Action budesonide-formoterol [Symbicort] 160-4.5 mcg/actuation HFA aerosol inhaler 2 puff INHALATION Q12H Qty: 10.2 1RF albuterol sulfate 90 mcg/actuation HFA aerosol inhaler 1 puff INHALATION Q6H PRN (Reason: shortness of breath or wheezing) Qty: 8.5 3RF (DME) blood pressure monitor Kit See Rx Instructions .ROUTE .MEDSUPPLY Qty: 1 0RF Rx Instructions: Check blood pressure twice a day lisinopril 40 mg tablet 20 mg PO DAILY Qty: 90 3RF aspirin 325 MG tablet 325 mg PO DAILY labetalol 100 mg tablet 100 mg PO BID PRN (Reason: hypertension) Qty: 60 1RF Rx Instructions: Take for Systolic Bp > 150mmHg and Diastolic > 90 mmHg atorvastatin 40 mg tablet 40 mg PO DAILY Qty: 90 3RF gabapentin 600 mg tablet 600 mg PO .Q6 Qty: 120 2RF Primary Care Provider: Alejandro Lincoln Referrals: Alejandro Lincoln MD [Primary Care Provider] - 5-7 Days Disposition Disposition: Home, Self Care
--- NOTE | 2021-11-12 08:57 | RAD_ITS ---
STUDY: X-RAY CHEST REASON FOR EXAM: Male, 46 years old. Cough TECHNIQUE: PA and lateral views of the chest. COMPARISON: 05/19/2019 FINDINGS: Status post anterior cervical discectomy and fusion of the lower cervical spine. The lungs are clear and expanded. There is no demonstrated pleural abnormality. Normal size heart. Normal mediastinum and michael. Normal visualized pulmonary arteries. Normal visualized aortic arch and descending thoracic aorta. Normal visualized thoracic spine. Normal visualized ribs, clavicles, and shoulders. There is no demonstrated abnormality of the visualized soft tissue structures of the upper abdomen. RAD/Chest PA and Lateral IMPRESSION: Normal x-ray examination of the chest. Electronically Signed: Brennan Christy MD at 9:37 EDT ,
== END 2021-11-12 11:47 | disposition home or self-care (01) ==
PROVIDERS: Emergency Provider Emergency Medicine; PCP Internal Medicine; Visit Provider Emergency Medicine
DX: S29.011A Strain of muscle and tendon of front wall of thorax, initial encounter (principal); J44.9 Chronic obstructive pulmonary disease, unspecified; F17.210 Nicotine dependence, cigarettes, uncomplicated; E78.5 Hyperlipidemia, unspecified; I10 Essential (primary) hypertension; Z79.82 Long term (current) use of aspirin; Z79.899 Other long term (current) drug therapy; X58.XXXA Exposure to other specified factors, initial encounter
CPT/HCPCS: 71046; 99282

== ENCOUNTER → 2022-01-21 | Outpatient (CLI) | payer MEDICAID, SELFPAY ==
--- NOTE | 2022-01-21 09:05 | RAD_ITS ---
EXAM: XR RIGHT HIP WITH PELVIS WHEN PERFORMED, 2 OR 3 VIEWS CLINICAL INDICATION: Right Hip Pain TECHNIQUE: Two or three views of the right hip with pelvis when performed. This report was created using [employer] report generation technology. COMPARISON: None. FINDINGS: BONES/JOINTS: No acute abnormality. SOFT TISSUES: Normal. No soft tissue swelling or gas. VASCULATURE: Left iliac artery stent graft is in place. RAD/HIP, UNI W/ Pelvis 2-3 Views IMPRESSION: No acute findings in the pelvis or right hip. Electronically Signed: Isiah Arreaga MD at 7:40 EST ,
--- NOTE | 2022-01-21 09:05 | RAD_ITS ---
EXAM: XR LUMBOSACRAL SPINE, 4 OR 5 VIEWS CLINICAL INDICATION: Lumbar Radiculopathy TECHNIQUE: Frontal, lateral and bilateral oblique views of the lumbar spine. This report was created using [employer] report generation technology. COMPARISON: None. FINDINGS: VERTEBRAE: Loss of the normal lumbar lordosis suggestive of muscle spasm. Mild wedge compression deformity of L3 appears to be chronic. Mild multilevel vertebral body osteophytosis. Mild facet arthropathy lower lumbar level. No spondylolisthesis. DISC SPACES: No significant disc space narrowing. VASCULATURE: Left iliac artery stent graft again seen. GASTROINTESTINAL TRACT: Unremarkable bowel gas pattern. RAD/L/S Spine Min 4 Views IMPRESSION: Findings suggesting muscle spasm. No acute bone or joint abnormality. Electronically Signed: Isiah Arreaga MD at 7:42 EST ,
== END | disposition home or self-care (01) ==
PROVIDERS: PCP Internal Medicine; Referring Provider Internal Medicine; Visit Provider Internal Medicine
DX: M25.551 Pain in right hip (principal); M54.16 Radiculopathy, lumbar region
CPT/HCPCS: 72110; 73502

== ENCOUNTER 2022-02-28 11:00 | Outpatient (RCR) | payer MEDICAID, SELFPAY ==
--- NOTE | 2022-02-14 13:30 | HP.PTEVAL ---
Patient's Visit Information MELBA BRADLEY Jr. is a 46 year old M referred to Physical Therapy by Dr. Alejandro Lincoln MD with a diagnosis of RADICULOPATHY,LUMBAR ,CHRONIC PAIN ,PAIN IN RIGHT HIP. Date of Evaluation: 02/14/22 Physical Therapist: Hakan Reeder, PT, Cert MDT, OCS - Visit Plan Frequency: 2x /Week Duration: 4 Weeks Plan: PT INTERVETIONS INTALLIALY MODALTIES FOR PAIN ,PROGRESS TO GRADE ROM/DLS AND POSTURAL EX'S RIVKA - Subjective This 46 y/o male presents to physical therapy lumbar radiculopathy . Patient has had lumbar pain going up steps developed right leg pain .Pain located right lateral hip lateral leg and left lumbar. Seen Dr did x-rays . Patient needs PT prior to MRI . DR Forbes and recommended too see Dr Robledo. Aggravating factors bending ,standing, walking ,lifting affects ADL's and housework tasks. Alleviating factors bending over and resting. Denies paresthesia/tingling . Bowel/bladder -. Coughing/sneezing/straining: -. Patient pain affects sleeping. The only way patient can walk is bending over. Patient pain affects QOL and function and unable to work. MEDS : Gabepetin for neuropathy. PMH: cervical fusion ,PVD ,stents legs. SOCIAL: single. VOCATION: unemployed - Pain Bilateral Back Pain Intensity (Out of 10): 10 Right Lower Extremity Pain Intensity (Out of 10): 10 Pain Intensity Range: 10 - Objective POSTURE: marked forward posture. GAIT: marked forward posture severely flexed due to unable to extend upright from pain. NEURO: denies paresthesia/tingling , + ANR and myotome weakness right leg ,reflexes L3-4,;LL4-5 ,L5-S1 1/3. LUMBAR ROM: flexion min/mod loss ,extension severe loss ,side glides severe loss right ,mod loss left. FLEXABLITY: severe loss hamstrings dur to pain with SLR. MMT: peak force- quads 8.9,hamstimngs 9.7,hip flexion 5.8 ,GTE /DF 4/5 - Balance/Special Test Scores Oswestry Low Back Score: 44 - Goals Goal 1:: Patient to be I with HEP lumbar spine. Goal Time Frame: 4-6 Weeks Goal 2:: Patient to improve lumbar ROM for function of recovery for ADLS' Goal Time Frame: 4-6 Weeks Goal 3:: Patient to demonstrate 40% improvement with decrease pain and improved function Goal Time Frame: 4-6 Weeks Goal 4:: Patient to improve strength peak force of quads/hams/hip by 10 points or > to improve gait Goal Time Frame: 6-8 Weeks Goal 5:: Patient to improve gait with improved posture 80% of the time with less pain by 40 % Goal 6:: Patient to improve back osestry score by 5 points to improve QOL /function. Goal Time Frame: 6-8 Weeks - Rehabilitation Potential Physical Therapy Diagnosis: Patient has severe pain with marked forward posture with severe pain with extension and pain with flexion with possible HNP /stenosis. with pain with position and motion testing ,myotome weakness RLE ,poor LUMBAR ,+SLR thus benefit from skilled PT and MRI Rehabilitation Potential: Good - Anticipated Interventions Patient/Client Instruction: Educate patient on: Condition, Plan of Care For the Purpose of:: To decrease pain, To increase ROM, To improve muscle performance and motor function, To improve ability to perform ADL's, To increase tolerance to activity/condition/position, To improve ability of physical actions for home/community/work/leisure, To improve gait and locomotor functions, To improve health of tissue, To decrease soft tissue restriction, To increase flexibility/ROM, To improve endurance, To improve balance, To prevent re-injury, To improve tolerance to ADL's Therapeutic Exercise to Include: Strength training, Balance training, Body mechanics, Postural training, Flexibilty training, Active ROM, Dynamic Lumbar Stabilization For the Purpose of:: To decrease pain, To increase ROM, To improve muscle performance and motor function, To increase tolerance to activity/condition/position, To improve ability of physical actions for home/community/work/leisure, To improve gait and locomotor functions, To improve health of tissue, To decrease soft tissue restriction, To increase flexibility/ROM, To prevent re-injury TENS: Yes IF ES: Yes Cryotherapy (ice pack, ice massage): Yes Thermo therapy (hot pack): Yes Ultrasound (thermal/non thermal): Yes For the Purpose of:: To decrease pain, To increase ROM, To improve nutrient delivery to tissue, To improve muscle performance and motor function, To improve health of tissue, To decrease soft tissue restriction Thank you for the opportunity to evaluate your patient. For Medicare and Medicare HMO plans, please review the plan of care and approve it. It will need to be FAXED BACK to us at [phone] for Medicare purposes. For Medicare only, by signing this I certify the plan of care. Please let me know if there are questions or concerns regarding this plan of care. Physician Signature: Date:
--- NOTE | 2022-08-20 10:03 | HP.PT.NRP ---
MELBA BRADLEY Jr. was seen in my office for initial evaluation on 02/14/22. The following Plan of Care was established for this patient: Initial Frequency: 2x /Week Initial Duration: 4 Weeks Patient/Client Instruction: Educate patient on: Condition, Plan of Care For the Purpose of:: To decrease pain, To increase ROM, To improve muscle performance and motor function, To improve ability to perform ADL's, To increase tolerance to activity/condition/position, To improve ability of physical actions for home/community/work/leisure, To improve gait and locomotor functions, To improve health of tissue, To decrease soft tissue restriction, To increase flexibility/ROM, To improve endurance, To improve balance, To prevent re-injury, To improve tolerance to ADL's Therapeutic Exercise to Include: Strength training, Balance training, Body mechanics, Postural training, Flexibilty training, Active ROM, Dynamic Lumbar Stabilization For the Purpose of:: To decrease pain, To increase ROM, To improve muscle performance and motor function, To increase tolerance to activity/condition/position, To improve ability of physical actions for home/community/work/leisure, To improve gait and locomotor functions, To improve health of tissue, To decrease soft tissue restriction, To increase flexibility/ROM, To prevent re-injury TENS: Yes IF ES: Yes Cryotherapy (ice pack, ice massage): Yes Thermo therapy (hot pack): Yes Ultrasound (thermal/non thermal): Yes For the Purpose of:: To decrease pain, To increase ROM, To improve nutrient delivery to tissue, To improve muscle performance and motor function, To improve health of tissue, To decrease soft tissue restriction This patient was last seen in our office . Pertinent comments regarding their Physical therapy will appear below: Patient seen for PT for back and leg pain. Patient had trail PT did not help had MRI and seen by DR Robledo. Plan for pain management. At this point I will be discontinuing this patient from physical therapy. I would be happy to see this patient again in the future if found appropriate by the physician. Thank you! Hakan Reeder, PT, Cert MDT, OCS Balance/Gait/Functional tests - Balance/Special Test Scores Oswestry Low Back Score: 44
== END 2022-02-28 19:00 | disposition home or self-care (01) ==
LOC: PT 11:00
PROVIDERS: PCP Internal Medicine; Referring Provider Internal Medicine; Visit Provider Internal Medicine
DX: M54.16 Radiculopathy, lumbar region (principal); M25.551 Pain in right hip; M54.9 Dorsalgia, unspecified; G89.29 Other chronic pain
CPT/HCPCS: 97035; 97162

== ENCOUNTER → 2022-03-06 | Outpatient (CLI) | payer MEDICAID, SELFPAY ==
[2022-03-06 10:54] LABS: Platelet Count 127 K/mm3 (150-450)
[2022-03-06 11:19] LABS: AST(SGOT) 6 U/L (15-37); Alanine Aminotransfer ALT/SGPT 14 U/L (16-61); Albumin, Serum 3.4 g/dL (3.2-5.0); Alkaline Phosphatase 92 U/L (45-117); Anion Gap 7 (5-15); BUN 3 mg/dL (7-18); BUN/Creat Ratio 3.8 RATIO (10-20); Calcium,Total 8.9 mg/dL (8.5-10.1); Chloride 101 mmol/L (98-107); Creatinine, Serum 0.78 mg/dL (0.70-1.30); EST Glomerular Filtration Rate 112 mL/min (>60); Est Glom Filt Rate - Afr Amer 136 mL/min (>60); Globulin 3.3 g/dL (2.2-4.2); Glucose 78 mg/dL (74-106); Potassium 3.4 mmol/L (3.5-5.1); Protein, Total 6.7 g/dL (6.4-8.2); Sodium Level 137 mmol/L (136-145)
[2022-03-06 11:26] LABS: Valproic Acid (Depakene) Level 76 ug/mL (50-100)
== END | disposition home or self-care (01) ==
LOC: BIMLAB 10:03
PROVIDERS: PCP Internal Medicine; Referring Provider Registered Nurse; Visit Provider Registered Nurse
DX: F31.9 Bipolar disorder, unspecified (principal); F19.10 Other psychoactive substance abuse, uncomplicated; Z79.899 Other long term (current) drug therapy
CPT/HCPCS: 36415; 80053; 80164; 82140; 85049

== ENCOUNTER → 2022-03-15 | Outpatient (CLI) | payer MEDICAID, SELFPAY ==
--- NOTE | 2022-03-15 12:15 | MRI_ITS ---
PROCEDURE: LUMBAR SPINE MRI WITHOUT CONTRAST COMPARISONS: 09/07/2019 CLINICAL INDICATION: Low back pain, right radiculopathy TECHNIQUE: Noncontrast lumbosacral spine MRI study was performed multiple sequences in sagittal and axial planes. FINDINGS: Alignment of the lumbosacral spine is normal. Normal vertebral marrow signal. Normal partially visualized sacroiliac joints. The conus medullaris terminates at L1. No abnormal signal within the visualized cord. L1-L2: Mild disc bulge. Normal spinal canal and neuroforamina. L2-L3: Disc bulge with crowding of both traversing L3 nerve roots in the lateral recesses. No spinal canal or neural foraminal stenosis. L3-L4: Disc bulge with crowding of both traversing L4 nerve roots in the lateral recesses. No spinal canal or neural foraminal stenosis. L4-L5: Mild disc bulge with crowding of both traversing L5 nerve roots in the lateral recesses. Mild right neural foraminal stenosis. No spinal canal stenosis. L5-S1: L5 inferior endplate edema. Disc bulge with crowding of both traversing S1 nerve roots in the lateral recesses. Moderate right and mild left neural foraminal stenosis. No spinal canal stenosis. Normal appearance of the paraspinous muscles. MRI/Spine Lumbar (Routine) IMPRESSION: 1. Moderate right neuroforaminal stenosis at L5-S1. 2. Disc bulge with crowding of the traversing nerve root in the lateral recesses at all levels below L1-2. 3. Similar L5 inferior endplate edema. Electronically Signed: Eriberto Arrington MD at 17:01 EST ,
== END | disposition home or self-care (01) ==
LOC: MRI 12:15
PROVIDERS: PCP Internal Medicine; Visit Provider Orthopaedic Surgery
DX: M51.36 Other intervertebral disc degeneration, lumbar region (principal)
CPT/HCPCS: 72148

== ENCOUNTER 2022-04-10 19:09 | Emergency (ER) | payer MEDICAID, SELFPAY ==
[2022-04-10 19:11] VITALS: BP 202/96; PULSE 107; RESP 17; TEMP 36.6; O2SAT 98; BMI 25.8
--- NOTE | 2022-04-10 20:25 | ED.RN ---
PT STATES HE IS GOING HOME AND WILL F/U WITH HIS DR IN THE MORNING
== END 2022-04-10 20:24 | disposition left against medical advice (07) ==
LOC: ED 20:26
PROVIDERS: PCP Internal Medicine
DX: Z53.21 Procedure and treatment not carried out due to patient leaving prior to being seen by health care provider (principal)

== ENCOUNTER → 2022-05-15 | Outpatient (CLI) | payer MEDICAID, SELFPAY ==
[2022-05-15 13:36] LABS: ALB/GLOB Ratio 1.1 RATIO (0.9-2.4); AST(SGOT) 11 U/L (15-37); Alanine Aminotransfer ALT/SGPT 14 U/L (16-61); Albumin, Serum 3.8 g/dL (3.2-5.0); Alkaline Phosphatase 118 U/L (45-117); Anion Gap 4 (5-15); BUN 5 mg/dL (7-18); BUN/Creat Ratio 6.9 RATIO (10-20); Calcium,Total 9.2 mg/dL (8.5-10.1); Chloride 110 mmol/L (98-107); Creatinine, Serum 0.72 mg/dL (0.70-1.30); EST Glomerular Filtration Rate 123 mL/min (>60); Est Glom Filt Rate - Afr Amer 149 mL/min (>60); Globulin 3.5 g/dL (2.2-4.2); Glucose 96 mg/dL (74-106); Potassium 3.7 mmol/L (3.5-5.1); Protein, Total 7.3 g/dL (6.4-8.2); Sodium Level 142 mmol/L (136-145)
[2022-05-15 16:25] LABS: Absolute Lymphocyte Count 1.92 X10^3/uL (0.83-4.51); Absolute Neutrophil Count 2.5 X10^3/uL (2.0-7.7); Basophil# 0.06 X10^3/uL; Basophil% 1.2 % (0-1); Eosinophil# 0.17 X10^3/uL; Eosinophils% 3.3 % (0-5); Lymphocyte # 1.92 X10^3/ul (0.83-4.51); Lymphocyte % 37.8 % (19-41); Mean Corp Hgb Conc 34.8 g/dL (32-36); Mean Corpuscular Hgb 31.9 pg (27.0-32.0); Mean Corpuscular Volume 91.5 fL (80-94); Mean Platelet Vol. 12.3 fl (6.2-12.0); Monocyte# 0.43 X10^3/uL; Monocyte% 8.5 % (0-10); NRBC Flagged by Analyzer 0 % (0-5); Neutrophil # 2.49 X10^3/uL (2.7-7.7); Platelet Count 139 K/mm3 (150-450); RBC Distribution Width CV 12.8 % (11.6-14.6); RBC Distribution Width SD 43.2 fl (35.1-43.9); Red Blood Count 5.68 M/mm3 (4.6-6.2); White Blood Count 5.1 K/mm3 (4.4-11.0)
[2022-05-15 17:43] LABS: Hemoglobin 18.1 g/dL (13.0-16.5)
[2022-05-16 12:51] LABS: Pathologist Review Reviewed
== END | disposition home or self-care (01) ==
LOC: BIMLAB 11:57
PROVIDERS: PCP Internal Medicine; Referring Provider Registered Nurse; Visit Provider Registered Nurse
DX: F31.9 Bipolar disorder, unspecified (principal); Z79.899 Other long term (current) drug therapy
CPT/HCPCS: 36415; 80053; 82140; 85025

== ENCOUNTER → 2022-05-17 | Outpatient (CLI) | payer MEDICAID, SELFPAY ==
--- NOTE | 2022-05-17 09:55 | RAD_ITS ---
INDICATION: Left Knee Pain EXAMINATION/TECHNIQUE: X-RAY - LEFT XR Knee 3 Views COMPARISON: None. FINDINGS: SOFT TISSUES: No soft tissue swelling or gas. No radiopaque foreign body. BONES/JOINTS: No acute fracture or subluxation.. Normal alignment. Preservation of the joint space.. No sclerotic or destructive changes observed. RAD/Knee 3 Views IMPRESSION: No acute bony injury. Electronically Signed: Von Junior DO at 23:43 EST ,
== END | disposition home or self-care (01) ==
LOC: MTRAD 09:51
PROVIDERS: PCP Internal Medicine; Referring Provider Internal Medicine; Visit Provider Internal Medicine
DX: M25.562 Pain in left knee (principal)
CPT/HCPCS: 73562

== ENCOUNTER 2022-05-20 08:22 | Outpatient (RCR) | payer MEDICAID, SELFPAY ==
--- NOTE | 2022-05-31 07:16 | HP.OTFCE_ITS ---
Floor (Occasional 1-33% of Day): 15# Floor (Frequent 34-66% of Day): NA Floor (Constant 67-100% of Day): NA Floor PDL: Sedentary-Light Knee (Occasional 1-33% of Day): 25# Knee (Frequent 34-66% of Day): NA Knee (Constant 67-100% of Day): NA Knee PDL: Light Waist (Occasional 1-33% of Day): 25# Waist (Frequent 34-66% of Day): NA Waist (Constant 67-100% of Day): NA Waist PDL: Light-Medium Shoulder (Occasional 1-33% of Day): 25# Shoulder (Frequent 34-66% of Day): NA Shoulder (Constant 67-100% of Day): NA Shoulder PDL: Light-Medium Overhead (Occasional 1-33% of Day): 10# Overhead (Frequent 34-66% of Day): NA Overhead (Constant 67-100% of Day): NA Overhead PDL: Sedentary Comments: lifting from floor level Sedentary- Light Physical Demand level. lifting from knee level Light Physical Demand Level. lifting from waist level Light-Medium Physical Demand Level. lifting from shoulder level Light-Medium Physical Demand level. lifting from overhead sedentary physical demand level. pt has increase pain with lifting and could not lift on frequent or constant ability Bending: Occasional Ability (1-33% of day) Squatting: Occasional Ability (1-33% of day) Kneeling: No Ablility (0% of day) Comments: pt use of BUE heavily not functional kneeling Reaching out: Frequent Ability (34-66% of day) Comments: while sitting Reaching up: Occasional Ability (1-33% of day) Comments: while sitting Sitting: Occasional Ability (1-33% of day) Comments: with shifting body weight Walking: Occasional Ability (1-33% of day) Standing: Occasional Ability (1-33% of day) Comments: with shifting body weight Duration Sedentary Sedentary Light Light Light Medium Medium Medium Heavy Very Heavy Heavy Occasional (0-33% of day) Frequent (34-66% of day) Constant (67-100% of day) 10 # Negligible Negligible 15 # 8 # Negligible 20 # 10# Negli. 35 # 18 # 7 # 50 # 25 # 10 # 75 # 100 # >100 # 38 # 50 # >50 # 15 # 20 # >20 # Weight:: 75.75 kg Hand Dominance: right Medical History Including Restrictions: This 46 year old male arrived for FCE with dx of intervertebral disc degeneration, lumbar region with sciatica right side. pt states he had leg and back pain initiated in 2017. pt states his family doctor put pt on lifting restrictions of (20#) pt states this was leg and back pain. pt states his restrictions were released. pt attempted to return to work but unable to perform tasks required due to increase back/leg pain and weakness. pt does not exercise on a regular basis. pt smoker and attempting to quick cue to hemoglobin issues Diagnoses: HTN dx in 2017 ( trying to control with medication). Left knee pain. Spondylosis of lumbar spine. Chronic Back pain. Lumbar Radiculopathy. peripheral artery occlusion disease. Cervical radiculopathy. Sciatica right side. Bleeding ulcer. COPD 2016. MRI 2020. 1. Moderate right neuroforaminal stenosis at L5-S1. 2. Disc bulge with crowding of the traversing nerve root in the lateral. recesses at all levels below L1-2. 3. Similar L5 inferior endplate edema. Symptoms: low back pain. right hip pain. left knee pain. bilateral leg weakness. bilateral legs go tingling and numb. left leg neuropathy Pain: pt does not take pain medication. Upon arrival pain 4/10 at end of session pt reported pain in his back and knee 9/10 pain. Ck pain scale short form. 31/77. interpretation: the higher the score, the higher the pain level. The maximum score an individual can reach on the MPQ is 78. According to the questio nnaire, a person with a score of 0 effectively does not experience pain. A person with a high score, nearer to the highest score of 78, more than likely deals with chronic pain daily. 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 pt started working for [employer] in 1991 right out of high school. pt states he left in 2017 and returned but due to his health issues he was unable to perform his job. pt states last he attempted to work was August/September of 2021. pt states he was unable to tolerated working part-time 4 hour and 2 hours a day but pt was unable to tolerate Behavioral: pt was cooperative throughout assessment. ADLS: Pt states he lives in [place] but stays on [address]st floor. pt has tub shower but takes bath because he can not stand to take shower ( since June 2021). Pt lives with his and three children- ages ( 14, 12, 19). Pt states his children and his help with all daily tasks. pt states he needs assistance when doing dishes- pt states just standing in one spot is more painful . Pt drives [place]. pt states his does help with all tasks when he is to painful to perform them. ROM: BUE ROM is WNL. LUMBAR ROM: flexion min/mod loss ,extension severe loss ,side glides severe loss right ,mod loss left. BLE ROM is WFL. pt reports incr ease garrison with increase movement of LE and lumbar motion. 8/10 pain Strength: [employer] peak force in lbs. right shoulder 10# left 7#. right shoulder ext. 14# left 15#. right biceps 23# left 21#. right triceps 15# eft 19#. right hip flexor 9# left 10#. right quad 14# left 11#. right hamstring 14# left 14#. pt demo with generalized weakness Right Camera Systems Engineer Strength Average: 47.33 Right Camera Systems Engineer Strength Percentile: <1.1% Left Camera Systems Engineer Strength Average: 60.00 Left Camera Systems Engineer Strength Percentile: 1.4% Right Lateral Pinch Average: 10.66 Right Lateral Pinch Percentile: <10% Left Lateral Pinch Average: 12.66 Left Lateral Pinch Percentile: <10% Right Tripod Pinch Average: 10.00 Right Tripod Pinch Percentile: <10% Left Tripod Pinch Average: 10.00 Left Tripod Pinch Percentile: <10% Comments: pt demo with a decrease in bilateral hand/pinch strength for his age (ages 45-49). mean finance attorney for age right 120# left 106# Sensation: tingling in legs and feet. at times numbness. denies in hands and fingers Fine Motor: denies issues - reports ind. with buttons, zippers and fasteners. Balance: functional reach test 7. Interpretation: A score of 6 or less indicates a significant. increased risk for falls. A score between 6-10 inches indicates a. moderate risk for falls. pt did not have LOB during assessment Bending: pt demo the ability to bend forward 3/3x with use of external support- pt reported 8-9/10 and is unable to perform more. heart rate 95. pt can bend forward on low occasional ability Squatting: pt demo the ability to squat 3/3x with external support using bilateral UE and heavily leaning on external device. pt demo low occasional ability to squat with use of external support. Kneeling: pt demo the ability to kneel 3/3x with increase pain in low back 8- 11/24 with use of external supportusing bilateral UE and heavily leaning on external device. pt demo low occasional ability to squat with use of external support. Reaching out/up: pt performed while sitting. reach out 3/3x, 10/10x and 10/10x rapidly heart rate at end 83. pt can reach out on frequent ability. reach up 3/3x, 6/10, pt felt popping and cracking in his neck/shoulder blades. pt did not want to do any more. pt had increase in pain 06/24- 09/23 with reaching up in neck/shoulder. pt can reach up on occasional ability Walking: pt ambulated with an antalgic gait pattern and hips in external rotation, knees bend and forward flexed posture-. pt ambulation speed in slow and step length diminished. Pt total ambulation distance 300 feet. pt ambulated short distance and required a rest. pt can ambulate on occasional ability. Standing: pt demo standing for 4 min mostly wt on left LE vs LE equally. pt c/o low back and right hip pain at 11/24. Pt reports difficult to decrease pain with position of sitting/lying or walking. pt can stand on occasional ability with given opportunity to shift body weight. Sitting: pt demo the ability to sit for 45 min with demo discomfort as shifting body weight-. pt can sit on frequent ability and freedom to shifting body weight. Climbing Stairs: pt demo the ability to ascent 4 steps with reciprocal step pattern and than backed down steps instead of turning around and descending steps forward. pt unsafe on stairs at this time. pt reported low back pain and knee pain 11/24. Floor Lift: pt demo the ability to lift 15# maximally with poor lifting mechanics. pt had increase in low back and left knee. 11/24. pt verbalized more pain with left knee so he was attempting to lift box from this level without bending his left knee. Knee Lift: pt demo the ability to lift 25# maximally with poor lifting mechanics. pt had increase in low back and left knee. 9/10. pt verbalized more pain with left knee so he was attempting to lift box from this level without bending his left knee. Waist Lift: pt demo the ability to lift 25# maximally with poor lifting mechanics. Shoulder Lift: pt demo the ability to lift 25# maximally with poor lifting mechanics. Overhead Lift: pt demo the ability to lift 10# overhead with fair lifting mechanics. Carrying: pt reported increase back and left knee pain. pt reporting pain 8/10 following assessment. Comments: pt reported increase in neck/back and knee pain throughout session.
--- NOTE | 2022-05-31 07:16 | HP.OTFCE.D ---
FCE D/C Summary - Discharge MELBA BRADLEY Jr. was seen for a one time visit for an FCE on 05/20/22 and is discharged.
== END 2022-05-20 19:00 | disposition home or self-care (01) ==
LOC: OT 08:22
PROVIDERS: PCP Internal Medicine; Referring Provider Internal Medicine; Visit Provider Internal Medicine
DX: M51.36 Other intervertebral disc degeneration, lumbar region (principal); M54.31 Sciatica, right side
CPT/HCPCS: 97750

== ENCOUNTER → 2022-11-14 | Outpatient (CLI) | payer MEDICAID, SELFPAY ==
[2022-11-14 16:52] LABS: Absolute Lymphocyte Count 2.22 X10^3/uL (0.83-4.51); Absolute Neutrophil Count 3.6 X10^3/uL (2.0-7.7); Basophil# 0.07 X10^3/uL; Eosinophil# 0.25 X10^3/uL; Eosinophils% 3.7 % (0-5); Hematocrit 49.8 % (40-54); Hemoglobin 17.4 g/dL (13.0-16.5); Lymphocyte # 2.22 X10^3/ul (0.83-4.51); Lymphocyte % 33.2 % (19-41); Mean Corp Hgb Conc 34.9 g/dL (32-36); Mean Corpuscular Hgb 31.5 pg (27.0-32.0); Mean Corpuscular Volume 90.2 fL (80-94); Mean Platelet Vol. 11.7 fl (6.2-12.0); Monocyte# 0.51 X10^3/uL; Monocyte% 7.6 % (0-10); NRBC Flagged by Analyzer 0 % (0-5); Neutrophil # 3.62 X10^3/uL (2.7-7.7); Neutrophil % 54.2 % (47-70); Platelet Count 164 K/mm3 (150-450); RBC Distribution Width CV 13.2 % (11.6-14.6); Red Blood Count 5.52 M/mm3 (4.6-6.2); White Blood Count 6.7 K/mm3 (4.4-11.0)
[2022-11-14 17:17] LABS: Anion Gap 4 (5-15); BUN 4 mg/dL (7-18); BUN/Creat Ratio 5.5 RATIO (10-20); Calcium,Total 9.1 mg/dL (8.5-10.1); Chloride 108 mmol/L (98-107); Creatinine, Serum 0.73 mg/dL (0.70-1.30); EST Glomerular Filtration Rate 122 mL/min (>60); Est Glom Filt Rate - Afr Amer 147 mL/min (>60); Glucose 83 mg/dL (74-106); Potassium 3.6 mmol/L (3.5-5.1); Sodium Level 140 mmol/L (136-145)
[2022-11-14 17:29] LABS: Cholesterol 126 mg/dL (200); High Density Lipoprotein 39 mg/dL; Triglycerides 83 mg/dL; Very Low Density Lipoprotein 17 mg/dL (5-40)
== END | disposition home or self-care (01) ==
LOC: BIMLAB 16:10
PROVIDERS: PCP Internal Medicine; Referring Provider Internal Medicine; Visit Provider Internal Medicine
DX: I10 Essential (primary) hypertension (principal); E78.5 Hyperlipidemia, unspecified
CPT/HCPCS: 36415; 80048; 80061; 85025

== ENCOUNTER → 2023-04-28 | Outpatient (CLI) | payer MEDICARE, MEDICAID, SELFPAY ==
--- OUTSIDE RECORDS SUMMARY | 2023-04-28 10:37 | XMS RPT_ITS | CCD ---
Author Name Unknown Address [address] [place] [address] Organization [facility] Care Team Providers Care Meteorological Engineer Name Role Phone SIENNA FLORIAN Unavailable Unavailable ROBYN GRANT () Unavailable Unav ailable ROBYN GRANT () Unavailable Unav ailable SUSAN RAY Unavailable Unavailable SIENA SUSAN D Unavailable Unavailable Oleghe, Efewongbe B Unavailable Unavailable Ayaan Keita Unavailable Unavailable Sina Paul MD Primary Care Provider [phone] Sina Paul MD Primary Care Provider [phone] SUSAN RAY Attending Unavailable OLEGHE, EFEWONGBE B Primary Care Unavailable SIENA SUSAN D Referring Unavailable OLEGHE, EFEWONGBE B Primary Care Unavailable SIENA SUSAN D Referring Unavailable OLEGHE, EFEWONGBE B Primary Care Unavailable RAY SUSAN D Referring Unavailable OLEGHE, EFEWONGBE B Primary Care Unavailable RAY SUSAN D Referring Unavailable RAY, SUSAN D Attending Unavailable OLEGHE, EFEWONGBE B Primary Care Unavailable RAY, SUSAN D Referring Unavailable OLEGHE, EFEWONGBE B Primary Care Unavailable RAY, SUSAN D Referring Unavailable OLEGHE, EFEWONGBE B Primary Care Unavailable SIENA SUSAN D Referring Unavailable Allergies Allergy Classification Reported Allergen(s) Allergy Type Date of Onset Reaction(s) Facility (5 sources) topiramate; Translations: [TOPIRAMATE] Drug Allergy 04-24-2020 Mental Status Change [facility] Work Phone: (5 sources) valbenazine; Translations: [VALBENAZINE] Drug Allergy 04-24-2020 Other: See Comments [facility] Work Phone: Medications Completed/Discontinued Medications Medication Drug Class(es) Dates Sig (Normalized) Sig (Original) [id number] 200 actuat albuterol 0.09 mg/actuat metered dose inhaler (4 sources) beta2-Adrenergic Agonist Start: 05-22-2016 take 2 puff(s) by inhalation every four hours as needed for wheezing albuterol HFA (VENTOLIN HFA) 90 mcg/actuation inhaler Indications: Wheezing Inhale 2 Puffs as instructed every 4 hours as needed for Wheezing/Shortnes s of Breath. 1 Inhaler 2 05/22/2016 Active Problems Active Problems Problem Classification Problem Date Documented Da te Episodic/Chronic Chronic obstructive pulmonary disease and bronchiectasis (1 source) Chronic obstructive lung disease; Translations: [COPD (chronic obstructive pulmonary disease)] Chronic Coronary atherosclerosis and other heart disease (1 source) Coronary arteriosclerosis; Translations: [CAD (coronary artery disease)] Chronic Developmental disorders (4 sources) Intellectual disability; Translations: [Unspecified intellectual disabilities] 05-22-2016 Chronic Diabetes mellitus without complication (1 source) Diabetes mellitus; Translations: [Diabetes] Chronic Disorders of lipid metabolism (4 sources) Hyperlipidemia; Translations: [Hyperlipidemia, unspecified] 07-03-2016 Chronic Essential hypertension (5 sources) Hypertensive disorder; Translations: [Essential (primary) hypertension] 07-19-2016 Chronic Occlusion or stenosis of precerebral arteries (1 source) Bilateral stenosis of carotid arteries; Translations: [Occlusion and stenosis of bilateral carotid arteries] Chronic Peripheral and visceral atherosclerosis (10 sources) Peripheral vascular disease, unspecified; Translations: [Atherosclerosis of cachil dehe arteries of extremities with intermittent claudication, bilateral legs] Onset: 10-29-2016 11-25-2016 Chronic Residual codes; unclassified (4 sources) Tobacco use and exposure - finding; Translations: [Tobacco use] 05-22-2016 Episodic Spondylosis; intervertebral disc disorders; other back problems (2 sources) Cervical arthritis; Translations: [Cervical radiculopathy] Chronic Unclassified (1 source) Pain, unspecified; Translations: [Pain, unspecified] Onset: 10-21-2016 Unclassified (1 source) Unknown / UNK(Unknown) Onset: 10-29-2016 Past or Other Problems Problem Classification Problem Date Documented Da te Episodic/Chronic Abdominal pain (4 sources) Epigastric pain; Translations: [Epigastric pain] Onset: 09-16-2016 09-16-2016 Episodic Spondylosis; intervertebral disc disorders; other back problems (2 sources) Low back pain; Translations: [Neck pain] Episodic NEGATED: Highlighted row has not occurred!Residual codes; unclassified (14 sources) Disease Episodic Results Test Name Value Interpretation Reference Range Facil ity Vital Signs Date Time Vital Sign Value Performing Clinician Faci lity 09-10-2022 16:00-0400 Diastolic blood pressure 84 mm[Hg] Susan Ray DO Work Phone: [facility] 09-10-2022 16:00-0400 Heart rate 94 /min Susan Ray DO Work Phone: [facility] 09-10-2022 16:00-0400 SaO2% (BldA) [Mass fraction] 97 % Susan Ray DO Work Phone: [facility] 09-10-2022 16:00-0400 Systolic blood pressure 114 mm[Hg] Susan Ray DO Work Phone: [facility] 10-09-2021 10:33-0400 Body height 176 cm Susan Ray DO Work Phone: [facility] 10-09-2021 10:33-0400 Body weight 71.22 kg Susan Ray DO Work Phone: [facility] 10-09-2021 10:33-0400 Diastolic blood pressure 87 mm[Hg] Susan Ray DO Work Phone: [facility] 10-09-2021 10:33-0400 Heart rate 86 /min Susan Ray DO Work Phone: [facility] 10-09-2021 10:33-0400 SaO2% (BldA) [Mass fraction] 97 % Susan Ray DO Work Phone: [facility] 10-09-2021 10:[id number] Systolic blood pressure 123 mm[Hg] Susan Ray DO Work Phone: [facility] Encounters Encounter Date Encounter Type Care Provider Facility Start: 09-10-2022 End: 09-12-2022 ambulatory SINA PAUL Facility:[facility] Start: 09-10-2022 End: 09-12-2022 Patient encounter procedure Susan Ray DO Work Phone: Vascular Surgery Procedures Date Procedure Procedure Detail Performing Clinician Start: 04-28-2020 Colonoscopy Susan Francesco tejeda DO Work Phone: Start: 06-26-2016 Adult depression scr eening assessment Susan Ray DO Work Phone: History of Cath Sten t Placement Number Of Stents Placed: Sina Paul Plan of Treatment Date Care Activity Detail Author Start: 05-26-2023 LIPID SCREEN LIPID SCREEN [facility] Start: 11-15-2022 Influenza vaccination [facility] Start: 03-17-2022 DEPRESSION ASSESSMENT DEPRESSION ASSESSMENT [facility] Start: 11-15-2021 Influenza vaccination INFLUENZA (#1) [facility] Start: 04-28-2021 Colonoscopy COLONOSCOPY [facility] Start: 04-28-2021 COLORECTAL CANCER SCREENING COLORECTAL CANCER SCREENING [facility] Start: 12-18-2019 DIABETES SCREEN DIABETES SCREEN [facility] Start: 2018 COLOGUARD (FIT-DNA) COLOGUARD (FIT-DNA) [facility] Start: [address] COLONOGRAPHY [facility] Start: 2018 FECAL OCCULT BLOOD FECAL OCCULT BLOOD [facility] Start: 2018 SIGMOIDOSCOPY SIGMOIDOSCOPY [facility] Start: 10-25-2017 ANNUAL PCP TEAM CHRONIC DISEASE VISIT ANNUAL PCP TEAM CHRONIC DISEASE VISIT [facility] Start: 06-26-2017 Adult depression screening assessment DEPRESSION SCREENING [facility] Start: 1992 Urine microalbumin profile DTAP,TDAP,TD (1 - Tdap) [facility] Start: 07-02-1991 ANNUAL PCP TEAM CHRONIC DISEASE VISIT ANNUAL PCP TEAM CHRONIC DISEASE VISIT [facility] Start: 07-02-1991 BP CONTROLLED (<130/80) BP CONTROLLED (<130/80) [facility] Start: 07-02-1991 HEPATITIS C SCREENING HEPATITIS C SCREENING [facility] Start: 07-02-1991 HIV SCREENING HIV SCREENING [facility] Start: 07-02-1979 PNEUMOCOCCAL (1 - PCV) PNEUMOCOCCAL (1 - PCV) [facility] ic Start: 1973 COVID-19 VACCINE (#1) COVID-19 VACCINE (#1) [facility] Start: 1973 HEPATITIS B (1 of 3 - 3-dose series) HEPATITIS B (1 of 3 - 3-dose series) [facility] End: 10-09-2022 [facility] Vascular Lab Routine Peripheral arterial disease (HCC) 1 Occurrences starting 10/09/2021 until 10/09/2022 [facility] Work Phone: Payers Date Payer Category Payer Medicaid [place] [employer] [id number] 2022-Present [phone] [address] [facility] [address] [place] [address] Medicaid [id number] 2002 Medicaid [place] [id number] 2002-Present [phone] [address] [facility] [place] [address] Medicaid [id number] 2002 Medicaid [id number] Social History Date Type Detail Facility Start: 11-14-2020 Tobacco smoking stat us ALIS Ex-smoker [facility] End: 08-13-2020 History of tobacco use Current smoker [facility] End: 08-13-2020 History of tobacco use Cigarette Smoker [facility] End: 08-13-2020 History of tobacco use Cigar Smoker [facility] Start: 11-14-2020 End: 09-10-2022 Cigarettes smoked current (pack per day) - Reported 1 [facility] Start: 11-14-2020 End: 09-10-2022 Tobacco use and exposure Smokeless tobacco non-user [facility] Start: 11-14-2020 End: 09-10-2022 Alcohol intake Current non-drinker of alcohol (finding) [facility] Start: 1975 Sex Assigned At Not on file [facility] Start: 10-09-2021 End: 09-10-2022 Tobacco smoking status NHIS Smokes tobacco daily [facility] Start: 09-10-2022 Tobacco use panel [facility] National Score (1-100), lower number is lower risk 57 [facility] NEGATED: Highlighted row - - [facility]cn[facility]kc[facility] Work Phone: Functional Status Date Assessment Result Facility NEGATED: Highlighted row Functional performance Functional status health issues are not documented Disease [facility]Cwmjrm[facility]ul[facility]wf[facility] Work Phone: Mental Status Date Assessment Result Facility NEGATED: Highlighted row Cognitive function [Interpretation] Cognitive status health issues are not documented Disease [facility]Lbkrbjdhgmmd-Pxf man Work Phone: Clinical Notes 09-26-2021 to 09-10-2022 Susan Ray DO - 09/10/2022 4:47 PM EDTBSusan tejeda DO - 09/10/2022 12:00 AM EDTTelephone Encounter - Ana Gooden - 06/18/2022 9:59 AM EDT Note Date & Type Note Facility 09-10-2022 Note HNO ID: [id number] Author: Susan Ray DO Service: ? Author Type: Physician Type: Progress Notes Filed: 09/28/2022 2:18 PM Note Text: This office note has been dictated. Susan Ray DO [facility] 09-10-2022 History of Presen t illness Narrative This office note has been dictated. Susan Ray DO NAME: KIRK [facility] NO: [id number] DATE OF SERVICE: 09/10/2022 Subjective: Mr. Bradley is here to follow up on peripheral arterial disease with a history of iliac intervention. He denies any significant claudication. He does have significant back pain, for which he is following up with a spine surgeon as well as pain management. Objective: His vital signs are stable. He is in no distress. He has palpable PTs bilaterally. No significant lower extremity edema. His PVRs are normal and his stents are widely patent. Assessment/Plan: Peripheral arterial disease. Discussed the findings with Mr. Bradley. Recommend that he follow up with me in a year with repeat imaging, or sooner with any concerns. Susan Ray D.O. KB/089 Audio #: [id number] Date Dictated: 09/10/2022 14:39:18 Date Typed: 09/13/2022 06:04:16 Date Revised: documented in this encounter [facility] 09-10-2022 Note HNO ID: [id number] Author: Susan Ray DO Service: Vascular Surgery Author Type: Physician Type: Progress Notes Filed: 09/16/2022 8:58 AM Note Text: NAME: CARLOS BRADLEY JR[facility] NO: [id number] DATE OF SERVICE: 09/10/2022 Subjective: Mr. Bradley is here to follow up on peripheral arterial disease with a history of iliac intervention. He denies any significant claudication. He does have significant back pain, for which he is following up with a spine surgeon as well as pain management. Objective: His vital signs are stable. He is in no distress. He has palpable PTs bilaterally. No significant lower extremity edema. His PVRs are normal and his stents are widely patent. Assessment/Plan: Peripheral arterial disease. Discussed the findings with Mr. Bradley. Recommend that he follow up with me in a year with repeat imaging, or sooner with any concerns. Susan Ray D.O. KB/089 Audio #: [id number] Date Dictated: 09/10/2022 14:39:18 Date Typed: 09/13/2022 06:04:16 Date Revised: [facility] 06-18-2022 Miscellaneous Notes Patient calling with concerns of left leg pain x 3 months. Medial knee is sore and tender Reports pain from knee to ankle. Aggravated by crouching or bending knee longer than 30 seconds. Repositioning and elevating helps, does not report pain with standing or walking. Has see PCP for the pain, and xray obtained r/o arthritis per patient. He denies swelling to the area, Patient scheduled for testing on 06/27/22 and f/u on 08/06/22 with provider Advised patient to avoid positions that cause increased symptoms and to be seen for any new or worsening symptoms. Patient is agreeable with the plan documented in this encounter [facility] 10-09-2021 Note HNO ID: [id number] Author: Susan Ray DO Service: Vascular Surgery Author Type: Physician Type: Progress Notes Filed: 10/15/2021 4:41 PM Note Text: NAME: CARLOS BRADLEY JR[facility] NO: [id number] DATE OF SERVICE: 10/09/2021 Subjective: Mr. Bradley is here to follow up on iliac artery stenting and peripheral arterial disease. Overall, he denies any lower extremity claudication. Since our last visit, he has lost approximately 50 pounds. He has been more active and working. He has a new job where he is more active than sitting. Overall, he is doing very well. Objective: His vital signs are stable. He is in no distress. He has palpable PT pulses bilaterally. Reviewed his duplex. He has no significant stenosis. His stents are widely patent. Assessment/Plan: Peripheral arterial disease. Recommend that Carlos follow up with me in a year, or sooner with any concerns. Continue taking his aspirin and antiplatelet therapy, cholesterol and blood pressure control. He will call and follow up sooner with any concerns. He did have some dizziness with posture changes. If he continues to have that, I did place an order for a carotid duplex and he may benefit from repeating his carotid duplex, as he does have peripheral arterial disease and he returned to smoking. We discussed the importance of smoking cessation. Otherwise, he will follow up with me in a year, or sooner. Susan Ray D.O. KB/089 Audio #: [id number] Date Dictated: 10/09/2021 09:15:19 Date Typed: 10/15/2021 09:37:33 Date Revised: [facility] 10-09-2021 History of Presen t illness Narrative NAME: CARLOS BRADLEY JR[facility] NO: [id number] DATE OF SERVICE: 10/09/2021 Subjective: Mr. Bradley is here to follow up on iliac artery stenting and peripheral arterial disease. Overall, he denies any lower extremity claudication. Since our last visit, he has lost approximately 50 pounds. He has been more active and working. He has a new job where he is more active than sitting. Overall, he is doing very well. Objective: His vital signs are stable. He is in no distress. He has palpable PT pulses bilaterally. Reviewed his duplex. He has no significant stenosis. His stents are widely patent. Assessment/Plan: Peripheral arterial disease. Recommend that Carlos follow up with me in a year, or sooner with any concerns. Continue taking his aspirin and antiplatelet therapy, cholesterol and blood pressure control. He will call and follow up sooner with any concerns. He did have some dizziness with posture changes. If he continues to have that, I did place an order for a carotid duplex and he may benefit from repeating his carotid duplex, as he does have peripheral arterial disease and he returned to smoking. We discussed the importance of smoking cessation. Otherwise, he will follow up with me in a year, or sooner. Susan Ray D.O. KB/089 Audio #: [id number] Date Dictated: 10/09/2021 09:15:19 Date Typed: 10/15/2021 09:37:33 Date Revised: documented in this encounter [facility] 09-26-2021 Miscellaneous Notes Spoke with provider on the phone, no additional recommendations from vascular Patient is scheduled for testing and f/u appt with our office Encounter closed Scheduled patient for Sooner testing and follow up with dr. Ray at the [place] office. Patient calling with concerns of dizziness when sitting in a squatting position Reports feeling off balance. The longer he squats the worse it is. He is stumbling with standing and cant walk. Reports feeling days and confused Called patient to triage symptoms, 2 weeks ago, she has seen PCP HTN increased 140/90 40mg of lisinopril Was sick 09/05 fever diarrhea Low BP after Seen PCP. Slightly dehydrated Decreased dose of lisinopril 20mg Can bend over and feels fine. Orthostatic BP performed at PCP office Reports a little less than a pack a day Advised he should contact his PCP with updates regarding his above concerns. Patient is due for f/u with our office in which advised he needs to schedule. He tried to schedule in [place] but can not be seen until December. Please advise if any other recommendations documented in this encounter [facility] documented [facility] this [facility] Diagnosis Peripheral arterial disease (HCC)- Primary Peripheral vascular disease, unspecified [facility] Outpatient Procedure (Routine) - Pending Review Specialty Diagnoses / Procedures Referred By Anay arnold Referred To Contact [facility] [place] Diagnoses Peripheral arterial disease (HCC) Procedures PVR LEG BONNY [facility]AS LAB NON-INVASIVE PHYSIOLOGIC STUDY EXTREMITY 3 Susan Russell DO [address] [place] [address] [facility] [place] [address] [place] [address] Referral ID Status Reason Start Date Expiration Date Visits Requested Visits Authorized [id number] Pending Review Auto-Generat ed Referral 10/09/2021 10/09/2022 1 1 * Outpatient Procedure (Routine) - Pending Review Specialty Diagnoses / Procedures Referred By Anay arnold Referred To Contact [facility] Diagnoses Peripheral arterial disease (HCC) Procedures US ABD AORTA COMPLETE VAS LAB DUP-SCAN AORTA IVC ILIAC VASCL/BPGS COMPLETE Susan Ray, DO [address] [place] [address] [facility] [address] [address] Referral ID Status Reason Start Date Expiration Date Visits Requested Visits Authorized [id number] Pending Review Auto-Generat ed Referral 10/09/2021 10/09/2022 1 1 * Outpatient Procedure (Routine) - Pending Review Specialty Diagnoses / Procedures Referred By Contac t Referred To Contact [facility] Diagnoses Bilateral carotid artery stenosis Procedures US CAROTID ARTERIES BONNY [facility] DUPLEX SCAN EXTRACRANIAL ART COMPL BI STUDY Susan Ray DO [address] [place] [address] [facility] [address] [address] Referral ID Status Reason Start Date Expiration Date Visits Requested Visits Authorized [id number] Pending Review Auto-Generat ed Referral 10/09/2021 10/09/2022 [address] [facility] for referral (narrative)* Outpatient Procedure (Routine) - Authorized Specialty Diagnoses / Procedures Referred By Contac t Referred To Contact [facility] [place] Diagnoses Peripheral arterial disease (HCC) Procedures US ABD AORTA COMPLETE VAS LAB DUP-SCAN AORTA IVC ILIAC VASCL/BPGS COMPLETE Susan Ray DO [address] [place] [address] [facility] [address] [address] Referral ID Status Reason Start Date Expiration Date Visits Requested Visits Authorized [id number] Authorized Auto-Generat ed Referral 09/10/2022 09/10/2023 1 1 * Outpatient Procedure (Routine) - Authorized Specialty Diagnoses / Procedures Referred By Contac t [facility] Diagnoses Peripheral arterial disease (HCC) Procedures PVR LEG [facility] NON-INVASIVE PHYSIOLOGIC STUDY EXTREMITY 3 Susan Russell DO [address] [place] [address] [facility] [address] [place] [address] Referral ID Status Reason Start Date Expiration Date Visits Requested Visits Authorized [id number] Authorized Auto-Generat ed Referral 09/10/2022 09/10/2023 1 1 [facility] Summary Purpose Family History No Family History Records FoundNo Family History Records FoundNo Family History Records FoundNo Family History Records Found Advance Directives No Advanced Directives Records FoundDocuments on File Type Date Recorded Patient Surfacer Expl anation Advance Directive(s) 04/25/2020 10:57 AM Advance Directive(s) 12/17/2016 6:53 AM Advance Directive(s) 10/21/2016 1:43 PM Advance Directive(s) 09/23/2016 9:10 AM Documents on File Type Date Recorded Patient Surfacer Expl anation Advance Directive(s) 04/25/2020 10:57 AM Advance Directive(s) 12/17/2016 6:53 AM Advance Directive(s) 10/21/2016 1:43 PM Advance Directive(s) 09/23/2016 9:10 AM Additional Source Comments (unrecognized sect ion and content) No Status Records FoundNo Status Records FoundNo Status Records FoundNo Status Records Found INFORMATION SOURCE (unrecogn ized section and content) DATE CREATED AUTHOR AUTHOR'S ORGANIZ ATION 12/25/2018 [facility] DATE CREATED AUTHOR AUTHOR'S ORGANIZ ATION 05/16/2020 [facility] DATE CREATED AUTHOR AUTHOR'S ORGANIZ ATION 09/28/2022 [facility] Source Comments (unrecognize d section and content) In the event this informatio n is protected by the Federal Confidentiality of Alcohol and Drug Abuse Patient Records regulations: The Federal rules restrict any use of the information to criminally investigate or prosecute any alcohol or drug abuse patient.[facility] the event this information is protected by the Federal Confidentiality of Alcohol and Drug Abuse Patient Records regulations: The Federal rules restrict any use of the information to criminally investigate or prosecute any alcohol or drug abuse patient.[facility] Center[facility] the event this information is protected by the Federal Confidentiality of Alcohol and Drug Abuse Patient Records regulations: The Federal rules restrict any use of the information to criminally investigate or prosecute any alcohol or drug abuse patient.[facility] Center[facility] the event this information is protected by the Federal Confidentiality of Alcohol and Drug Abuse Patient Records regulations: The Federal rules restrict any use of the information to criminally investigate or prosecute any alcohol or drug abuse patient.[facility] Reason for Visit (unrecogniz ed section and content) Reason Comments Established Patient Reason Comments Patient Update Left knee pain Reason Comments Follow Up Care Teams (unrecognized sec tion and content) Meteorological Engineer Relationship Specialty Start Date End Date Sian Paul MD [address] [place], [place] [id number] PCP - General Internal Medicine 04/25/20 Meteorological Engineer Relationship Specialty Start Date End Date Sina Paul MD [address] [place], [place] [id number] PCP - General Internal Medicine 04/25/20 Meteorological Engineer Relationship Specialty Start Date End Date Sina Paul MD [address] [place] [address] PCP - General Internal Medicine 04/25/20 FOR RECORDS PERTAINING TO PATIENTS WHO ARE OR HAVE BEEN ENROLLED IN A CHEMICAL DEPENDENCY/SUBSTANCEABUSE PROGRAM, SOME INFORMATION MAY BE OMITTED. This clinical summary was aggregated from multiple sources. Caution should be exercised in using it in the provision of clinical care. This summary normalizes information from multiple sources, and as a consequence, information in this document may materially change the coding, format and clinical context of patient data. In addition, data may be omitted in some cases. CLINICAL DECISIONS SHOULD BE BASED ON THE PRIMARY CLINICAL RECORDS. [facility]. provides no warranty or guarantee of the accuracy or completeness of information in this document.
[2023-04-28 10:46] LABS: Platelet Count 126 K/mm3 (150-450)
[2023-04-28 11:07] LABS: Valproic Acid (Depakene) Level 84 ug/mL (50-100)
[2023-04-28 13:21] LABS: ALB/GLOB Ratio 1.4 RATIO (0.9-2.4); AST(SGOT) 7 U/L (15-37); Alanine Aminotransfer ALT/SGPT 12 U/L (16-61); Albumin, Serum 3.9 g/dL (3.2-5.0); Alkaline Phosphatase 104 U/L (45-117); Anion Gap 7 (5-15); BUN 3 mg/dL (7-18); BUN/Creat Ratio 4.4 RATIO (10-20); Calcium,Total 8.9 mg/dL (8.5-10.1); Chloride 105 mmol/L (98-107); Creatinine, Serum 0.69 mg/dL (0.70-1.30); EST Glomerular Filtration Rate 130 mL/min (>60); Est Glom Filt Rate - Afr Amer 157 mL/min (>60); Globulin 2.8 g/dL (2.2-4.2); Glucose 76 mg/dL (74-106); Potassium 3.3 mmol/L (3.5-5.1); Protein, Total 6.7 g/dL (6.4-8.2); Sodium Level 140 mmol/L (136-145)
== END | disposition home or self-care (01) ==
LOC: BIMLAB 10:07
PROVIDERS: PCP Internal Medicine; Referring Provider Registered Nurse; Visit Provider Registered Nurse
DX: F31.9 Bipolar disorder, unspecified (principal); F19.10 Other psychoactive substance abuse, uncomplicated; R53.83 Other fatigue; E55.9 Vitamin D deficiency, unspecified; Z79.899 Other long term (current) drug therapy
CPT/HCPCS: 36415; 80053; 80164; 82140; 85049

== ENCOUNTER → 2023-05-29 | Outpatient (CLI) | payer MEDICARE, SELFPAY ==
[2023-05-29 16:43] LABS: Absolute Lymphocyte Count 1.89 X10^3/uL (0.83-4.51); Absolute Neutrophil Count 2.8 X10^3/uL (2.0-7.7); Basophil# 0.06 X10^3/uL; Basophil% 1.1 % (0-1); Eosinophil# 0.35 X10^3/uL; Eosinophils% 6.4 % (0-5); Hematocrit 47.6 % (40-54); Hemoglobin 16.4 g/dL (13.0-16.5); Lymphocyte # 1.89 X10^3/ul (0.83-4.51); Lymphocyte % 34.4 % (19-41); Mean Corp Hgb Conc 34.5 g/dL (32-36); Mean Corpuscular Hgb 30.5 pg (27.0-32.0); Mean Corpuscular Volume 88.6 fL (80-94); Mean Platelet Vol. 11.7 fl (6.2-12.0); Monocyte# 0.43 X10^3/uL; Monocyte% 7.8 % (0-10); NRBC Flagged by Analyzer 0 % (0-5); Neutrophil # 2.76 X10^3/uL (2.7-7.7); Neutrophil % 50.1 % (47-70); Platelet Count 151 K/mm3 (150-450); RBC Distribution Width SD 41.6 fl (35.1-43.9); Red Blood Count 5.37 M/mm3 (4.6-6.2); White Blood Count 5.5 K/mm3 (4.4-11.0)
[2023-05-29 17:07] LABS: Anion Gap 3 (5-15); BUN 6 mg/dL (7-18); Calcium,Total 8.8 mg/dL (8.5-10.1); Chloride 110 mmol/L (98-107); Creatinine, Serum 0.75 mg/dL (0.70-1.30); EST Glomerular Filtration Rate 118 mL/min (>60); Est Glom Filt Rate - Afr Amer 142 mL/min (>60); Glucose 103 mg/dL (74-106); Potassium 3.5 mmol/L (3.5-5.1); Sodium Level 141 mmol/L (136-145)
--- OUTSIDE RECORDS SUMMARY | 2023-05-29 22:20 | XMS RPT_ITS | CCD ---
Author Name Unknown Address [address] [place] [address] Organization [facility] Care Team Providers Care Push Connector Assembler Name Role Phone SIENNA FLORIAN Unavailable Unavailable ROBYN GRANT () Unavailable Unav ailable ROBYN GRANT () Unavailable Unav ailable SIENA SUSAN D Unavailable Unavailable RAY, SUSAN D Unavailable Unavailable Oleghe, Efewongbe B Unavailable Unavailable Ayaan Keita Unavailable Unavailable Sina Paul MD Primary Care Provider [phone] Sina Paul MD Primary Care Provider [phone] SUSAN RAY D Attending Unavailable OLEGHE, EFEWONGBE B Primary Care Unavailable RAY, SUSAN D Referring Unavailable OLEGHE, EFEWONGBE B Primary Care Unavailable RAY, SUSAN D Referring Unavailable OLEGHE, EFEWONGBE B Primary Care Unavailable RAY, SUSAN D Referring Unavailable OLEGHE, EFEWONGBE B Primary Care Unavailable RAY, SUSAN D Referring Unavailable RAY, SUSAN D Attending Unavailable OLEGHE, EFEWONGBE B Primary Care Unavailable RAY, SUSAN D Referring Unavailable OLEGHE, EFEWONGBE B Primary Care Unavailable RAY, SUSAN D Referring Unavailable OLEGHE, EFEWONGBE B Primary Care Unavailable RAY, SUSAN D Referring Unavailable Allergies Allergy Classification Reported Allergen(s) Allergy Type Date of Onset Reaction(s) Facility (5 sources) topiramate; Translations: [TOPIRAMATE] Drug Allergy 04-24-2020 Mental Status Change [facility] Work Phone: (5 sources) valbenazine; Translations: [VALBENAZINE] Drug Allergy 04-24-2020 Other: See Comments [facility] Work Phone: Medications Completed/Discontinued Medications Medication Drug Class(es) Dates Sig (Normalized) Sig (Original) [id number] 200 actuat albuterol 0.09 mg/actuat metered dose [...] Peripheral vascular disease, unspecified; Translations: [Atherosclerosis of teller arteries of extremities with intermittent claudication, bilateral [...] Date Time Vital Sign Value Performing Clinician Marii tucker 09-10-2022 16:00-0400 Diastolic blood pressure 84 mm[Hg] Susan Ray DO Work Phone: [facility] 09-10-2022 16:00-0400 Heart rate 94 /min Susan Ray DO Work Phone: [facility] 09-10-2022 16:00-0400 SaO2% (BldA) [Mass fraction] 97 % Susan Ray DO Work Phone: [facility] 09-10-2022 16:00-0400 Systolic blood pressure 114 mm[Hg] Susan Ray DO Work Phone: [facility] 10-09-2021 10:33-0400 Body height 176 cm Susan Ray DO Work Phone: [facility] 10-09-2021 10:33-0400 Body weight 71.22 kg Susan Ray DO Work Phone: [facility] 10-09-2021 10:33-0400 Diastolic blood pressure 87 mm[Hg] Susan Amadorle DO Work Phone: [facility] 10-09-2021 10:33-0400 Heart rate 86 /min Susan Ray DO Work Phone: [facility] 10-09-2021 10:33-0400 SaO2% (BldA) [Mass fraction] 97 % Susan Ray DO Work Phone: [facility] 10-09-2021 10:33-0400 Systolic blood pressure 123 mm[Hg] Susan Ray DO Work Phone: [facility] Encounters Encounter Date Encounter Type Care Provider Facility Start: 09-10-2022 End: 09-12-2022 ambulatory SINA PAUL Facility:[facility] Start: 09-10-2022 End: 09-12-2022 Patient encounter procedure Susan Ray DO Work Phone: Vascular Surgery Procedures Date Procedure Procedure Detail Performing Clinician Start: 04-28-2020 Colonoscopy Susan Maya nikhil DO Work Phone: Start: 06-26-2016 Adult depression scr eening assessment Susan Ray DO Work Phone: History of Cath Sten t Placement Number Of Stents Placed: Sina Paul Plan of Treatment Date Care Activity Detail Author Start: 05-26-2023 LIPID SCREEN LIPID SCREEN [facility] Start: 11-15-2022 Influenza vaccination [facility] Start: 03-17-2022 DEPRESSION ASSESSMENT DEPRESSION ASSESSMENT [facility] Start: 11-15-2021 Influenza vaccination INFLUENZA (#1) [facility] Start: 04-28-2021 Colonoscopy COLONOSCOPY [facility] Start: 04-28-2021 COLORECTAL CANCER SCREENING COLORECTAL CANCER SCREENING [facility] Start: 12-18-2019 DIABETES SCREEN DIABETES SCREEN [facility] Start: 2018 COLOGUARD (FIT-DNA) COLOGUARD (FIT-DNA) [facility] Start: [address] COLONOGRAPHY [facility] Start: 2018 FECAL OCCULT BLOOD FECAL OCCULT BLOOD [facility] Start: 2018 SIGMOIDOSCOPY SIGMOIDOSCOPY [facility] Start: 10-25-2017 ANNUAL PCP TEAM CHRONIC DISEASE VISIT ANNUAL PCP TEAM CHRONIC DISEASE VISIT [facility] Start: 06-26-2017 Adult depression screening assessment DEPRESSION SCREENING [facility] Start: 1992 Urine microalbumin profile DTAP,TDAP,TD (1 - Tdap) [facility] Start: 07-02-1991 ANNUAL PCP TEAM CHRONIC DISEASE VISIT ANNUAL PCP TEAM CHRONIC DISEASE VISIT [facility] Start: 07-02-1991 BP CONTROLLED (<130/80) BP CONTROLLED (<130/80) [facility] Start: 07-02-1991 HEPATITIS C SCREENING HEPATITIS C SCREENING [facility] Start: 07-02-1991 HIV SCREENING HIV SCREENING [facility] Start: 07-02-1979 PNEUMOCOCCAL (1 - PCV) PNEUMOCOCCAL (1 - PCV) [facility] Start: 1973 COVID-19 VACCINE (#1) COVID-19 VACCINE (#1) [facility] Start: 1973 HEPATITIS B (1 of 3 - 3-dose series) HEPATITIS B (1 of 3 - 3-dose series) [facility] End: 10-09-2022 [facility] Vascular Lab Routine Peripheral arterial disease (HCC) 1 Occurrences starting 10/09/2021 until 10/09/2022 [facility] Work Phone: Payers Date Payer Category Payer Medicaid [place] [employer] [employer] [id number] 2022-Present [phone] [address] [place] [address] Medicaid [id number] 2002 Medicaid [place] [employer] [id number] 2002-Present [phone] [address] [place] [address] Medicaid [id number] 2002 Medicaid [id number] Social History Date Type Detail Facility Start: 11-14-2020 Tobacco smoking stat us NHIS Ex-smoker [facility] End: 08-13-2020 History of tobacco use Current smoker [facility] End: 08-13-2020 History of tobacco use Cigarette Smoker [facility] End: 08-13-2020 History of tobacco use Cigar Smoker [facility] Start: 11-14-2020 End: 09-10-2022 Cigarettes smoked current (pack per day) - Reported 1 [facility] Start: 11-14-2020 End: 09-10-2022 Tobacco use and exposure Smokeless tobacco non-user [facility] Start: 11-14-2020 End: 09-10-2022 Alcohol intake Current non-drinker of alcohol (finding) [facility] Start: 1975 Sex Assigned At Not on file [facility] Start: 10-09-2021 End: 09-10-2022 Tobacco smoking status NHIS Smokes tobacco daily [facility] Start: 09-10-2022 Tobacco use panel [facility] National Score (1-100), lower number is lower risk 57 [facility] NEGATED: Highlighted row - - NW-Ccivbovegsgl-Omhg an Work Phone: Functional Status Date Assessment Result Facility NEGATED: Highlighted row Functional performance Functional status health issues are not documented Disease HS-Jhhdjwxcekyz-Wzx man Work Phone: Mental Status Date Assessment Result Facility NEGATED: Highlighted row Cognitive function [Interpretation] Cognitive status health issues are not documented Disease ZL-Pxlmpbiznbjf-Wjf man Work Phone: Clinical Notes 09-26-2021 to 09-10-2022 Susan Ray DO - 09/10/2022 4:47 PM EDTBSusan tejeda DO - 09/10/2022 12:00 AM EDTTelephone Encounter - Ana Gooden - 06/18/2022 9:59 AM EDT Note Date & Type Note Facility 09-10-2022 Note HNO ID: [id number] Author: Susan Ray DO Service: ? Author Type: Physician Type: Progress Notes Filed: 09/28/2022 2:18 PM Note Text: This office note has been dictated. Susan Ray DO [facility] 09-10-2022 History of Presen t illness Narrative This office note has been dictated. Susan Ray DO NAME: CARLOS BRADLEY JR. [facility] NO: [id number] DATE OF SERVICE: 09/10/2022 Subjective: Mr. Bradley [...] concerns. Susan Ray D.O. KB/089 Audio #: [id number] Date Dictated: 09/10/2022 14:39:18 Date Typed: 09/13/2022 06:04:16 Date Revised: documented in this encounter [facility] 09-10-2022 Note HNO ID: [id number] Author: Susan Ray DO Service: Vascular Surgery Author Type: Physician Type: Progress Notes Filed: 09/16/2022 8:58 AM Note Text: NAME: CARLOS BRADLEY JR. [facility] NO: [id number] DATE OF SERVICE: 09/10/2022 Subjective: Mr. Bradley [...] concerns. Susan Ray D.O. KB/089 Audio #: [id number] Date Dictated: 09/10/2022 14:39:18 Date Typed: 09/13/2022 06:04:16 Date Revised: [facility] 06-18-2022 Miscellaneous Notes Patient calling with [...] with the plan documented in this encounter [facility] 10-09-2021 Note HNO ID: [id number] Author: Susan Ray DO Service: Vascular Surgery Author Type: Physician Type: Progress Notes Filed: 10/15/2021 4:41 PM Note Text: NAME: CARLOS BRADLEY JR. [facility] NO: [id number] DATE OF SERVICE: 10/09/2021 Subjective: Mr. Bradley [...] a year, or sooner. Susan Ray D.O. SALLY/089 Audio #: [id number] Date Dictated: 10/09/2021 09:15:19 Date Typed: 10/15/2021 09:37:33 Date Revised: [facility] 10-09-2021 History of Presen t illness Narrative NAME: CARLOS BRADLEY JR. [facility] NO: [id number] DATE OF SERVICE: 10/09/2021 Subjective: Mr. Bradley [...] sooner. Susan Ray D.O. KB/089 Audio #: [id number] Date Dictated: 10/09/2021 09:15:19 Date Typed: 10/15/2021 09:37:33 Date Revised: documented in this encounter [facility] 09-26-2021 Miscellaneous Notes Spoke with provider on the phone, no additional recommendations from vascular Patient is scheduled for testing and f/u appt with our office Encounter closed Scheduled patient for Sooner testing and follow up with dr. Ray at the [place]. Patient calling with concerns of dizziness [...] to schedule. He tried to schedule in [place] but can not be seen until December. Please advise if any other recommendations documented in this encounter [facility] documented in this encounter [facility] Diagnosis Peripheral arterial disease (HCC)- Primary Peripheral vascular disease, unspecified documented [facility] this encounter [facility] (narrative)* Outpatient Procedure (Routine) - Pending Review Specialty Diagnoses / Procedures Referred By Kobiac t Referred To Contact [facility] Diagnoses Peripheral arterial disease (HCC) Procedures [facility] NON-INVASIVE PHYSIOLOGIC STUDY EXTREMITY 3 Susan Russell DO [address] [place] [address] [facility] [place] [address] [place] [address] Referral ID Status Reason Start Date Expiration Date Visits Requested Visits Authorized [id number] Pending Review Auto-Generat ed Referral 10/09/2021 10/09/2022 1 1 * Outpatient Procedure (Routine) - Pending Review Specialty Diagnoses / Procedures Referred By Contac t Referred To Contact [facility] Diagnoses Peripheral arterial disease (HCC) Procedures US ABD AORTA COMPLETE VAS LAB DUP-SCAN AORTA IVC ILIAC VASCL/BPGS Susan Cortés DO [address] [place] [address] [facility] [address] [address] Referral ID Status Reason Start Date Expiration Date Visits Requested Visits Authorized [id number] Pending Review Auto-Generat ed Referral 10/09/2021 10/09/2022 1 1 * Outpatient Procedure (Routine) - Pending Review Specialty Diagnoses / Procedures Referred By Contac t Referred To Contact [facility] Diagnoses Bilateral carotid artery stenosis Procedures US CAROTID ARTERIES [facility] DUPLEX SCAN EXTRACRANIAL ART COMPL BI STUDY Susan Ray DO [address] [place] [address] [address] Referral ID Status Reason Start Date Expiration Date Visits Requested Visits Authorized [id number] Pending Review Auto-Generat ed Referral 10/09/2021 10/09/2022 1 1 [facility] for referral (narrative)* Outpatient Procedure (Routine) - Authorized Specialty Diagnoses / Procedures Referred By Contac t Referred To Contact [facility] Diagnoses Peripheral arterial disease (HCC) Procedures US ABD AORTA COMPLETE VAS LAB DUP-SCAN AORTA IVC ILIAC VASCL/BPGS Susan Cortés DO [address] [place] [address] [address] Referral ID Status Reason Start Date Expiration Date Visits Requested Visits Authorized [id number] Authorized Auto-Generat ed Referral 09/10/2022 09/10/2023 1 1 * Outpatient Procedure (Routine) - Authorized Specialty Diagnoses / Procedures Referred By Contac t [facility] Diagnoses Peripheral arterial disease (HCC) Procedures [facility] NON-INVASIVE PHYSIOLOGIC STUDY EXTREMITY 3 Susan Russell DO [address] [place] [address] [facility] [address] [place] [address] Referral ID Status Reason Start Date Expiration Date Visits Requested Visits Authorized [id number] Authorized Auto-Generat ed Referral 09/10/2022 09/10/2023 1 1 [facility] Summary Purpose Family History No Family History Records FoundNo Family History Records FoundNo Family History Records FoundNo Family History Records Found Advance Directives No Advanced Directives Records FoundDocuments on File Type Date Recorded 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 Advance Directive(s) 04/25/2020 10:57 AM Advance Directive(s) 12/17/2016 6:53 AM Advance Directive(s) 10/21/2016 1:43 PM Advance Directive(s) 09/23/2016 9:10 AM Documents on File Type Date Recorded 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 Advance Directive(s) 04/25/2020 10:57 AM Advance Directive(s) 12/17/2016 6:53 AM Advance Directive(s) 10/21/2016 1:43 PM Advance Directive(s) 09/23/2016 9:10 AM Additional Source Comments (unrecognized sect ion and content) No Status Records FoundNo Status Records FoundNo Status Records FoundNo Status Records Found INFORMATION SOURCE (unrecogn ized section and content) DATE CREATED AUTHOR AUTHOR'S ORGANIZ ATION 12/25/2018 [facility] DATE CREATED AUTHOR AUTHOR'S ORGANIZ ATION 05/16/2020 [employer] DATE CREATED AUTHOR AUTHOR'S ORGANIZ ATION 09/28/2022 [facility] Source Comments (unrecognize d section and content) In the event this informatio n is protected by the Federal Confidentiality of Alcohol and Drug Abuse Patient Records regulations: The Federal rules restrict any use of the information to criminally investigate or prosecute any alcohol or drug abuse patient.[facility] the event this information is protected by the Federal Confidentiality of Alcohol and Drug Abuse Patient Records regulations: The Federal rules restrict any use of the information to criminally investigate or prosecute any alcohol or drug abuse patient.[facility] the event this information is protected by the Federal Confidentiality of Alcohol and Drug Abuse Patient Records regulations: The Federal rules restrict any use of the information to criminally investigate or prosecute any alcohol or drug abuse patient.[facility] the event this information is protected by the Federal Confidentiality of Alcohol and Drug Abuse Patient Records regulations: The Federal rules restrict any use of the information to criminally investigate or prosecute any alcohol or drug abuse patient.[facility] Reason for Visit (unrecogniz ed section and content) Reason Comments Established Patient Reason Comments Patient Update Left knee pain Reason Comments Follow Up Care Teams (unrecognized sec tion and content) Push Connector Assembler Relationship Specialty Start Date End Date Sina Paul MD [address] [place], [place] [id number] PCP - General Internal Medicine 04/25/20 Push Connector Assembler Relationship Specialty Start Date End Date Sina Paul MD [address] [place] [place], [place] [id number] PCP - General Internal Medicine 04/25/20 Push Connector Assembler Relationship Specialty Start Date End Date Sina Paul MD [address] [address] PCP - General Internal Medicine 04/25/20 [...] BE BASED ON THE PRIMARY CLINICAL RECORDS. [employer] [facility]. provides no warranty or guarantee of the accuracy or completeness of information in this document.
== END | disposition home or self-care (01) ==
LOC: BIMLAB 16:05
PROVIDERS: PCP Internal Medicine; Visit Provider Internal Medicine
DX: I10 Essential (primary) hypertension (principal)
CPT/HCPCS: 36415; 80048; 85025

== ENCOUNTER → 2023-09-17 | Outpatient (CLI) | payer MEDICARE, SELFPAY | END | disposition home or self-care (01) | LOC: PSN 09:12 | PROVIDERS: PCP Internal Medicine; Referring Provider Internal Medicine; Visit Provider Internal Medicine | DX: J44.9 Chronic obstructive pulmonary disease, unspecified (principal) | CPT/HCPCS: 94060; 94726; 94729 ==

== ENCOUNTER → 2023-12-01 | Outpatient (CLI) | payer MEDICARE, SELFPAY ==
[2023-12-01 17:07] LABS: AST(SGOT) 13 U/L (15-37); Alanine Aminotransfer ALT/SGPT 19 U/L (16-61); Albumin, Serum 3.5 g/dL (3.2-5.0); Alkaline Phosphatase 100 U/L (45-117); Anion Gap 8 (5-15); BUN 6 mg/dL (7-18); BUN/Creat Ratio 8.6 RATIO (10-20); Calcium,Total 9.1 mg/dL (8.5-10.1); Chloride 106 mmol/L (98-107); Cholesterol 133 mg/dL (200); EST Glomerular Filtration Rate 127 mL/min (>60); Est Glom Filt Rate - Afr Amer 153 mL/min (>60); Globulin 3.4 g/dL (2.2-4.2); Glucose 75 mg/dL (74-106); High Density Lipoprotein 34 mg/dL; Potassium 3.8 mmol/L (3.5-5.1); Protein, Total 6.9 g/dL (6.4-8.2); Sodium Level 138 mmol/L (136-145); Triglycerides 109 mg/dL; Very Low Density Lipoprotein 22 mg/dL (5-40)
== END | disposition home or self-care (01) ==
LOC: BIMLAB 15:15
PROVIDERS: PCP Internal Medicine; Referring Provider Internal Medicine; Visit Provider Internal Medicine
DX: I10 Essential (primary) hypertension (principal)
CPT/HCPCS: 36415; 80053; 80061

== ENCOUNTER → 2024-04-19 | Outpatient (CLI) | payer MEDICARE, SELFPAY ==
[2024-04-19 10:35] LABS: Absolute Lymphocyte Count 1.59 X10^3/uL (0.83-4.51); Absolute Neutrophil Count 1.6 X10^3/uL (2.0-7.7); Basophil# 0.04 X10^3/uL; Eosinophil# 0.23 X10^3/uL; Hematocrit 46.3 % (40-54); Hemoglobin 15.7 g/dL (13.0-16.5); Lymphocyte # 1.59 X10^3/ul (0.83-4.51); Lymphocyte % 41.7 % (19-41); Mean Corp Hgb Conc 33.9 g/dL (32-36); Mean Corpuscular Hgb 33.9 pg (27.0-32.0); Mean Platelet Vol. 12.2 fl (6.2-12.0); Monocyte# 0.36 X10^3/uL; Monocyte% 9.4 % (0-10); NRBC Flagged by Analyzer 0 % (0-5); Neutrophil # 1.57 X10^3/uL (2.7-7.7); Neutrophil % 41.4 % (47-70); Platelet Count 132 K/mm3 (150-450); RBC Distribution Width CV 13.6 % (11.6-14.6); RBC Distribution Width SD 50.1 fl (35.1-43.9); Red Blood Count 4.63 M/mm3 (4.6-6.2); White Blood Count 3.8 K/mm3 (4.4-11.0)
[2024-04-19 11:18] LABS: AST(SGOT) 6 U/L (15-37); Alanine Aminotransfer ALT/SGPT 11 U/L (16-61); Albumin, Serum 3.3 g/dL (3.2-5.0); Alkaline Phosphatase 115 U/L (45-117); Anion Gap 7 (5-15); BUN 3 mg/dL (7-18); BUN/Creat Ratio 4.4 RATIO (10-20); Chloride 107 mmol/L (98-107); Creatinine, Serum 0.68 mg/dL (0.70-1.30); EST Glomerular Filtration Rate 130 mL/min (>60); Est Glom Filt Rate - Afr Amer 157 mL/min (>60); Globulin 3.4 g/dL (2.2-4.2); Glucose 115 mg/dL (74-106); PSA,Total - Annual Screen 1.69 ng/mL (0.00-4.00); Potassium 3.5 mmol/L (3.5-5.1); Protein, Total 6.7 g/dL (6.4-8.2); Sodium Level 142 mmol/L (136-145)
[2024-04-19 13:04] LABS: Valproic Acid (Depakene) Level 90 ug/mL (50-100)
== END | disposition home or self-care (01) ==
LOC: BIMLAB 09:46
PROVIDERS: PCP Internal Medicine; Referring Provider Internal Medicine; Visit Provider Internal Medicine
DX: I10 Essential (primary) hypertension (principal); Z51.81 Encounter for therapeutic drug level monitoring; Z79.899 Other long term (current) drug therapy; Z12.5 Encounter for screening for malignant neoplasm of prostate; E78.5 Hyperlipidemia, unspecified
CPT/HCPCS: 36415; 80053; 80164; 82140; 84153; 85025; G0103

== ENCOUNTER → 2024-06-03 | Outpatient (CLI) | payer MEDICARE, SELFPAY ==
[2024-06-03 17:58] LABS: Vitamin B12 339 pg/mL (180-914)
== END | disposition home or self-care (01) ==
LOC: BIMLAB 15:03
PROVIDERS: PCP Internal Medicine; Referring Provider Internal Medicine; Visit Provider Internal Medicine
DX: G62.9 Polyneuropathy, unspecified (principal)
CPT/HCPCS: 36415; 82607

== ENCOUNTER → 2024-07-05 | Outpatient (CLI) | payer MEDICARE, MEDICAID, SELFPAY ==
--- NOTE | 2024-07-05 18:34 | MRI_ITS ---
EXAM: MRI LUMBAR SPINE. CLINICAL HISTORY: Chronic low back pain radiating into the right leg. COMPARISON: Radiographs on 06/18/2024. TECHNIQUE: Axial and sagittal T1 and T2 weighted images were obtained. Fat suppressed images were also obtained. FINDINGS: Moderate chronic changes of Scheuermann's disease. Straightening of the lumbar lordosis, probably muscular spasm and pain. Uncomplicated benign chronic hemangioma of L1 vertebral body measuring 1.6 cm. Moderate diffuse spondylotic changes. Moderate multilevel degenerative disc disease. There is normal signal intensity from the visualized bone marrow without evidence of replacement or acute fracture. The conus is unremarkable. Evaluation of the individual levels revealed the following: L5-S1: There is grade 1 anterolisthesis measuring 4.2 mm. Moderate diffuse disc bulge. Facet joint arthropathy. The spinal canal is not narrowed. There is moderate bilateral neural foramina narrowing. L4-5: There is mild diffuse disc bulge. Superimposed broad-based left foraminal disc protrusion measuring 3.7 mm. Bilateral facet joint arthropathy and ligamentum flavum hypertrophy. The spinal canal is not narrowed. There is mild right and moderate left neural foramina narrowing. L3-4: There is grade 1 anterolisthesis measuring 2.8 mm. Mild diffuse disc bulge. Superimposed broad-based left foraminal disc protrusion measuring 3.6 mm. The spinal canal is not narrowed. There is mild right and moderate left neural foramina narrowing. L2-3: There is mild diffuse disc bulge. Bilateral facet joint arthropathy and ligamentum flavum hypertrophy. The spinal canal is not narrowed. There is mild right and moderate left neural foramina narrowing. L1-2: There is mild diffuse disc bulge. The spinal canal is not narrowed. There is no evidence of neural foramina narrowing. T12-L1: There is mild diffuse disc bulge. The spinal canal is not narrowed. There is no evidence of neural foramina narrowing. T11-T12: There is mild diffuse disc bulge. The spinal canal is not narrowed. There is no evidence of neural foramina narrowing. T10-T11: There is mild diffuse disc bulge. The spinal canal is not narrowed. There is no evidence of neural foramina narrowing. Normal visualized paraspinous soft tissue structures. MRI/Spine Lumbar (Routine) IMPRESSION: 1. Spondylosis. 2. Degenerative disc disease. Reading Location[facility]
== END | disposition home or self-care (01) ==
LOC: MRI 09:32
PROVIDERS: PCP Internal Medicine; Referring Provider Student in an Organized Health Care Education/Training Program; Visit Provider Student in an Organized Health Care Education/Training Program
DX: M47.816 Spondylosis without myelopathy or radiculopathy, lumbar region (principal); M51.369 Other intervertebral disc degeneration, lumbar region without mention of lumbar back pain or lower extremity pain
CPT/HCPCS: 72148

== ENCOUNTER → 2024-07-07 | Outpatient (CLI) | payer MEDICARE, SELFPAY ==
--- NOTE | 2024-07-07 17:12 | STRESSREP ---
Stress Test Report Pharmacologic myocardial perfusion stress test. 49-year-old man with a history of abnormal EKG Resting EKG demonstrates normal sinus rhythm with a rate of 64 bpm. Resting blood pressure is 118/82 mmHg. 0.4 mg of regadenoson was infused per usual protocol followed by rapid intravenous saline flush injection. Continuous EKG monitoring was performed. The maximum heart rate was 103 bpm which was 60% of max impacted heart rate the maximum workload was 1 metabolic equivalent. At rest there were no ST or T wave changes noted to suggest ischemia and at peak infusion nonspecific ST changes were noted which did not meet the criteria for ischemia. No clinical angina is noted. The final blood pressure was 120/80 mmHg. Myocardial perfusion protocol. 11.8 mCi of technetium 99m sestamibi was injected at rest. 0.4 mg of regadenoson was infused per usual protocol. At peak infusion 33.3 mCi of technetium 99m sestamibi was injected stress images were obtained stress and rest images were reconstructed and compared in the short axis vertical long and horizontal long axis. Gated images were also obtained. Perfusion SPECT analysis: Review of the stress images demonstrate normal uptake of tracer noted in all areas of the myocardium. The resting images similar demonstrated normal uptake of tracer noted in all areas of the myocardium. No areas of reversibility are noted to suggest ischemia and no previous infarct is noted. Gated SPECT analysis: The gated ejection fraction is 62%. Conclusion: Normal pharmacologic myocardial perfusion stress test. Preserved ejection fraction.
== END | disposition home or self-care (01) ==
LOC: CVS 06:34
PROVIDERS: PCP Internal Medicine; Referring Provider Internal Medicine; Visit Provider Internal Medicine
DX: R94.31 Abnormal electrocardiogram [ECG] [EKG] (principal); I77.9 Disorder of arteries and arterioles, unspecified; I10 Essential (primary) hypertension
CPT/HCPCS: 78452; 93017; A9500; A4216; J2785

== ENCOUNTER → 2024-11-05 | Outpatient (CLI) | payer MEDICARE, SELFPAY ==
--- NOTE | 2024-11-05 17:20 | CT_ITS ---
PROCEDURE: SPINE LUMBAR WITHOUT CONTRAST 11/05/2024 REASON FOR EXAM: PAIN TECHNIQUE: SPINE LUMBAR WITHOUT CONTRAST Coronal and Sagittal reconstruction series were provided. One or more dose reduction techniques were used (e.g., Automated exposure control, adjustment of the mA and/or kV according to patient size, use of iterative reconstruction technique RADIATION DOSE SUMMARY: CTDlvol: 50.40 mGy DLP: 574.55 mGycm FINDINGS: Vertebrae: No acute bony abnormalities. Alignment: Normal. L1-2: Disc bulge. Facet arthropathy. Mild canal stenosis. Mild bilateral foramina stenosis. L2-3: Disc bulge. Facet joint arthropathy. Moderate canal stenosis. Mild bilateral foramina stenosis. L3-4: Disc bulge. Facet joint arthropathy. Moderate canal stenosis. Mild bilateral foramina stenosis. L4-5: Disc bulge. Facet joint arthropathy. Mild canal stenosis. Mild bilateral foramina stenosis. L5-S1: Vacuum phenomena. Sclerotic changes at the opposite endplates. Bilateral L5 spondylolysis. Moderate bilateral foramina stenosis with potential abutment upon the exiting bilateral L5 nerves. No significant canal stenosis. Sacrum: No acute bony abnormalities. Atherosclerotic calcifications of the aorta without aneurysm. CT/Spine Lumbar without Contrast IMPRESSION: Degenerate changes, predominantly at L5-S1. L5-S1, vacuum phenomena. Sclerotic changes at the opposite endplates. Bilater al L5 spondylolysis. Moderate bilateral foramina stenosis with potential abutment upon the exiting bilateral L5 nerves. No significant canal stenosis. Reading Location: [id number]
== END | disposition home or self-care (01) ==
LOC: CT 17:15
PROVIDERS: PCP Internal Medicine; Referring Provider Orthopaedic Surgery Orthopaedic Surgery of the Spine; Visit Provider Orthopaedic Surgery Orthopaedic Surgery of the Spine
DX: M48.061 Spinal stenosis, lumbar region without neurogenic claudication (principal); M51.362 Other intervertebral disc degeneration, lumbar region with discogenic back pain and lower extremity pain; M47.816 Spondylosis without myelopathy or radiculopathy, lumbar region; M54.16 Radiculopathy, lumbar region
CPT/HCPCS: 72131

== ENCOUNTER 2024-12-29 10:58 | Inpatient (IN) | payer MEDICARE, SELFPAY ==
[2024-12-23 13:26] LABS: Hematocrit 48.5 % (40-54); Hemoglobin 16.9 g/dL (13.0-16.5); Immature Granulocytes Count 0.020 X10^3/uL (0.0-0.0); Mean Corp Hgb Conc 34.8 g/dL (32-36); Mean Corpuscular Volume 86.3 fL (80-94); Mean Platelet Vol. 11.8 fl (6.2-12.0); NRBC Flagged by Analyzer 0 % (0-5); Platelet Count 151 K/mm3 (150-450); RBC Distribution Width CV 12.9 % (11.6-14.6); RBC Distribution Width SD 40.3 fl (35.1-43.9); Red Blood Count 5.62 M/mm3 (4.6-6.2); White Blood Count 6.9 K/mm3 (4.4-11.0)
--- NOTE | 2024-12-23 13:57 | PAT.ANESEVAL ---
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 When Was Last Pacemaker Check QUESTION #4 FULL TEXT: You/Your Family Experience fever (hyperthermia) with Anesthesia Last Oral Intake Last Oral intake: Last Oral Intake NPO since Meds taken in AM with sips of water? Meds patient instructed to take am of surgery PONV PONV - coffin maker: PONV - coffin maker Female No 12/15/24 12:24 HX of Motion Sickness Yes 12/15/24 12:24 HX of N/V After Surgery No 12/15/24 12:24 Non-Smoker No 12/15/24 12:24 Duration of Surgery greater Yes 12/15/24 12:24 than 60 minutes Number of Risk Factors 2 12/15/24 12:24 PONV Score Moderate Risk 12/15/24 12:24 Height & Weight Height & Weight: Anesthesia: Height & Weight Height 5 ft 7 in 09/29/24 16:07 Respiratory Assessment Respiratory Assessment - coffin maker: Respiratory Tract Infection Hx - coffin maker Hx Respiratory Tract Infection No 12/15/24 12:24 STOP Sleep Apnea STOP Sleep Apnea - coffin maker: STOP Sleep Apnea - coffin maker Hx Hypertension Yes: CONTROLLED WITH MED 12/15/24 12:24 Hx Sleep Apnea No 12/15/24 12:24 CPAP BIPAP Do you snore loudly (louder No 12/15/24 12:24 than talking or can be heard Do you often feel tired/ No 12/15/24 12:24 fatigued/ sleepy during daytime? Has anyone observed you stop No 12/15/24 12:24 breathing during sleep? STOP Results Negative 12/15/24 12:24 QUESTION #5 FULL TEXT : Do you snore loudly (louder than talking or can be heard through closed doors)? 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 Specify any problems Hx of Preganancy in last 3 N/A 12/15/24 12:24 Months Nurse Filling Out Transfusion DSCHRIBER 12/15/24 12:24 & Questions: Date: 12/15/24 12/15/24 12:24 Time: 12:25 12/15/24 12:24 Patient unable to answer at this time (ie. confused, unrespo /Reproduction History /Reproductive History - coffin maker: /Reproductive Hx- coffin maker Hx Now No 12/15/24 12:24 Gestational Age (in weeks): EDC: Hx Hx Para Hx Section SAB No 12/15/24 12:24 PFSH Medical History Preoperative evaluation to rule out surgical contraindication Wears glasses Wears dentures Arthritis High cholesterol Back pain History of degenerative disc disease COPD (chronic obstructive pulmonary disease) Emphysema, unspecified Smoker History of pain when walking Hoarseness History of stress test Cardiology follow-up encounter History of DVT (deep vein thrombosis) Leg length discrepancy Lumbar radiculopathy H pylori ulcer (~05/01/20) Polycythemia Peripheral arterial occlusive disease Hypertension Home Medications ?Medication ?Instructions ?Recorded ?Last Taken ?Type aspirin 325 mg tablet 325 mg PO DAILY HEART HEALTH 05/18/20 Unknown History blood pressure monitor #1 ea 09/21/20 Unknown Rx labetalol 100 mg tablet 100 mg PO BID PRN hypertension #60 10/13/20 Unknown Rx tabs divalproex 500 mg tablet,extended 500 mg PO QHS DEPRESSION 10/24/22 Unknown History release 24 hr (Depakote ER) budesonide-formoterol HFA 160 2 puff inhalation Q12H ASTHMA 08/28/23 Unknown Rx mcg-4.5 mcg/actuation aerosol #10.2 grams inhaler (Symbicort) albuterol sulfate 90 mcg/actuation 1 puff inhalation Q6H PRN 09/04/23 Unknown Rx aerosol inhaler shortness of breath or wheezing #8.5 grams methocarbamol 500 mg tablet 500 mg PO TID PRN muscle spasm #90 12/01/23 Unknown Rx tabs Handicap Placard #1 ea 06/24/24 Unknown Rx lisinopril 40 mg tablet 40 mg PO DAILY BP #90 tabs 07/22/24 Unknown Rx gabapentin 600 mg tablet 600 mg PO Q6H Radiculopathy 1 10/05/24 Unknown Rx month #120 tabs atorvastatin 40 mg tablet 40 mg PO QHS CHOLESTEROL 12/15/24 Unknown History mecobalamin (vitamin B12) 1,000 1,000 mcg PO DAILY SUPPLEMENT 12/15/24 Unknown History mcg chewable tablet Allergy/AdvReac Type Severity Reaction Status Date / Time valbenazine (From Ingrezza) Allergy Other Verified 12/23/24 13:57 topiramate (From Topamax) AdvReac Severe tremors Verified 12/23/24 13:57 Family History Mother Diabetes Alzheimer disease Father Asthma Heart disease Myocardial infarction, Onset Age: 59 passed Sister Myocardial infarction early 40s Hypertension Diabetes Spinal stenosis Son Seizures born with hydocephalus Surgical History History of cardiac catheterization Hx of fusion of cervical spine History of colonoscopy myringotomy w ube, bilateral finger surgery EGD w/o or w/ brush/wash H/O partial cystectomy Social History Smoking Status: Current every day smoker tobacco type: cigarettes Tobacco: How many years used: 28 quit status: considering quitting alcohol intake: never substance use type: does not use what type of physical activity do you participate in: none Audit: Pertinent Findings Pertinent Findings EKG Perinent findings: December 23, 2024. Normal sinus rhythm 85 bpm. Normal EKG. Stress test pertinent findings: 07/07/2024. Normal myocardial perfusion stress test. EF 62%. Recommendation Anesthesia Recommendation Anesthesia recommendation: OPTIMIZED for anesthesia
[2024-12-23 14:14] LABS: Magnesium 2.1 mg/dL (1.5-2.2)
[2024-12-23 14:18] LABS: Anion Gap 10 (5-15); BUN 4 mg/dL (4-19); BUN/Creat Ratio 5.8 RATIO (10-20); Calcium,Total 9.3 mg/dL (7.6-11.0); Carbon Dioxide 24.9 mmol/L (21.0-32.0); Chloride 106 mmol/L (98-108); Glucose 81 mg/dL (70-99); Potassium 3.9 mmol/L (3.3-5.1)
[2024-12-29] VITALS (13 sets, daily range): BP systolic 93–153; BP diastolic 68–101; PULSE 70–98; RESP 14–18; TEMP 36.1–36.7; O2SAT 93–98; BMI 26.9
[2024-12-29] MEDS: Lactated Ringers 1,000 ML 15 ML IV (06:27)
[2024-12-29] MEDS: Magnesium 1 GM over 15 mins IV (06:28)
--- NOTE | 2024-12-29 06:36 | PCM.PRE.AN2 ---
ASA Classification* ASA Classification ASA Classification: 3 Assessment & Plan Anesthesia* Anesthesia Assessment Anesthesia Assessment: Discussed sedation and/or anesthesia options, risks, benefits, and alternatives with patient/parents/legal guardian/POA. Questions invited. The patient/parents/legal guardian/POA seems to understand and agrees to proceed with anesthesia plan. Reviewed the physical assessment, medical history, allergy history and patient home medications list prior to surgery/procedure/anesthetic and documented any changes. Performed airway and anesthesia risk assessments. Anesthesia Type Anesthesia Type: General History Source History Obtained from:: Patient and Chart Anesthesia Focused Assessment* Temperature: 98.1 F Pulse Rate: 81 Blood Pressure: 93/68 Respiratory Rate: 14 Pulse Ox: 93 Oxygen Delivery Method: Room Air Vital signs additional comments: Saturation 93% on room air. Smoker Airway Assessment Mouth opens: >3 cm Mallampati Score: II Teeth Condition: Dentures (Edentulous) Neck Range of motion (ROM): Limited ROM Labs Anesthesia Preop lab: CBC WBC, (4.4-11.0) 6.9 K/mm3 12/23/24, 13:04 RBC, (4.6-6.2) 5.62 M/mm3 12/23/24, 13:04 Hgb, (13.0-16.5) 16.9 g/dL H 12/23/24, 13:04 Hct, (40-54) 48.5 % 12/23/24, 13:04 Plt Count, (150-450) 151 K/mm3 12/23/24, 13:04 CHEMISTRY Potassium, (3.3-5.1) 3.9 mmol/L 12/23/24, 13:04 Sodium, (133-145) 141 mmol/L 12/23/24, 13:04 Magnesium, (1.5-2.2) 2.1 mg/dL 12/23/24, 13:05 Phosphorus, (2.5-4.9) 2.1 mg/dL L 11/02/20, 10:15 BUN, (4-19) 4 mg/dL 12/23/24, 13:04 Creatinine, (0.70-1.20) 0.63 mg/dL L 12/23/24, 13:04 Glucose, (70-99) 81 mg/dL 12/23/24, 13:04 TSH, (0.358-3.74) 1.15 uIU/mL 09/21/20, 11:50 COAG PT, (11.7-14.9) 24.1 SECONDS H 11/23/19, 15:00 Pre-Assessment Diagnosis/Proposed Procedure Planned Operative Procedure(s): TRANSFORAMINAL LUMBAR INTERBODY FUSION MINIMALLY INVASIVE L5-S1 Anesthesia History 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 When Was Last Pacemaker Check QUESTION #4 FULL TEXT: You/Your Family Experience fever (hyperthermia) with Anesthesia Last Oral Intake Last Oral intake: Last Oral Intake NPO since 03:45 12/29/24 06:22 Meds taken in AM with sips of water? 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 Female No 12/15/24 12:24 HX of Motion Sickness Yes 12/15/24 12:24 HX of N/V After Surgery No 12/15/24 12:24 Non-Smoker No 12/15/24 12:24 Duration of Surgery greater Yes 12/15/24 12:24 than 60 minutes Number of Risk Factors 2 12/15/24 12:24 PONV Score Moderate Risk 12/15/24 12:24 Height & Weight Height & Weight: Anesthesia: Height & Weight Height 5 ft 7 in 12/29/24 06:22 Weight: 78 kg 12/29/24 06:22 Body Mass Index (BMI) 26.9 12/29/24 06:22 Respiratory Assessment Respiratory Assessment - cable inspector: Respiratory Tract Infection Hx - cable inspector Hx Respiratory Tract Infection No 12/15/24 12:24 STOP Sleep Apnea STOP Sleep Apnea - cable inspector: STOP Sleep Apnea - cable inspector Hx Hypertension Yes: CONTROLLED WITH MED 12/15/24 12:24 Hx Sleep Apnea No 12/15/24 12:24 CPAP BIPAP Do you snore loudly (louder No 12/15/24 12:24 than talking or can be heard Do you often feel tired/ No 12/15/24 12:24 fatigued/ sleepy during daytime? Has anyone observed you stop No 12/15/24 12:24 breathing during sleep? STOP Results Negative 12/15/24 12:24 QUESTION #5 FULL TEXT : Do you snore loudly (louder than talking or can be heard through closed doors)? 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 Specify any problems Hx of Preganancy in last 3 N/A 12/15/24 12:24 Months Nurse Filling Out Transfusion DSCHRIBER 12/15/24 12:24 & Questions: Date: 12/15/24 12/15/24 12:24 Time: 12:25 12/15/24 12:24 Patient unable to answer at this time (ie. confused, unrespo /Reproduction History /Reproductive History - cable inspector: /Reproductive Hx- cable inspector Hx Now No 12/15/24 12:24 Gestational Age (in weeks): EDC: Hx Hx Para Hx Section SAB No 12/15/24 12:24 Active Medications Active Medications: Current Medications Generic Name Dose Route Start Last Admin Trade Name Freq PRN Reason Stop Dose Admin Acetaminophen 1,000 mg 12/29/24 07:30 12/29/24 06:28 Acetaminophen 500 Mg Tablet PO 12/29/24 07:31 1,000 mg PREOP ONE Administration Cefazolin Sodium 2 gm/ Sodium 110 mls @ 150 mls/hr 12/29/24 07:30 Chloride IV 12/29/24 08:13 INTRAOP ONE Tranexamic Acid 1,000 mg/ 110 mls @ 440 mls/hr 12/29/24 07:30 Sodium Chloride IV 12/29/24 07:44 INTRAOP ONE Tranexamic Acid 1,000 mg/ 110 mls @ 440 mls/hr 12/29/24 08:30 Sodium Chloride IV 12/29/24 08:44 INTRAOP ONE Magnesium Sulfate 1 gm/ 102 mls @ 408 mls/hr 12/29/24 07:30 12/29/24 06:28 Dextrose IV 12/29/24 07:44 408 mls/hr PREOP ONE Administration Lactated Ringer's 1,000 mls @ 15 mls/hr 12/29/24 06:00 12/29/24 06:27 IV 15 mls/hr .Q48H KALI Administration Insulin Human Lispro 1 - 6 unit 12/29/24 07:30 Insulin Lispro 100 Unit/Ml Insuln.Pen SC 12/29/24 14:30 Q4H PRN PRN BG>/= 180, SEE PROTOCOL Protocol PFSH Medical History Preoperative evaluation to rule out surgical contraindication Wears glasses Wears dentures Arthritis High cholesterol Back pain History of degenerative disc disease COPD (chronic obstructive pulmonary disease) Emphysema, unspecified Smoker History of pain when walking Hoarseness History of stress test Cardiology follow-up encounter History of DVT (deep vein thrombosis) Leg length discrepancy Lumbar radiculopathy H pylori ulcer (~05/01/20) Polycythemia Peripheral arterial occlusive disease Hypertension Home Medications ?Medication ?Instructions ?Recorded ?Last Taken ?Type aspirin 325 mg tablet 325 mg PO DAILY HEART HEALTH 05/18/20 12/24/24 History blood pressure monitor #1 ea 09/21/20 Unknown Rx labetalol 100 mg tablet 100 mg PO BID PRN hypertension #60 10/13/20 Unknown Rx tabs budesonide-formoterol HFA 160 2 puff inhalation Q12H ASTHMA 08/28/23 12/29/24 Rx mcg-4.5 mcg/actuation aerosol #10.2 grams inhaler (Symbicort) albuterol sulfate 90 mcg/actuation 1 puff inhalation Q6H PRN 09/04/23 Unknown Rx aerosol inhaler shortness of breath or wheezing #8.5 grams methocarbamol 500 mg tablet 500 mg PO TID PRN muscle spasm #90 12/01/23 Unknown Rx tabs Handicap Placard #1 ea 06/24/24 Unknown Rx lisinopril 40 mg tablet 40 mg PO DAILY BP #90 tabs 07/22/24 12/28/24 Rx gabapentin 600 mg tablet 600 mg PO Q6H Radiculopathy 1 10/05/24 12/29/24 Rx month #120 tabs atorvastatin 40 mg tablet 40 mg PO QHS CHOLESTEROL 12/15/24 12/28/24 History mecobalamin (vitamin B12) 1,000 1,000 mcg PO DAILY SUPPLEMENT 12/15/24 12/28/24 History mcg chewable tablet Allergy/AdvReac Type Severity Reaction Status Date / Time valbenazine (From Ingrezza) Allergy Other Verified 12/29/24 06:19 topiramate (From Topamax) AdvReac Severe tremors Verified 12/29/24 06:19 Family History Mother Diabetes Alzheimer disease Father Asthma Heart disease Myocardial infarction, Onset Age: 59 passed Sister Myocardial infarction early 40s Hypertension Diabetes Spinal stenosis Son Seizures born with hydocephalus Surgical History History of cardiac catheterization Hx of fusion of cervical spine History of colonoscopy myringotomy w ube, bilateral finger surgery EGD w/o or w/ brush/wash H/O partial cystectomy Social History Smoking Status: Current every day smoker tobacco type: cigarettes Tobacco: How many years used: 28 quit status: considering quitting alcohol intake: never substance use type: does not use what type of physical activity do you participate in: none Review of Systems (Anesthesia) ROS Narrative System reviewed and no additional complaints, except as documented.
--- NOTE | 2024-12-29 07:15 | HP.PCM_ITS ---
History and Physical
--- NOTE | 2024-12-29 07:15 | PCM.HP.BLA ---
History and Physical Date of Admission: 12/29/24 MR#: [id number] Acct: [id number] Name: MELBA BRADLEY Jr. Rep #: [id number] : 1975 Provider: Dr. Heladio Levine MD Age/Sex: 49/M [place] [facility] [email or web address] Status: Signed Intake Vital Signs 09/30/2515:07 12/20/2512:07 Height 5 ft 7 in 5 ft 7 in Weight: 170 lb BMI 26.6 BP 122/82 H Blood Pressure Location Lt brachial Position Sitting Respiration 18 Pulse 72 Pulse Source Monitor Temp 97 F L Temp Source Temporal Pulse Oximetry (%) 97 Oxygen Delivery Method room air Intake Visit Reasons: lumbar spine Chief Complaint: pre-op Allergies valbenazine (From Ingrezza) Allergy (Verified 12/23/24 13:57) Other topiramate (From Topamax) Adverse Reaction (Severe, Verified 12/23/24 13:57) tremors Medications ?Medication ?Instructions ?Recorded ?Confirmed ?Type aspirin 325 mg tablet 325 mg PO DAILY HEART HEALTH 05/18/20 12/23/24 History blood pressure monitor #1 ea 09/21/20 12/23/24 Rx labetalol 100 mg tablet 100 mg PO BID PRN hypertension #60 10/13/20 12/23/24 Rx tabs divalproex 500 mg tablet,extended 500 mg PO QHS DEPRESSION 01/07/22 12/23/24 History release 24 hr (Depakote ER) budesonide-formoterol HFA 160 2 puff inhalation Q12H ASTHMA 08/28/23 12/23/24 Rx mcg-4.5 mcg/actuation aerosol #10.2 grams inhaler (Symbicort) albuterol sulfate 90 mcg/actuation 1 puff inhalation Q6H PRN 09/04/23 12/23/24 Rx aerosol inhaler shortness of breath or wheezing #8.5 grams methocarbamol 500 mg tablet 500 mg PO TID PRN muscle spasm #90 12/01/23 12/23/24 Rx tabs Handicap Placard #1 ea 06/24/24 12/23/24 Rx lisinopril 40 mg tablet 40 mg PO DAILY BP #90 tabs 07/22/24 12/23/24 Rx gabapentin 600 mg tablet 600 mg PO Q6H Radiculopathy 1 10/05/24 12/23/24 Rx month #120 tabs atorvastatin 40 mg tablet 40 mg PO QHS CHOLESTEROL 12/15/24 12/23/24 History mecobalamin (vitamin B12) 1,000 1,000 mcg PO DAILY SUPPLEMENT 12/15/24 12/23/24 History mcg chewable tablet PFSH Medical History Preoperative evaluation to rule out surgical contraindication Wears glasses Wears dentures Arthritis High cholesterol Back pain History of degenerative disc disease COPD (chronic obstructive pulmonary disease) Emphysema, unspecified Smoker History of pain when walking Hoarseness History of stress test Cardiology follow-up encounter History of DVT (deep vein thrombosis) Leg length discrepancy Lumbar radiculopathy H pylori ulcer (~05/01/20) Polycythemia Peripheral arterial occlusive disease Hypertension Surgical History History of cardiac catheterization Hx of fusion of cervical spine History of colonoscopy myringotomy w ube, bilateral finger surgery EGD w/o or w/ brush/wash H/O partial cystectomy Family History Mother Diabetes Alzheimer disease Father Asthma Heart disease Myocardial infarction, Onset Age: 59 passed Sister Myocardial infarction early 40s Hypertension Diabetes Spinal stenosis Son Seizures born with hydocephalus Social History Smoking Status: Current every day smoker tobacco type: cigarettes Tobacco: How many years used: 28 quit status: considering quitting alcohol intake: never substance use type: does not use what type of physical activity do you participate in: none HPI lumbar spine Details: This documentation accurately reflects the service provided and the decisions made by me, Dr. Heladio Levine MD 12/23/24 6227. Part of today?s visit was documented by Charley DELGADO, acting as scribe. MELBA BRADLEY is a 49 year old M here today for preop, lumbar spine, dos 12/29/24. The patient is a 49-year-old male presenting with right hip pain and lumbar spinal stenosis. The right hip pain began in 2013 and has progressively worsened, particularly with walking and prolonged standing, necessitating frequent breaks. The patient reports that the pain is exacerbated by activity and alleviated by rest. The lumbar spinal stenosis has been a significant issue, with symptoms including back pain radiating down the leg, particularly on the right side. The patient experiences increased discomfort when attempting to walk or stand for extended periods. In 2018, the patient underwent cervical spine surgery due to cervical spinal stenosis, which was complicated by a deep vein thrombosis in the left knee shortly after the procedure. The patient has a history of nicotine dependence, smoking approximately a pack a day, which he acknowledges may affect his healing process post-surgery. He has expressed a commitment to quitting smoking to improve surgical outcomes. - Musculoskeletal: Reports right hip pain exacerbated by walking and standing. Denies any recent trauma. - Neurological: Reports back pain radiating down the right leg. Denies any new numbness or weakness. - Respiratory: Denies dyspnea or cough. - Cardiovascular: Denies chest pain or palpitations. Attestation: Documentation on this patient encounter was supported using ambient scribe technology/ voice AI technology. The patient consented to recording for the purpose of documenting the encounter. Provider reviewed content of the generated note prior to signature. 09/02/24: MELBA BRADLEY is a 49 year old M here today for MRI review of the lumbar spine. He has not done any recent physical therapy because before he was going to start he had a flare up of pain and did not want to make it worse. He does see Dr. Feliciano in pain management, they had discussed a spinal cord stimulator a few years ago but his insurance did not cover this. He complains of low back pain that is worse on the right and extends down the lateral right leg. The pain is worse when he stands. He can only walk short distances before the pain becomes severe and he has to sit down. If he is unable to sit down he will drop down to his knees and lean forward, this is the only way he gets relief. He did PT a year ago. He retired last year. He does have cyst on the left side of his neck. He does report a cervical fusion in 2018. He reports the surgery was helpful in reducing his pain. He developed blood clots after his surgery which required stent placement. He does take 325mg of aspiring daily. He does smoke a pack a day. He also has COPD. He does not have diabetes. Ortho Exam General General: Yes no acute distress Neurologic: Yes alert and Yes oriented x3 Psychologic: Yes reasonable and appropriate Spine SPINE TESTING CERVICAL THORACIC LUMBAR Musculoskeletal Strength 0=absent - 5=normal Details: Neurological exam of the lower extremities shows 5x5 power. Increased pain with right hip flexion. Pain with back extension. Normal sensations across all dermatomes. No hyperreflexia. No midline or paraspinal tenderness. Exam Narrative - Musculoskeletal: Strength testing of lower extremities showed equal and symmetric strength. No pain or pressure noted on deep palpation of the back. Coding Level of Care Code Off vis,est,level 4 Diagnoses Lumbar radiculopathy M54.16 Other intervertebral disc degeneration, lumbar region with discogenic back pain and lower extremity pain M51.362 Foraminal stenosis of lumbar region M48.061 Leg length discrepancy M21.70 Time Spent (min) 35 Assessment and Plan Assessment and Plan (1) Lumbar radiculopathy: Status: Chronic (2) Other intervertebral disc degeneration, lumbar region with discogenic back pain and lower extremity pain: Status: Acute (3) Foraminal stenosis of lumbar region: Status: Acute (4) Leg length discrepancy: Status: Acute Plan Again reviewed pt's lumbar spine MRI in detail with patient. Lumbar xrays show a mild multilevel disc height loss worse at L4-5 and L5-S1. There is a chronic L3 compression fracture deformity, unchanged from imaging from 2021. There is a subtle dextroscoliosis. There is a subtle retrolisthesis of L3 on L4. No instability seen on dynamic views. Reviewed MRI done recently which shows L5-S1 severe disc height loss with Modic changes with severe foraminal stenosis bilaterally. 1. Lumbar DDD - The patient will undergo surgical intervention to address the pain, which involves decompression and stabilization of the affected area. 2. Lumbar spinal stenosis - Surgical intervention is planned to alleviate symptoms by decompressing the spinal canal and stabilizing the spine. 3. Deep vein thrombosis - The patient is advised to discontinue aspirin five days prior to surgery to minimize bleeding risk and will resume post-operatively as directed. 4. Nicotine dependence - The patient is encouraged to quit smoking to enhance surgical outcomes and reduce the risk of complications such as infection and impaired bone healing. - Stop taking aspirin five days before surgery and resume as directed after surgery. - Quit smoking to improve healing and reduce complications. - Engage in regular walking post-surgery to aid recovery and prevent blood clots. - Attend all scheduled follow-up appointments and physical therapy sessions. Explained imaging findings in detail. I suspect most of his symptoms are arising from the severe disc degeneration L5-S1 with foraminal stenosis causing severe right lower extremity radiculopathy. His symptoms have caused significant neurogenic claudication. We discussed surgical and non surgical options including PT, pain management with diagnostic injections and an L5-S1 spinal fusion. We also discussed the possibility of a spinal cord stimulator which may control his pain but would not help with his function. Surgical recommendation would be L5-S1 decompression and fusion which will help with neurologic function, but I cannot guarantee that the pain will get completely better with surgery. He is the most concerned with his function. Discussed this procedure in detail and explained the risks, benefits and alternatives. The risks of surgery include but are not limited to infection, bleeding, injury to nerves and vessels, ileus, visceral injury, vascular injury, need for blood transfusion, persistent pain, persistent numbness and weakness, gait abnormality, DVT, pulmonary embolism, pneumonia, atelectasis, hardware failure, pseudoarthrosis, need for further surgery, adjacent segment degeneration. Discussed post-surgery restrictions such as no bending, lifting, or twisting. Answered all questions to the patient?s satisfaction. Patient understands and agrees to proceed with surgery. Consent was signed.Follow up two weeks post operatively or sooner if pain, swelling, numbness or associated symptoms, or concerns develop. All questions answered. Patient in agreement of plan.
[2024-12-29] MEDS: Cefazolin 1 GM/5 ML Vial 2 GM IV (08:03)
[2024-12-29] MEDS: Lidocaine 1% (5 ml sdv) 5 ML Vial IV (08:06)
[2024-12-29] MEDS: fentaNYL 100 MCG/2 ML Ampul IV (08:06)
[2024-12-29] MEDS: REMIFENTANIL HCL 1 MG VIAL IV (08:11)
--- NOTE | 2024-12-29 08:24 | RAD_ITS ---
PROCEDURE: RAD/Lumbar Spine 2 or 3 Views
[2024-12-29] MEDS: PROPOFOL 69.78 MG IV (08:25)
[2024-12-29] MEDS: TRANEXAMIC ACID 1,000 MG/10 ML ML 2000 MG IV (10:40)
--- NOTE | 2024-12-29 11:04 | OP.PCM_ITS ---
Procedures Musculoskeletal
--- NOTE | 2024-12-29 11:04 | PCM.OPRPT ---
Procedures Musculoskeletal [id number]-29xxx: Other Procedure See Report Operative Report (Standard) Operative Information Date of Procedure: 12/29/24 Pre-Operative Diagnosis: L5-S1 severe disc degeneration, foraminal stenosis, spondylolysis Post-Operative Diagnosis: Same Surgery/Procedure Performed: L5-S1 transforaminal lumbar interbody fusion mechanical facilities technician: Yes Hand Washer: Vianey Raymond Tasks completed by spa assistant manager: Closing, Removing tissue, Implanting device, Hemostasis: Electrocautery and Retracting Type of Anesthesia: General RN Documented Start/Stop Times: Operation Date: 12/29/24 07:30 Case Time Into Pre-Op 12/29/24 05:51 Anesthesia Start 12/29/24 08:00 Into Room 12/29/24 08:00 Out of Pre-Op 12/29/24 08:02 Procedure Start 12/29/24 08:35 Procedure End 12/29/24 10:47 Anesthesia End 12/29/24 11:01 Out of Room 12/29/24 11:01 Procedure Start Time: 08:35 Procedure Stop Time: 10:47 Select all DRAINS/GRAFTS/IMPLANTS that apply: Graft Graft details: Allograft cancellous chips, DBX, morselized autograft from lamina and facet and Implanted device Implanted device details: DePuy XPac TLIF cage, Viper prime pedicle screw instrumentation Estimated Blood Loss: 30 cc Specimen collected: No Description of surgery: Preoperative diagnosis: L5-S1 severe disc degeneration with foraminal stenosis, spondylolysis Postoperative diagnosis: Same Name of procedure: L5-S1 transforaminal lumbar interbody fusion (TLIF), minimally invasive right side approach, percutaneous pedicle screw instrumentation. . L5-S1 posterior spinal fusion and interbody fusion [id number] ? L5-S1 posterior pedicle screw instrumentation [id number] . L5-S1 insertion of cage [id number] . Local autograft . Cancellous allograft with DBX Attending Surgeon: Dr. Heladio Levine Estimated blood loss: 30 mL Anesthesia: GA Complications: None Implants: DePuy Synthes X-PAC TLIF cage, Viper prime screws Indications: Patient is a 49-year-old gentleman who has had a history of low back pain that radiates into right worse than left lower extremity. X-rays, CT and MRI revealed L5-S1 severe disc degeneration with Modic changes with bilateral lateral recess and foraminal stenosis, bilateral L5 spondylolysis. Patient was explained all options of treatment which included continued nonoperative treatment measures like rest physical therapy, epidural steroidal injections. After a prolonged period of of nonoperative treatment, patient elected to undergo surgical decompression & fusion since the symptoms severely affected her quality of life. All risks and benefits associated with the procedure were explained to the patient. The risks include but are not limited to infection, bleeding, injury to nerves and vessels, persistent paresthesia, persistent pain, dural tear, need for further procedures, adjacent segment degeneration, pseudoarthrosis, hardware failure, etc. Procedure: The patient was identified in the preoperative holding suite using unique patient identifiers. Skin was marked, consent was reviewed, and all questions were answered. The patient was then brought back to the operative room. A surgical timeout was performed to make sure correct procedure was being done on the correct patient and all operative room staff were on the same page. General endotracheal anesthesia was then given to the patient. Neuromonitoring leads were applied. The patient was then turned prone onto a Richard table. The back was prepped and draped in usual fashion. IV antibiotic was given as preoperative antibiotic. A final timeout was then again done just before starting the procedure. C-arm AP view was then taken. C-arm was positioned in a way that L5 was centralized and superior endplate of L5 and was parallel to the beam. Spinous process was centered between the pedicles. Midline was marked with skin marker and lateral borders of the pedicles were also marked. Skin marker was also utilized to allen transversely across the middle of the pedicles at L5. 2 vertical incisions about 1 inch Extending below this line were taken about 1/2 inch lateral to the pedicle line. The fascia was also incised vertically approximately the same length. Finger dissection was utilized to palpate the superior articular process and facet joint of L5-S1 on the right side. Sequential tubes were docked on the Right L5-S1 facet joint and 60 mm length and 21 mm diameter tubular retractor was then placed and was attached to the arm attached to the OR table. Muscle tissue was removed with pituitaries and hemostasis was achieved with Bovie. Right L5 inferior articular process and superior articular process of S1 were exposed with Bovie. Osteotome was utilized to remove a portion of the inferior articular process to expose the articular surface of S1. Some of this resected bone was used as autograft. Raffaele was then utilized to remove the rest of the inferior articular process and part of the lamina of L5. Superior articular process of S1 was resected with the help of osteotome and bur such that the cut was flush with the superior border of S1 pedicle. The traversing nerve root was identified and carefully retracted to expose the disc. Hemostasis was achieved with bipolar cautery. Blunt spreaders were utilized to enter the disc space under C-arm visualization. Pituitary was used to remove disc material. Curettes of various sizes and angulations were utilized to remove as much of the disc material as possible. End plates were curetted to remove all cartilage. Angled curettes were used to remove disc material from the other side underneath the central annulus. Depuy X-PAC trials were inserted into position and checked under C- arm lateral view. The disc space was then filled with morselized autograft from the lamina and facet mixed with allograft cancellous bone chips mixed with DBX which were then impacted with the trials. An 12 x 32 mm lordotic tall X-PAC cage filled with bone graft was then inserted into the disc space under x-ray control. Care was taken to make sure the cage was inserted deeper to the posterior longitudinal ligament. The expandable cage was then expanded to up to approximately 15 mm anterior height with approximately 15 degrees lordosis. The cage was found to be well fixed and not easily removable. AP and lateral views showed good positioning of the cage. Depuy Viper Prime screw tower was docked onto the transverse processes at L5. This was then slowly moved medially to reach the superior articular process of L5. This was then confirmed on C-arm and then a mallet was utilized to drive the trocar and screw into the pedicle going up to the medial wall of the pedicle on AP view. This was performed both sides. C-arm lateral view confirmed both trocars to be inside vertebral body. The screws were advanced. Similar procedure was done at S1 both sides. Cannulated pedicle screws (Depuy Viper) sizes were 7 x 55 mm bilaterally at L5 and 7 x 50 at S1 levels bilaterally. The lateral view showed good positioning of the screws and cage. 40 mm precontoured titanium 5.5 mm lordotic darian on the right and 45 mm on the left was then passed through the screw extensions and reduced down to the screws with the help of DepiSironaer Prime instrumentation system. AP and lateral views of the C-arm showed good positioning of the screws and cage. Final tightening with the torque screwdriver was then completed. Raffaele was utilized to decorticate the left L5-S1 facet joint and bone graft was placed over this. Hemostasis was achieved with the help of Bovie and FloSeal. Closure was done in layers with 0 Vicryls for the fascia, 2-0 Vicryls for the subcutaneous tissue, and Monocryl for the skin. Dressings were applied covered with Tegaderm. The patient was then turned supine onto a hospital bed. The patient was extubated and taken to PACU in stable condition. The patient tolerated the procedure well and no complications occurred. [employer] X-PAC cage & Viper Prime minimally invasive pedicle screw instrumentation system was utilized in this case. No dural tear was identified in this case. Multimodal neuro monitoring was utilized. All potentials stayed at baseline throughout the procedure. I was present for the entirety of the case and performed the surgery myself. Signal Engineer Vianey Raymond PA-C. My physician billing and accounting staff assistant was a vital part of this case. They were important in appropriate retraction during the case, and protection of soft tissues during the procedure. Their intimate knowledge of the case and my steps aided in safe and expedient completion of the procedure as well as appropriate position of the patient during the surgery. They were also vital in assisting with closure under my direct supervision. Surgical Findings: See operative note Complications Complications: No
--- NOTE | 2024-12-29 11:09 | POSTOP.ANE_ITS ---
Anesthesia: Postop Eval I
--- NOTE | 2024-12-29 11:09 | PCM.POST.ANE ---
Anesthesia: Postop Eval I Current Vital Signs Temperature: 97 F Pulse Rate: 95 Blood Pressure: 139/88 Respiratory Rate: 18 Pulse Ox: 98 Oxygen Delivery Method: Room Air Assessment Airway patent: Yes Spontaneous unlabored respirations: Yes Mental status: Awake and Calm nausea: No Vomiting: No Anesthesia Complication: No Fluid Hydration Crystalloid volume administer (ml): 1,100 Total IV fluid infused: 1,100 Progress Note Anesthesia document: Postop Eval 1 completed: Yes
--- NOTE | 2024-12-29 12:10 | POSTOPAN2_ITS ---
Anesthesia Postop Eval I Sum
--- NOTE | 2024-12-29 12:10 | PCM.POSTANE2 ---
Anesthesia Postop Eval I Sum Postop Eval Completion status Anesthesia document: Postop Eval 1 completed: Yes Anesthesia Postop Eval I Summary Anesthesia Postop Eval I Summary: Anesthesia Postop Eval I: Assessment Summary Airway patent Yes 12/29/24 11:10 REGIONAL DIRECTOR OF ADMISSIONS.GDOTT Spontaneous unlabored Yes 12/29/24 11:10 REGIONAL DIRECTOR OF ADMISSIONS.GDOTT respirations Mental status Awake,Calm 12/29/24 11:10 REGIONAL DIRECTOR OF ADMISSIONS.GDOTT nausea No 12/29/24 11:10 REGIONAL DIRECTOR OF ADMISSIONS.GDOTT Vomiting No 12/29/24 11:10 REGIONAL DIRECTOR OF ADMISSIONS.GDOTT Anesthesia Postop Eval I: Fluid Summary Crystalloid volume administer 1,100 12/29/24 11:10 REGIONAL DIRECTOR OF ADMISSIONS.GDOTT (ml) Colloids volume administered ( ml) Blood Product volume administered (ml) Total IV fluid infused 1,100 12/29/24 11:10 REGIONAL DIRECTOR OF ADMISSIONS.GDOTT Anesthesia Postop Eval I: Summary Notes Anesthesia Complication No 12/29/24 11:10 REGIONAL DIRECTOR OF ADMISSIONS.GDOTT Anesthesia Complication Comment: Post-operative progress note Anesthesia: Postop Eval II Evaluation Mental status: Awake and Calm Pain Level: 1 nausea: No Vomiting: No Complications Anesthesia Complication: No
[2024-12-29] MEDS: Ensure Surgery 237 ML LIQUID PO ×2 (12:59→17:09)
--- NOTE | 2024-12-29 13:39 | PCM.CONS.GEN ---
Assessment & Plan Assessment/Plan (1) Status post lumbar spinal fusion: PLAN: Plan Patient is a 49-year-old male who presented [facility] on 12/29/2024 for planned lumbar fusion procedure. Medicine consulted postoperatively for medical management. 1. L5-S1 disc degeneration with foraminal stenosis and spondylolysis ? Orthopedic surgery primary. S/p L5-S1 transforaminal lumbar interbody fusion procedure with Dr. Levine on 12/29. Tolerated procedure well, no intraoperative complications noted. Postoperative pain control with scheduled Tylenol, scheduled Mobic, p.o. oxycodone as needed and IV morphine as needed per orthopedics. Continue home gabapentin 600 mg 4 times daily. Not currently on DVT prophylaxis; will defer to orthopedics for this. PT/OT/case management consulted. Follow-up a.m. labs. 2. History of DVT, history of PAD s/p iliac stenting, hypertension, hyperlipidemia ? Patient has history of DVT that developed about 1 week after his prior cervical spine procedure in 2018 as below. Also has history of PAD with iliac stenting done in 2018. He is on aspirin 325 mg daily at home. Aspirin has been on hold for 1 week prior to the surgery per the direction of orthopedics. Will defer to orthopedics on timing of restarting aspirin but would suspect aspirin can be restarted quite soon. Mildly hypotensive to the 110s postoperatively. Okay to continue home lisinopril with hold parameters in place. Continue home statin. 3. COPD ? Stable on room air at rest postoperatively. Continue home inhalers. 4. Tobacco dependence ? Patient denied need for nicotine replacement therapy while inpatient. Strongly encouraged cessation on discharge. 5. History of cervical spine stenosis s/p cervical spine surgery ? Prior surgery noted in 2018. No current C-spine issues. DVT prophylaxis: Per orthopedics Total clinical time spent by myself addressing the patient's medical issues, reviewing all the data, and collaborating with patient's care team: 38 minutes. HPI Consult Data Date of Consult: 12/29/24 HPI Narrative Reason for Consultation: Postoperative medical management HPI Narrative: MELBA BRADLEY, is a 49 M who presented to [facility] on 12/29/2024 for planned orthopedic procedure. Medicine consulted postoperatively for medical management. Patient had L5-S1 transforaminal lumbar interbody fusion procedure done with Dr. Levine today. Tolerated procedure well, no intraoperative complications noted. I saw the patient on the floor earlier this evening. Per nursing, patient had been walking on the floor for 15 to 20 minutes when I saw him. He was moving quite well and did not appear to be in any significant pain. Patient stated that he had minimal back pain currently and already felt better from a movement standpoint than he did prior to his procedure. He denied any other acute concerns currently. [facility] Medical History Preoperative evaluation to rule out surgical contraindication Wears glasses Wears dentures Arthritis High cholesterol Back pain History of degenerative disc disease COPD (chronic obstructive pulmonary disease) Emphysema, unspecified Smoker History of pain when walking Hoarseness History of stress test Cardiology follow-up encounter History of DVT (deep vein thrombosis) Leg length discrepancy Lumbar radiculopathy H pylori ulcer (~05/01/20) Polycythemia Peripheral arterial occlusive disease Hypertension Home Medications ?Medication ?Instructions ?Recorded ?Last Taken ?Type aspirin 325 mg tablet 325 mg PO DAILY [facility] 05/18/20 12/24/24 History blood pressure monitor #1 ea 09/21/20 Unknown Rx labetalol 100 mg tablet 100 mg PO BID PRN hypertension #60 10/13/20 Unknown Rx tabs budesonide-formoterol HFA 160 2 puff inhalation Q12H ASTHMA 08/28/23 12/29/24 Rx mcg-4.5 mcg/actuation aerosol #10.2 grams inhaler (Symbicort) albuterol sulfate 90 mcg/actuation 1 puff inhalation Q6H PRN 09/04/23 Unknown Rx aerosol inhaler shortness of breath or wheezing #8.5 grams methocarbamol 500 mg tablet 500 mg PO TID PRN muscle spasm #90 12/01/23 Unknown Rx tabs Handicap Placard #1 ea 06/24/24 Unknown Rx lisinopril 40 mg tablet 40 mg PO DAILY BP #90 tabs 07/22/24 12/28/24 Rx gabapentin 600 mg tablet 600 mg PO Q6H Radiculopathy 1 10/05/24 12/29/24 Rx month #120 tabs atorvastatin 40 mg tablet 40 mg PO QHS CHOLESTEROL 12/15/24 12/28/24 History mecobalamin (vitamin B12) 1,000 1,000 mcg PO DAILY SUPPLEMENT 12/15/24 12/28/24 History mcg chewable tablet Allergy/AdvReac Type Severity Reaction Status Date / Time valbenazine (From Ingrezza) Allergy Other Verified 12/29/24 06:19 topiramate (From Topamax) AdvReac Severe tremors Verified 12/29/24 06:19 Family History Mother Diabetes Alzheimer disease Father Asthma Heart disease Myocardial infarction, Onset Age: 59 passed Sister Myocardial infarction early 40s Hypertension Diabetes Spinal stenosis Son Seizures born with hydocephalus Surgical History History of cardiac catheterization Hx of fusion of cervical spine History of colonoscopy myringotomy w ube, bilateral finger surgery EGD w/o or w/ brush/wash H/O partial cystectomy Social History Smoking Status: Current every day smoker tobacco type: cigarettes Tobacco: How many years used: 28 quit status: considering quitting alcohol intake: never substance use type: does not use what type of physical activity do you participate in: none ROS Constitutional Constitutional: Denies chills, fatigue, fever(s) or weakness Eyes Eyes: Denies change in vision Cardiovascular Cardiovascular: Denies chest pain Respiratory/Chest Respiratory/Chest: Denies shortness of breath at rest Gastrointestinal Gastrointestinal: Denies abdominal pain Musculoskeletal Musculoskeletal: Denies arthralgias, back pain, joint pain or myalgias Neurologic Neurologic: Denies dizziness, focal weakness, headache(s), numbness or tingling Physical Exam Const alert, oriented x3, no apparent distress and average body habitus Constitutional Narrative: Pleasant middle-age male, standing at the bedside comfortably, conversing normally, in no acute distress. General Appearance: cooperative and comfortable HEENT normocephalic, head/scalp atraumatic, hearing grossly normal bilaterally, nasal mucous membranes and turbinates normal and moist oral mucous membranes Eyes PERRL, EOMs intact bilaterally and conjunctivae normal Neck full ROM Chest inspection of chest normal Resp normal respiratory effort, normal air movement, no use of accessory muscles and clear to auscultation bilaterally Cardio regular rate, regular rhythm, no murmurs and peripheral pulses 2+ throughout GI normal to inspection, nondistended, normoactive bowel sounds, soft to palpation, non-tender and non-distended Back/Spine normal ROM Back/Spine Narrative: Bandage in place over surgical site. No tenderness to palpation noted. Extremity normal to inspection, full ROM and no pedal edema Skin no rashes or lesions noted Neuro moves all extremities, no focal motor deficits and no sensory deficits noted Psych mental status grossly normal Lab / Micro Data 12/23/24 13:04 12/23/24 13:04 Labs: Laboratory Results - last 24 hr 12/29/24 06:25: POC Glucose 89 Charges/Coding Visit Charges Inpatient E&M: 55900 Subs Hosp L2
[2024-12-29] MEDS: Cefazolin 2 GM in 0.9% Normal Saline (100mL Bag) 100 ML IV (17:00)
[2024-12-29] MEDS: 0.9% Saline Lock 10 ML Syringe IV (20:25)
[2024-12-29] MEDS: Senna/Docusate Sodium 1 Tablet 2 TABLET PO (22:03)
[2024-12-30] MEDS: 0.9% Saline Lock 10 ML Syringe IV (00:41)
[2024-12-30] MEDS: Cefazolin 2 GM in 0.9% Normal Saline (100mL Bag) 100 ML IV (00:41)
[2024-12-30 00:49] VITALS: BP 135/69; PULSE 84; RESP 16; TEMP 37; O2SAT 96
[2024-12-30 05:15] VITALS: BP 127/79; PULSE 78; RESP 16; TEMP 36.8; O2SAT 96
--- NOTE | 2024-12-30 05:42 | RAD_ITS ---
PROCEDURE: RAD/Lumbar Spine 2 or 3 Views
[2024-12-30 05:59] LABS: Hematocrit 40.2 % (40-54); Hemoglobin 13.9 g/dL (13.0-16.5); Immature Granulocytes Count 0.090 X10^3/uL (0.0-0.0); Mean Corp Hgb Conc 34.6 g/dL (32-36); Mean Corpuscular Volume 88.5 fL (80-94); Mean Platelet Vol. 12.4 fl (6.2-12.0); NRBC Flagged by Analyzer 0 % (0-5); Platelet Count 119 K/mm3 (150-450); RBC Distribution Width CV 12.8 % (11.6-14.6); RBC Distribution Width SD 41.3 fl (35.1-43.9); Red Blood Count 4.54 M/mm3 (4.6-6.2); White Blood Count 13.4 K/mm3 (4.4-11.0)
[2024-12-30 06:50] LABS: Anion Gap 10 (5-15); BUN 11 mg/dL (4-19); BUN/Creat Ratio 15.6 RATIO (10-20); Calcium,Total 8.9 mg/dL (7.6-11.0); Carbon Dioxide 22.5 mmol/L (21.0-32.0); Chloride 106 mmol/L (98-108); Estimated Creatinine Clearance 126.30 ml/min (50-250); Glucose 224 mg/dL (70-99); Potassium 3.8 mmol/L (3.3-5.1)
[2024-12-30 07:22] VITALS: BP 127/72; PULSE 70; RESP 16; TEMP 36.5; O2SAT 95
[2024-12-30] MEDS: Senna/Docusate Sodium 1 Tablet 2 TABLET PO (07:50)
--- NOTE | 2024-12-30 10:29 | PCM.PN.ORT ---
Subjective Subjective Postop day 1 L5-S1 fusion. Patient is doing well postoperatively with very minimal pain. The patient has been up and walking without any assistive devices. The patient denies any nausea or vomiting. Denies any chest pain or shortness of breath. He says that his pain prior to surgery has already been improving. As of right now the patient is very happy with the outcome of his surgery. Plan for home discharge today. Awaiting PT/OT notes. Seen with Dr. Levine. Objective Data Objective Data Vital Signs: Vital Signs Temp Pulse Resp BP Pulse Ox O2 Del Method O2 Flow Rate 97.7 F L 70 16 127/72 H 95 Room Air 4 12/30/24 07:22 12/30/24 07:22 12/30/24 07:22 12/30/24 07:22 12/30/24 07:22 12/30/24 08:00 12/29/24 11:45 Oxygen Flow Rate (L/min) 4 Oxygen Delivery Method Room Air Weight: 171 lb 15.369 oz Body Mass Index (BMI) 26.9 Intake & Output: Intake and Output for Last 24 Hours 12/28/24 12/29/24 12/30/24 23:59 23:59 23:59 Intake Total 1212 / 1212 110 / 110 Output Total 250 / 250 Balance 962 / 962 110 / 110 Lab / Micro Data 12/30/24 05:36 12/30/24 05:36 Labs: Laboratory Results - last 24 hr 12/30/24 05:36: WBC 13.4 H, RBC 4.54 L, Hgb 13.9, Hct 40.2, MCV 88.5, MCH 30.6, MCHC 34.6, RDW Std Deviation 41.3, RDW Coeff of Clay 12.8, Plt Count 119 L, MPV 12.4 H, Immature Gran % (Auto) 0.700, Neut % (Auto) 83.5 H, Lymph % (Auto) 9.4 L, Troup % (Auto) 6.2, Eos % (Auto) 0.1, Baso % (Auto) 0.1, Absolute Neuts (auto) 11.2 H, Absolute Lymphs (auto) 1.25, Nucleated RBC % 0, Sodium 139, Potassium 3.8, Chloride 106, Carbon Dioxide 22.5, Anion Gap 10, BUN 11, Creatinine 0.68 L, Estim Creat Clear Calc 126.30, Est GFR (MDRD) Non-Af 113, BUN/Creatinine Ratio 15.6, Glucose 224 H, Calcium 8.9 Micro: Microbiology 12/23/24 13:04 Swab (Method) Nasal Screen MRSA/MSSA - Final Radiography Diagnostic Testing: Radiology Impression Lumbar Spine X-Ray 12/29/24 08:24 IMPRESSION: As above. Reading Location: [address] Lumbar Spine X-Ray 12/30/24 05:42 IMPRESSION: Spondylosis. Decompression and fusion at L5-S1 in the interim. Unremarkable metallic hardware. Reading Location: [place] [id number] Physical Exam Narrative Neurological examination of the lower extremity shows 5X5 power. Normal sensation across all dermatomes. Physical examination of the back shows Tegaderm and gauze CDI. Const alert, oriented x3 and no apparent distress Assessment & Plan Assessment/Plan (1) Status post lumbar spinal fusion: PLAN: Plan Postop day 1 L5-S1 fusion. Obtained reviewed x-rays today which show hardware and bone graft in good position. Patient is doing very well postoperatively with minimal pain. Awaiting PT/OT clearance. Plan for home discharge today. Home medications include oxycodone, acetaminophen, methocarbamol, senna. The patient takes a aspirin 325 mg. Because of that we will hold the aspirin until Friday and we will hold off on giving any other NSAIDs as of right now. If needed we can discuss that in the future. The patient also reports he has plenty of methocarbamol, the muscle relaxer, at home. No refills will be sent at this time he can call the office if he needs a refill. Reviewed and educated on the use of the incentive spirometer. Reviewed and educated on restrictions of no bending, lifting, twisting. Follow-up in 2 weeks in the clinic. Patient is in agreement to the plan.
--- NOTE | 2024-12-30 10:33 | DCINST_ITS ---
Discharge Instructions
--- NOTE | 2024-12-30 10:33 | PCM.DC ---
Discharge Instructions DC O2, CPAP, BIPAP needs Home O2 Discharge instructions: No Follow Up Care Test Results: Test results from this visit will be discussed in further detail at your follow-up appointment, if applicable. Discharge Plan Admission Admit Date/Time: 12/29/24 10:58 Attending Provider: Heladio Levine Primary Care Provider: Alejandro Lincoln Consulting Providers: Fer Colon; Freddie Jules Instructions Patient Instructions: Lumbar Fusion Dc Additional Instructions / Restrictions: Keep Tegaderm and gauze clean and dry. If Tegaderm is intact, okay to shower. After 5 days remove Tegaderm and gauze and cover with a Band-Aid. Replace Band-Aid daily thereafter. No bending lifting or twisting. Follow-up in clinic in 2 weeks. Discharge Orders/Prescriptions Prescriptions: New acetaminophen 500 mg Tablet 1,000 mg PO Q6H Qty: 30 0RF oxycodone 5 mg Tablet 2.5 - 5 mg PO Q6H PRN (Reason: pain) 7 Days Qty: 28 0RF sennosides-docusate sodium [Stimulant Laxative Plus] 8.6-50 mg Tablet 2 tab PO BID PRN (Reason: constipation) Qty: 14 0RF Continued (DME) blood pressure monitor Kit See Rx Instructions .ROUTE .MEDSUPPLY Qty: 1 0RF Rx Instructions: Check blood pressure twice a day budesonide-formoterol [Symbicort] 160-4.5 mcg/actuation HFA aerosol inhaler 2 puff INHALATION Q12H Qty: 10.2 1RF methocarbamol 500 mg tablet 500 mg PO TID PRN (Reason: muscle spasm) Qty: 90 1RF mecobalamin (vitamin B12) 1,000 mcg tablet,chewable 1,000 mcg PO DAILY atorvastatin 40 mg tablet 40 mg PO QHS labetalol 100 mg tablet 100 mg PO BID PRN (Reason: hypertension) Qty: 60 1RF Rx Instructions: Take for Systolic Bp > 150mmHg and Diastolic > 90 mmHg albuterol sulfate 90 mcg/actuation HFA aerosol inhaler 1 puff INHALATION Q6H PRN (Reason: shortness of breath or wheezing) Qty: 8.5 3RF (DME) Handicap Placard See Rx Instructions .ROUTE .MEDSUPPLY Qty: 1 0RF Rx Instructions: As directed, length of time 3 years lisinopril 40 mg tablet 40 mg PO DAILY Qty: 90 1RF gabapentin 600 mg tablet 600 mg PO Q6H 30 Days Qty: 120 2RF Patient Comments: pt reports he takes this routine Held aspirin 325 MG tablet 325 mg PO DAILY Hold Instructions: Resume on 01/01/25. Other Ambulatory Orders: 12 Lead EKG (Routine) Timeframe: 20241223 Location: None Selected Ordered By: Dr. Heladio Levine Referrals / Follow Up: Alejandro Lincoln MD [Primary Care Provider, Internal Medicine] Disposition Disposition (needs filled in before D/C Order can be placed): Home, Self Care
--- NOTE | 2024-12-30 10:48 | CASEMGMT ---
Dx:lumbar fusion LACE:1 6-Clicks:24, PT eval'd- no therapy rec. OT did eval. Medical record reviewed and patient evaluated for identification of discharge planning needs. Based on this review, at this time criteria are not present to indicate a need for discharge planning. Will remain available to assist with discharge planning needs as identified or requested. Pt has a walker at home should he need it per notes.
[2024-12-30 10:50] VITALS: BP 132/79; PULSE 72; RESP 18; TEMP 36.9; O2SAT 96
--- NOTE | 2024-12-30 12:35 | PHA.DC_ITS ---
Pharmacy DC Med Counseling
--- NOTE | 2024-12-30 12:35 | PHA.DC.COU.R ---
Pharmacy [facility] has performed discharge medication counseling for this patient. The patient was counseled on the following discharge medications and changes in medications for homegoing review. - Acetaminophen 500 mg tablet, Oxycodone 5 mg tablet, Senna/docusate 8.6/50 mg tablet The Reason for Use, instructions for use, and potential side effects were reviewed for all new medications. The patient's questions regarding all of their medications were answered. The patient was able to verbally demonstrate an understanding of their discharge medications. Medications at Discharge Home Medications aspirin 325 mg tablet 325 mg PO DAILY [facility] 05/18/20 Held on 12/30/24. Instructions: Resume on 01/01/25. blood pressure monitor #1 ea 09/21/20 labetalol 100 mg tablet 100 mg PO BID PRN hypertension #60 tabs 10/13/20 budesonide-formoterol HFA 160 mcg-4.5 mcg/actuation aerosol inhaler (Symbicort) 2 puff inhalation Q12H ASTHMA #10.2 grams 08/28/23 albuterol sulfate 90 mcg/actuation aerosol inhaler 1 puff inhalation Q6H PRN shortness of breath or wheezing #8.5 grams 09/04/23 methocarbamol 500 mg tablet 500 mg PO TID PRN muscle spasm #90 tabs 12/01/23 Handicap Placard #1 ea 06/24/24 lisinopril 40 mg tablet 40 mg PO DAILY BP #90 tabs 07/22/24 gabapentin 600 mg tablet 600 mg PO Q6H Radiculopathy 1 month #120 tabs 10/05/24 atorvastatin 40 mg tablet 40 mg PO QHS CHOLESTEROL 12/15/24 mecobalamin (vitamin B12) 1,000 mcg chewable tablet 1,000 mcg PO DAILY SUPPLEMENT 12/15/24 acetaminophen 500 mg tablet 1,000 mg (2 x 500 mg) PO Q6H #30 tabs 12/30/24 oxycodone 5 mg tablet 2.5 - 5 mg (0.5 - 1 x 5 mg) PO Q6H PRN pain 7 days #28 tabs 12/30/24 sennosides 8.6 mg-docusate sodium 50 mg tablet (Stimulant Laxative Plus) 2 tab PO BID PRN constipation #14 tabs 12/30/24
[2024-12-30 13:26] VITALS: BP 119/81; PULSE 79; RESP 15; TEMP 36.6; O2SAT 97
--- NOTE | 2024-12-30 14:19 | CHAPLAIN ---
Type of Pastoral Visit _x__ Initial Visit ___ Follow-up Visit ___ On-call Visit ___ General Patient Visit ___ Spiritual Assessment ___ Family Conference ___ Bereavement ___ Rapid Response ___ Code Blue ___ Other (describe below) Pastoral Care Referral From _x__ Patient ___ Family ___ Nurse ___ Physician ___ Geological Technical Officer ___ Roll Up Operator ___ Other (describe below) Sacrament/Intervention _x__ Active listening ___ Anointing ___ Latter-Day ___ Bereavement ___ Communion _x__ Marlene exploration ___ _x__ Life review _x__ Prayer ___ Reconciliation ___ Sacrament of Sick _x__ Supportive presence ___ Wedding ___ Other (describe below) Pastoral Comments patient is alert and very open to talking with this cookee; pt gives long history of health issues and the culmination of recent surgery; pt speaks of his life and reviewing his decisions and his health; pt has had a new understanding or perspective on life and how he wants to live from now on; pt is ready to make choices to increase health and his spiritual life too; pt plans to start back to religion with his girlfriend and to 'be around for his children';
== END 2024-12-30 14:13 | disposition home or self-care (01) | DRG 448 ==
LOC: ACINP 11:48 → MS3 15:17
PROVIDERS: Anesthesiology; Student in an Organized Health Care Education/Training Program; Admitting Provider Orthopaedic Surgery Orthopaedic Surgery of the Spine; PCP Internal Medicine; Referring Provider Orthopaedic Surgery Orthopaedic Surgery of the Spine; Visit Provider Orthopaedic Surgery Orthopaedic Surgery of the Spine
PROC: 0SG30AJ Fusion of Lumbosacral Joint with Interbody Fusion Device, Posterior Approach, Anterior Column, Open Approach (ICD-10-PCS; principal; 2024-12-29 07:00)
DX: M51.17 Intervertebral disc disorders with radiculopathy, lumbosacral region (principal); E78.00 Pure hypercholesterolemia, unspecified; J43.9 Emphysema, unspecified; I10 Essential (primary) hypertension; M48.061 Spinal stenosis, lumbar region without neurogenic claudication; M48.07 Spinal stenosis, lumbosacral region; M43.07 Spondylolysis, lumbosacral region; F17.210 Nicotine dependence, cigarettes, uncomplicated; M21.70 Unequal limb length (acquired), unspecified site; Z86.718 Personal history of other venous thrombosis and embolism; Z79.51 Long term (current) use of inhaled steroids; Z79.899 Other long term (current) drug therapy
CPT/HCPCS: 36415; 72100; 76000; 80048; 82962; 83036; 83735; 85025; 86850; 86900; 86901; 87081; 93005; 94668; 97161; 99406; C1713; A4216; J2405; J3475

== ENCOUNTER 2025-02-24 15:00 | Outpatient (RCR) | payer MEDICARE, MEDICAID, SELFPAY ==
--- NOTE | 2025-01-25 16:33 | HP.PTEVAL ---
Patient's Visit Information Visit Information Visit Information: MELBA BRADLEY Jr. is a 49 year old M referred to Physical Therapy by POLA Lundy with a diagnosis of S/P ARTHODESIS. Date of Evaluation: 01/25/25 Physical Therapist: Hakan Reeder PT, Cert MDT, OCS Visit Plan Frequency: 2x /Week Duration: 4 Weeks Plan: s/p LUMBAR FUSION DEC 29 -NO BLT NO LIFTING 10#> PT INTERVENTIONS DLS ,POSTURAL EX'S ,LE FLEXABILITY ,BLE STRENGTHENING ,ACTIVITY MODIFICATION AND BODY MECHANICS Subjective Subjective: This 49 y/o male presents to physical therapy with s/p lumbar fusion on 12/29/24. Patient procedure L5-S1 transforaminal lumbar interbody fusion done by DR Levine [facility] . Patient d/c next day. Patient had lumbar pain with radicular 2014 which progressively worse past ~ 1year . Patient MRI L5-S1: There is grade 1 anterolisthesis measuring 4.2 mm. Moderate diffuse disc bulge. Facet joint arthropathy. The spinal canal is not narrowed. There is moderate bilateral neural foramina narrowing.L4-5: There is mild diffuse disc bulge. Superimposed broad-based left foraminal disc protrusion measuring 3.7 mm. Bilateral facet joint arthropathy and ligamentum flavum hypertrophy. The spinal canal is not narrowed. There is mild right and moderate left neural foramina narrowing.L3-4: There is grade 1 anterolisthesis measuring 2.8 mm. Mild diffuse disc bulge. Superimposed broad-based left foraminal disc protrusion measuring 3.6 mm. The spinal canal is not narrowed. There is mild right and moderate left neural foraminal narrowing.L2-3: There is mild diffuse disc bulge. Bilateral facet joint arthropathy and ligamentum flavum hypertrophy. is not narrowed. There is mild right and moderate left neural. CT scan showed 5-S1, vacuum phenomena. Sclerotic changes at the opposite endplates. Bilateral L5 spondylolysis. Moderate bilateral foramina stenosis with potential abutment upon the exiting bilateral L5 nerves. Patient see Jasvir Raymond lifting restriction 10 # and NO BLT on 01/13/25 and had x-rays looked . RTD in 4 weeks. Patient tried PT and pain management prior to surgery which did not helped. Patient is very pleased with progress. Patient has no pain. Stopped pain mediaction but taking gabapentin for neuropathy. Denies paresthesia/tingling . Bowel/bladder - Sleeping good . Patient condition affects ability to RTW. SOCIAL: single VOCATION : Disablity Objective Objective: POSTURE: mild forward posture GAIT: reciprocal pattern NEURO: denies paresthesia/tingling ,reflexes L3-4,L4-5,L5-S1 1/3 PALPATION: unremarkable FLEXABILITY: WFL hamstrings MMT: quads/hamstrings 4/5 , hip flexion 4/5 ,ankle 4/5 LUMBAR ROM: flexion 50% loss ,extension 50% loss ,side loss 50% Special Tests L/S Slump test left side: Negative L/S Slump test right side: Negative L/S Left Straight Leg Raise: Negative L/S Right Straight Leg Raise: Negative Balance/Special Test Scores Oswestry Low Back Score: 13 Goals Goal 1:: Patient to be I with HEP back Goal Time Frame: 4-6 Weeks Goal 2:: Patient to demonstrate 70% improvement with improved function and ADLS Goal Time Frame: 4-6 Weeks Goal 3:: Patient to improve lumbar ROM for function of recovery to put on shoes and ADL at home. Goal Time Frame: 4-6 Weeks Goal 4:: Patient to improve back oswestry score by 5 points to QOL and function Goal Time Frame: 4-6 Weeks Rehabilitation Potential Physical Therapy Diagnosis: Patient underwent s/p lumbar fusion Dec 13 with patient doing well with decrease ROM and impairs function with ADLS and housework tasks thus benefit from skilled PT Rehabilitation Potential: Fair Anticipated Interventions Patient/Client Instruction: Educate patient on: Condition and Plan of Care For the Purpose of:: To decrease pain, To increase ROM, To improve muscle performance and motor function, To increase tolerance to activity/condition/position, To improve ability of physical actions for home/community/work/leisure, To improve health of tissue, To decrease soft tissue restriction and To increase flexibility/ROM Therapeutic Exercise to Include: Strength training, Postural training, Flexibilty training and Dynamic Lumbar Stabilization For the Purpose of:: To decrease pain, To improve muscle performance and motor function, To improve ability to perform ADL's, To increase tolerance to activity/condition/position, To improve ability of physical actions for home/community/work/leisure, To improve health of tissue, To decrease soft tissue restriction and To improve tolerance to ADL's Text: Thank you for the opportunity to evaluate your patient. For Medicare and Medicare HMO plans, please review the plan of care and approve it. It will need to be FAXED BACK to us at [phone] for Medicare purposes. For Medicare only, by signing this I certify the plan of care. Please let me know if there are questions or concerns regarding this plan of care. Physician Signature: Date:
== END 2025-02-24 19:00 | disposition home or self-care (01) ==
LOC: PT 15:00
PROVIDERS: PCP Internal Medicine; Referring Provider Student in an Organized Health Care Education/Training Program; Visit Provider Student in an Organized Health Care Education/Training Program
DX: Z98.1 Arthrodesis status (principal); Z47.89 Encounter for other orthopedic aftercare
CPT/HCPCS: 97110; 97162